=== PATIENT | male | born 1955 | race Caucasian/White ===

== ENCOUNTER 2019-08-16 07:49 | Emergency (ER) | payer OTHER ==
[2019-08-16 08:54] VITALS: BMI 30.4
--- NOTE | 2019-08-16 09:09 | PDOC ---
Attending Attestation - Resident Resident Name: Tyler Olea - ED Attending Attestation I have performed the following: I have examined & evaluated the patient, The case was reviewed & discussed with the resident, I agree w/resident's findings & plan, Exceptions are as noted - HPI HPI: 08/16/19 09:04 64y M hx of CHF, DM, Gerd, HTN, HL, parkinsons, gout, schizoaffective d/o, depression presents fall from bed. Patient states he was in his usual state of health this morning was reaching out for his coffee and slipped off the side of his bed, striking the right faith on a table. Patient denies any LOC, nausea, vomiting, vision changes, focal numbness, tingling, weakness. He does endorse some mild discomfort at the site of injury. Patient also endorses mild right- sided neck pain when he turns his head. Patient denies any other symptoms including chest pain, abdominal pain, palpitations, fever, chills, dysuria, diarrhea. Physical Exam: GENERAL: The patient is awake, alert, and fully oriented, Nontoxic - in no acute distress. HEAD: Normocephalic, moderate tenderness along the right faith without obvious signs of injury including step-offs, ecchymosis, erythema EYES: extraocular movements intact, sclera anicteric, conjunctiva clear. ENT: Normal voice, Moist mucous membranes. No signs of raccoon eyes, leyva signs, hemotympanum NECK: Normal range of motion, supple BACK: No focal bony tenderness along the cervical thoracic or lumbar spine, mild tenderness along the right paracervical musculature. LUNGS: Breath sounds equal, clear to auscultation bilaterally. No wheezes, no rhonchi, no rales. HEART: Regular rate and rhythm, normal S1 and S2 without murmur, rub or gallop. ABDOMEN: Soft, nontender, No guarding, no rebound. No CVA tenderness EXTREMITIES: Normal range of motion, no edema. Moving all 4 extremities spontaneously and symmetrically without discomfort NEUROLOGICAL: No facial assymetry, Normal speech, PSYCH: Normal mood, normal affect. SKIN: Warm, Dry, normal turgor, 64-year-old gentleman presenting with mechanical fall with direct trauma to the right faith and moderate tenderness along the right paraspinal musculature Will obtain CT facial bones, cervical spine and head percocet for pain (he normally tkes it for his back)
--- NOTE | 2019-08-16 09:21 | PDOC ---
History of Present Illness - General Chief Complaint: Injury Stated Complaint: FALL Time Seen by Provider: 08/16/19 08:37 - History of Present Illness Initial Comments: 08/16/19 09:21 64 y/o M hx of CHF, HTN, DM, GERD, HLD, Parkinson's, Gout, Depression, CVA present to the ED after a fall this a.m at [facility]. He was in bed reaching for coffee at bedside table when he fell of the edge. He hit the right side of his head on the table edge. He denies any LOC before or after event. He was BIBEMS. He endorses tenderness on right side of his head. He denies any headache, nausea, vomiting, use of anticoagulation, numbness or tingling on his right side, chest pain, shortness of breath, palpitations. 08/16/19 09:22 Past History - Past Medical History Allergies/Adverse Reactions: Allergies Allergy/AdvReac Type Severity Reaction Status Date / Time No Known Allergies Allergy Verified 08/16/19 08:18 Cardiac Disorders: Yes (HF) COPD: No Diabetes: Yes GI Disorders: (GERD) HTN: Yes Hypercholesterolemia: Yes Psychiatric Problems: Yes (depression, Schizoaffectivde, Bipolar) Other medical history: Parkkinson's, Gout, - Psycho Social/Smoking Cessation Hx Smoking History: Never smoked Have you smoked in the past 12 months: No Hx Alcohol Use: No Drug/Substance Use Hx: No Review of Systems - Review of Systems Comments:: 08/16/19 09:26 GENERAL/CONSTITUTIONAL: No fever or chills. No weakness. HEAD, EYES, EARS, NOSE AND THROAT: No change in vision. No ear pain or discharge. No sore throat. CARDIOVASCULAR: No chest pain or shortness of breath RESPIRATORY: No cough, wheezing, or hemoptysis. GASTROINTESTINAL: No nausea, vomiting, diarrhea or constipation. GENITOURINARY: No dysuria, frequency, or change in urination. MUSCULOSKELETAL: No joint or muscle swelling or pain. No neck or back pain. SKIN: No rash NEUROLOGIC: No headache, vertigo, loss of consciousness, diminishes sensation on right (chronic) ENDOCRINE: No increased thirst. No abnormal weight change *Physical Exam - Vital Signs Last Vital Signs Temp Pulse Resp BP Pulse Ox 98.2 F 92 H 16 128/77 95 08/16/19 07:50 03/12/20 07:50 08/16/19 07:50 08/16/19 07:50 08/16/19 07:50 - Physical Exam 08/16/19 09:11 PE: GENERAL: Awake, alert, and fully oriented, in no acute distress HEAD: echymoses on left mandible and maxilla.old. pt states from dental procedure last week. EYES: EOMI, sclera anicteric, conjunctiva clear ENT: Auricles normal inspection, hearing grossly normal, no hemotympanum nares patent, oropharynx clear without exudates. Moist mucosa NECK: Normal ROM, supple,no c-spine tenderness no lymphadenopathy, JVD, or masses LUNGS: No distress, speaks full sentences, clear to auscultation bilaterally HEART: Regular rate and rhythm, normal S1 and S2, no murmurs, rubs or gallops, peripheral pulses normal and equal bilaterally. ABDOMEN: Soft, nontender, normoactive bowel sounds. No guarding, no rebound. No masses EXTREMITIES : Normal inspection, Normal range of motion, no edema. No clubbing or cyanosis NEUROLOGICAL: Cranial nerves II through XII grossly intact. decreased sensation on the right side SKIN: Warm, Dry, normal turgor, no rashes or lesions noted ED Treatment Course - ADDITIONAL ORDERS Additional order review: Laboratory Results 08/16/19 07:59 POC Glucometer 202 08/16/19 07:59 POC Glucometer 202 Medical Decision Making - Medical Decision Making 08/16/19 09:28 64 y/o M hx of CHF, HTN, DM, GERD, HLD, Parkinson's, Gout, Depression, CVA present to the ED after a fall this a.m at [facility]. workup: head ct and temporal bone ct w/o contrast concern for fracture due to tenderness over temporal bone and zygomatic arch. 08/16/19 11:29 CT results. No evidence of acute intracranial hemorrhage,edema, midline shift, mass effect Or fracture. No acute territorial infarction Mucoperiosteal thickening of right maxillary sinus Calcified atherosclerosis of left vertebral artery Intact facial bones, no acute fracture No tempormandibular joint dislocation Discharge - Discharge Information Problems reviewed: Yes Clinical Impression/Diagnosis: Fall Qualifiers: Encounter type: initial encounter Qualified Code(s): W19.XXXA - Unspecified fall, initial encounter Condition: Stable Disposition: HOME - Admission No - Follow up/Referral Referrals: Pablo Alonso MD [Primary Care Provider] - - Patient Discharge Instructions Additional Instructions: you were seen in the ER after fall. your head Scans did not show any bleeding or fracture. follow up with our primary care provider in the next few days. RETURN TO THE ER if you have headaches, nausea, vomiting or worsening pain. - Post Discharge Activity
[2019-08-16 12:13] VITALS: BP 129/85; PULSE 88; TEMP 98
== END 2019-08-16 12:45 ==
LOC: JER 07:49
DX: S09.8XXA Other specified injuries of head, initial encounter (principal); W01.190A Fall on same level from slipping, tripping and stumbling with subsequent striking against furniture, initial encounter; Y93.89 Activity, other specified; Y92.122 Bedroom in nursing home as the place of occurrence of the external cause; Y99.8 Other external cause status; I11.0 Hypertensive heart disease with heart failure; I50.9 Heart failure, unspecified; E11.9 Type 2 diabetes mellitus without complications; E78.5 Hyperlipidemia, unspecified; K21.9 Gastro-esophageal reflux disease without esophagitis; G20 Parkinson's disease; M10.9 Gout, unspecified; F25.9 Schizoaffective disorder, unspecified; F31.9 Bipolar disorder, unspecified; Z86.73 Personal history of transient ischemic attack (TIA), and cerebral infarction without residual deficits
CPT/HCPCS: 70450-TC; 70486-TC; 72125-TC; 82962; 99284-25

== ENCOUNTER 2019-12-31 22:45 | Emergency (ER) | payer OTHER ==
[2019-12-31 22:55] VITALS: BMI 28.1
--- NOTE | 2020-01-01 00:21 | PDOC ---
History of Present Illness - General Chief Complaint: Back Pain Stated Complaint: BACK PAIN Time Seen by Provider: 01/01/20 00:09 History Source: Patient Exam Limitations: No Limitations - History of Present Illness Initial Comments: 64 yo M with a hx of CHF, DM, GERD, HTN, HLD, CVA (2 years ago; RLE weakness that has since resolved), Parkinson's Disease, Schizoaffective disorder and depression (denies anticoagulant use) presents to the emergency department with RLE weakness. Per the patient, he received an injection on the right lower back for a chronic back pain by his pain management doctor (Dr. Xiong). He received two injections on the right side at 4:30 pm on 12/31/2019 and developed RLE weakness with decreased sensation at approximately 10 pm suddenly. The patient denies fall, trauma, and urinary retention. The patient denies paresthesia within the pelvic region. Denies the following: fevers, chills, SOB, nausea, vomiting, chest pain, dysuria, hematuria, diarrhea, neck pain, UE bilateral weakness, and headache. tPA Exclusion Checklist 0-3hr - Time Elapsed Date last known well: 12/31/19 Time last known well: 22:00 Elaspsed time: 8 Day(s) and 12 Hour(s) and 1 Minutes - Thrombolytic Therapy Candidate Is the patient eligible for Thrombolytic Therapy?: No - Exclusion Criteria 0-3hr SBP greater than 185 or DBP greater than 110mmHg despite tx: No Recent IC/spinal surgery,head trauma or stroke w/in last 3mo: No Hx of previous IC hemorrhage, IC neoplasm, AVM or aneurysm: No Active internal bleeding: No Blding diathesis(low plt ct, inc PTT,INR>1.7 or use of NOAC): No Symptoms suggest subarachnoid hemorrhage: No CT demonstrates multilobar infarct(>1/3 cerebral hemiphere): No Arterial puncture at noncompressible site in previous 7 days: No Blood glucose concentration less than 50mg/dL (2.7mmol/L): No - Relative Exclusion Criteria 0-3h Care team unable to determine eligibility: No IV/IA thrombolysis/thrombectomy @ another hosp prior arrival: No Life expectancy <1yr/severe co-morbid illness/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: No : No Patient/family refused: No Stroke severity too mild (non-disabling): Yes Recent acute GA (w/in previous 3 months): No Seizure at onset with postictal residual neuro impairments: No Major surgery or serious trauma w/in previous 14 days: No Recent GI or hemorrhage (w/in previous 21 days): No - Ineligibility reason(s) Reasons No tPA given: See reason(s) noted above NIH Stroke Scale - Last Known Well Date/Time & Onset Date Last Known Well: 12/31/19 Time Last Known Well: 22:00 - Initial Evaluation Level of consciousness: Alert Ask patient the month and their age: Answers both correctly Ask patient to open & close eyes; make fist and let go: Obeys both correctly Best gaze (horizontal eye movement): Normal Visual field testing: No visual field loss Facial paresis (Show teeth/raise eyebrows/close eyes tight): Normal symmetrical movement Motor Function: Left Arm: Normal Motor Function: Right Arm: Normal (extends arm 90 (or 45) degrees for 10 seconds without drift Motor Function: Left Leg: Normal (extends leg 30 degrees for 5 seconds without drift) Motor Function: Right Leg: Some effort against gravity Limb Ataxia: Present in one limb (right leg) Sensory(Use pinprick test arms,legs,trunk,face/side to side): Mild to moderate decrease in sensation Best language (Describe picture, name items, read sentences): No Aphasia Dysarthria (read several words): Normal articulation Extinction and Inattention: No abnormality - Total Score NIH Stroke Scale Score: 4 Past History - Medical History Allergies/Adverse Reactions: Allergies Allergy/AdvReac Type Severity Reaction Status Date / Time No Known Allergies Allergy Verified 01/09/20 09:55 Home Medications: Ambulatory Orders Acetaminophen 975 mg PO Q8H PRN 01/06/20 Allopurinol 300 mg PO DAILY 01/06/20 Amitriptyline HCl [Elavil -] 50 mg PO DAILY 01/06/20 Amlodipine Besylate 2.5 mg PO DAILY 01/06/20 Ascorbic Acid [Vitamin C] 500 mg PO DAILY 01/06/20 Aspirin [Aspirin EC] 81 mg PO DAILY 01/06/20 Atorvastatin Ca [Lipitor] 80 mg PO HS 01/06/20 Buspirone HCl [Buspar -] 10 mg PO BID 01/06/20 Cholecalciferol (Vitamin D3) [Vitamin D3] 2,000 unit PO DAILY 01/06/20 Haloperidol [Haldol -] 4 mg PO AM 01/06/20 Haloperidol [Haldol -] 5 mg PO HS 01/06/20 Hydrochlorothiazide [Hctz -] 25 mg PO DAILY #30 tablet 01/06/20 Ibuprofen 400 mg PO BID PRN 01/06/20 Insulin Glargine,Hum.rec.anlog [Lantus] 0 unit SQ BID 01/06/20 Insulin Lispro [Humalog] 0 unit SQ ASDIR 01/06/20 Lamotrigine [Lamictal] 150 mg PO BID 01/06/20 Lidocaine 5% Patch [Lidoderm Patch -] 1 patch TP DAILY #7 patch 01/06/20 Losartan Potassium [Cozaar] 25 mg PO DAILY 01/06/20 Metformin HCl [Glucophage] 1,000 mg PO BID 01/06/20 Omeprazole Magnesium [Prilosec Otc] 40 mg PO DAILY 01/06/20 Oxycodone HCl/Acetaminophen [Percocet 10-325 mg Tablet] 1 each PO DAILY PRN 07/26 Pramipexole Di-HCl [Mirapex] 0.25 mg PO BID 01/06/20 Pramipexole Di-HCl [Mirapex] 0.5 mg PO HS 01/06/20 Semaglutide [Ozempic] 1 mg SQ WEEKLY 01/06/20 Sertraline HCl 75 mg PO DAILY 01/06/20 Vitamin B Complex 1 each PO DAILY 01/06/20 Cardiac Disorders: Yes (HF) COPD: No Diabetes: Yes GI Disorders: (GERD) HTN: Yes Hypercholesterolemia: Yes Psychiatric Problems: Yes (depression, Schizoaffectivde, Bipolar) - Psycho-Social/Smoking History Smoking History: Never smoked Have you smoked in the past 12 months: No Information on smoking cessation initiated: No - Substance Abuse Hx (Audit-C & DAST Scrn) How often the patient has a drink containing alcohol: Never Score: In Men: 4 or > Positive; In Women: 3 or > Positive: 0 Screen Result (Pos requires Nsg. Audit-10AR): Negative In the last yr the pt used illegal drug/Rx for NonMed reason: No Score: Yes response is considered Positive: 0 Screen Result (Positive result requires Nsg. DAST-10): Negative Review of Systems - Review of Systems Able to Perform ROS?: Yes Is the patient limited Algerian proficient: No Constitutional: No: Chills, Diaphoresis, Fever HEENTM: No: Eye Pain, Ear Pain, Nose Pain, Throat Pain Respiratory: No: Cough, Shortness of Breath Cardiac (ROS): No: Chest Pain ABD/GI: No: Constipated, Diarrhea, Nausea, Vomiting : No: Burning, Hematuria Musculoskeletal: Yes: Back Pain Integumentary: No: Bruising, Rash Neurological: Yes: Weakness (rle). No: Headache Psychiatric: No: Change in Appetite Endocrine: No: Unexplained Weight Loss Hematologic/Lymphatic: No: Anemia *Physical Exam - Vital Signs Last Vital Signs Temp Pulse Resp BP Pulse Ox 96.6 F L 105 H 16 131/87 97 12/31/19 22:48 12/31/19 22:48 12/31/19 22:48 12/31/19 22:48 12/31/19 22:48 - Physical Exam General Appearance: Yes: Nourished, Appropriately Dressed. No: Apparent Distress, Intoxicated HEENT: positive: EOMI, TITA, Normal Voice, Symmetrical, Pharynx Normal, Hearing Grossly Normal. negative: Pale Conjunctivae, Scleral Icterus (R), Scleral Icterus (L), Muffled/Hoarse voice, Pharyngeal Erythema, Tonsillar Exudate, Tonsillar Erythema, Nasal Congestion, Rhinorrhea, Sinus Tenderness, Excessive drooling Neck: positive: Trachea midline, Supple. negative: Tender, Lymphadenopathy (R), Lymphadenopathy (L), Tender lateral, Tender midline Respiratory/Chest: positive: Lungs Clear, Normal Breath Sounds. negative: Chest Tender, Respiratory Distress, Accessory Muscle Use Cardiovascular: positive: Regular Rhythm, Regular Rate, S1, S2. negative: Systolic Murmur Gastrointestinal/Abdominal: positive: Normal Bowel Sounds, Flat, Soft. negative: Tender Rectal Exam: positive: heme negative stool, normal exam, normal rectal tone Lymphatic: negative: Adenopathy Musculoskeletal: positive: Normal Inspection, Other (2 injection sites noted on the right paraspinal process superior to the posterior iliac spine at the L5 and L1-2 region. no midline tenderness throughout spinal column). negative: CVA Tenderness, Vertebral Tenderness Extremity: positive: Normal Capillary Refill, Normal Inspection. negative: Normal Range of Motion, Tender Integumentary: positive: Normal Color, Dry, Warm Neurologic: positive: doll repairer II-XII NML intact, Fully Oriented, Alert, Normal Mood/Affect. negative: Motor Strength 5/5 (2/5 strength in RLE. decreased sensation in the RLE compared to left LE. ) ED Treatment Course - LABORATORY CBC & Chemistry Diagram: 01/01/20 02:00 01/01/20 02:00 Medical Decision Making - Medical Decision Making 12/31/19 64 yo M with a hx of CHF, DM, GERD, HTN, HLD, CVA (2 years ago; RLE weakness that has since resolved), Parkinson's Disease, Schizoaffective disorder and depression (denies anticoagulant use) presents to the emergency department with RLE weakness. Per the patient, he received an injection on the right lower back for a chronic back pain by his pain management doctor (Dr. Xoing) Initial vitals: Initial Vital Signs Temp Pulse Resp BP Pulse Ox 96.6 F L 105 H 16 131/87 97 12/31/19 22:48 12/31/19 22:48 12/31/19 22:48 12/31/19 22:48 12/31/19 22:48 Work up patient presents with rle weakness. potential for cva vs cauda equina Laboratory Tests 01/01/20 01/01/20 01/01/20 01:45 02:00 02:00 WBC 6.0 RBC 4.66 Hgb 13.9 Hct 41.3 MCV 88.6 MCH 29.7 MCHC 33.6 RDW 14.9 Plt Count 187 MPV 8.4 Absolute Neuts (auto) 4.9 Neutrophils % 82.6 Lymphocytes % 14.4 Monocytes % 2.8 L Eosinophils % 0.1 Basophils % 0.1 Nucleated RBC % 0 PT with INR 12.20 INR 1.03 PTT (Actin FS) 31.8 Sodium Potassium Chloride Carbon Dioxide Anion Gap BUN Creatinine Est GFR (CKD-EPI)AfAm Est GFR (CKD-EPI)NonAf Random Glucose Calcium Total Bilirubin AST ALT Alkaline Phosphatase Creatine Kinase Creatine Kinase Index CK-MB (CK-2) Troponin I Total Protein Albumin Triglycerides Cholesterol Total LDL Cholesterol HDL Cholesterol Urine Color Yellow Urine Appearance Clear Urine pH 7.0 Ur Specific Wenden 1.016 Urine Protein Negative Urine Glucose (UA) 3+ H Urine Ketones Negative Urine Blood Negative Urine Nitrite Negative Urine Bilirubin Negative Urine Urobilinogen 1.0 Ur Leukocyte Esterase Negative 01/01/20 02:00 WBC RBC Hgb Hct MCV MCH MCHC RDW Plt Count MPV Absolute Neuts (auto) Neutrophils % Lymphocytes % Monocytes % Eosinophils % Basophils % Nucleated RBC % PT with INR INR PTT (Actin FS) Sodium 134 L Potassium 4.2 Chloride 100 Carbon Dioxide 26 Anion Gap 9 BUN 9.3 Creatinine 0.9 Est GFR (CKD-EPI)AfAm 103.51 Est GFR (CKD-EPI)NonAf 89.31 Random Glucose 268 H Calcium 10.0 Total Bilirubin 0.7 AST 27 ALT 42 Alkaline Phosphatase 90 Creatine Kinase 326 H Creatine Kinase Index 1.7 CK-MB (CK-2) 5.8 H Troponin I < 0.02 Total Protein 7.0 Albumin 4.0 Triglycerides 76 Cholesterol 118 Total LDL Cholesterol 61 HDL Cholesterol 45 Urine Color Urine Appearance Urine pH Ur Specific Wenden Urine Protein Urine Glucose (UA) Urine Ketones Urine Blood Urine Nitrite Urine Bilirubin Urine Urobilinogen Ur Leukocyte Esterase CT was completed for potential stroke. Patient stated after CT scan the LLE became weak to the same severity of the RLE with decreased sensation. Patient is noted to have normal rectal tone. The patient states both legs are equally weak . Call was placed to Dr. Melgar. Spoke to Dr. Melgar who agrees patient is likely have a spinal process given the changing neurological deficits. Agrees that alteplase is not warranted. Per Dr. Melgar, he agrees the patient may need possible emergent MRI. Placed a call to Dr. Villalobos at 1:20 am. No call received. Placed a second call to Dr. Villalobos at 1:56 am. Placed a third call to Dr. Villalobos at 2:26 am[address] Received call from Dr. Villalobos. Per Dr. Villalobos, the patient needs an emergent MRI capability. I spoke to Tyler, the nursing supervisor diagnostic, who states there is no one hyperion administrator definitively, however I would need to call radiology to get the process started. Per Dr. Villalobos, whichever is faster for the patient, whether it is MRI at [facility] or our own facilities, is best for patient care. No one at [facility] is hyperion administrator for MRI per Tyler the nursing supervisor diagnostic. I called [facility] at 2:40 am and had auto-accept of the patient by their transfer center with Dr. Carcamo. Patient was made aware of the transfer and agreed. The patient is being transferred to [facility] because that is a facility they are familiar with and had extensive care there in the past. Dispo: Transfer Discharge - Discharge Information Problems reviewed: Yes Clinical Impression/Diagnosis: Lower extremity weakness Qualifiers: Laterality: left Qualified Code(s): R29.898 - Other symptoms and signs involving the musculoskeletal system Condition: Fair Disposition: TRANSFER ACUTE CARE/OTHER HOSP - Follow up/Referral - Patient Discharge Instructions - Post Discharge Activity - Transfer to Acute Care Facility Receiving Facility Name: [facility]
[2020-01-01] MEDS ORDERED: SODIUM CHLORIDE 1,000 ML IV SCH (01:00)
[2020-01-01 02:09] VITALS: PULSE 100
[2020-01-01 02:18] LABS: BASO % 0.1 % (0-2.0); EOS % 0.1 % (0-4.5); HEMATOCRIT 41.3 % (35.4-49); HEMOGLOBIN 13.9 GM/dL (11.7-16.9); LYMPH % 14.4 % (8-40); MCH 29.7 pg (25.7-33.7); MCHC 33.6 g/dl (32.0-35.9); MEAN CELL VOLUME 88.6 fl (80-96); MEAN PLT VOLUME 8.4 fl (7.5-11.1); MONO % 2.8 % (3.8-10.2); NEUT % 82.6 % (42.8-82.8); PLATELET COUNT 187 K/MM3 (134-434); RBC 4.66 M/mm3 (4.00-5.60); RDW 14.9 % (11.9-15.9)
[2020-01-01 02:22] LABS: URINE APPEARANCE CLEAR; URINE BILIRUBIN NEGATIVE (NEGATIVE); URINE COLOR YELLOW; URINE GLUCOSE (UA) 3+ (NEGATIVE); URINE KETONE NEGATIVE (NEGATIVE); URINE LEUK ESTERASE NEGATIVE (NEGATIVE); URINE NITRITE NEGATIVE (NEGATIVE); URINE PROTEIN NEGATIVE (NEGATIVE)
[2020-01-01 02:29] LABS: INR 1.03 (0.83-1.09); PROTHROMBIN TIME (PATIENT) 12.2 SEC (9.7-13.0)
[2020-01-01 02:32] LABS: ACTIVATED PTT 31.8 SECONDS (25.2-36.5)
[2020-01-01 02:40] LABS: ALK PHOS 90 U/L (45-117); ANION GAP 9 MMOL/L (8-16); BILIRUBIN,TOTAL 0.7 mg/dL (0.2-1); BLOOD UREA NITROGEN 9.3 mg/dL (7-18); CHLORIDE 100 mmol/L (98-107); CHOLESTEROL 118 mg/dL (50-200); CO2 26 mmol/L (21-32); CREATININE 0.9 mg/dL (0.55-1.3); GLUCOSE,RANDOM 268 mg/dL (74-106); HDL CHOLESTEROL 45 mg/dL (40-60); LDL CHOLESTEROL (ONLY SJRH) 61 mg/dL (5-100); POTASSIUM 4.2 mmol/L (3.5-5.1); SGOT/AST 27 U/L (15-37); SGPT/ALT 42 U/L (13-61); SODIUM 134 mmol/L (136-145); TRIGLYCERIDES 76 mg/dL (0-150)
--- NOTE | 2020-01-01 02:46 | PN ---
Progress Note (short form) - Note Progress Note: NEUROSURGERY CONSULT DICTATED Patient examined Chart reviewed History obtained Care d/w ED team h/o CHF, DM, GERD, HTN, HLD, Parkinson's Disease, Schizoaffective disorder and depression not on anticoagulant presents to the emergency department with RLE weakness and numbness since late last night. Had "10 injections" by Dr Marshall this afternoon at about 4:30 pm. About 10 pm he started feeling R LE then 10:30 pm L LE numbness and weakness. Assisted living facility called ambulance and he was sent to ED for evaluation and treatment. Claims he never had much pain before or after the injection. Able to void in ED spontaneously. No incontinence. PE: AF, VSS' pleasant, not under distress "I do not want surgery" General- mildly obese Speech occasionally stuttering CN- II-XII intact; Motor- B UE 5/5, prox B LE 0/5 initially but within 5 minutes, became 2/5 on L and 1/5 on R; distal LE (EHL/TA/ev/inv) went from L side 4- to 5/5 and R side 3/5 to 4+-5/5 in a 5-10 min span; generally increased tone B LE; Sensation- decreased LT/PP/vibration R LE from upper thigh anteriorly down; + perineal sensation; Back- 2 pen pfeiffer on R L3 and L4 paraspinal region 8-10 cm to R; Rectal tone- positive volitional (ED resident); Back- minimal tenderness R > L, positive SLR on R at 30 degrees. and able to help turn himself to L side with R knee bending/pushing Head CT- mild atrophy, mild periventricular small vessel dz LS spine CT- multilevel DDD, facet hypertrophy, mild L5-s1 disc bulge R > L; no significant stenosis at any level Pelvic CT- no large retroperitoneal hematoma Lumbar DDD/DJD s/p Injections and with highly fluctuating and inconsistent neurological exam and symptoms not consistent with the minimal CT scan findings/changes Emergency MRI indicated to assess brain (acute ischemia) and lumbar spinal canal/nerve/cauda equina impingement (informed by ED attending and resident that MRI has not been possible at night), I asked to concurrently work on transfer and emergency MRI. 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
[2020-01-01] MEDS ORDERED: ACETAMINOPHEN 1000 MG/100 ML VIAL (NON FORMULARY) IVPB ONE (02:55)
[2020-01-01] MEDS ORDERED: ACETAMINOPHEN INJECTION 100 ML IVPB ONE (02:58)
--- NOTE | 2020-01-01 02:58 | PDOC ---
Attending Attestation - Resident Resident Name: Bigg Marin - ED Attending Attestation I have performed the following: I have examined & evaluated the patient, The case was reviewed & discussed with the resident, I agree w/resident's findings & plan - HPI HPI: 01/01/20 02:54 see resident hpi - Physicial Exam PE: 01/01/20 02:54 see resident exam - Medical Decision Making 01/01/20 02:64-year-old male status post right sacroiliac region injection now with weakness of the right lower extremity that began at approximately 10 PM Patient 6 exam has been fluctuating with reports of weakness to the left lower extremity as well CT scan of the brain showed no acute abnormality CT scan of the lumbosacral/pelvic region showed no obvious hematoma, there is disease at the right L5 foraminal region Case discussed with neurology as well as neurosurgery It was determined that patient would benefit from MRI emergently In-house MRI availability delayed due to availability of automotive tire technician Call placed to tertiary care center for the benefit of patient care Transfer was auto accepted by Dr Carcamo at [facility], Discharge - Discharge Information Problems reviewed: Yes Clinical Impression/Diagnosis: Lower extremity weakness Condition: Fair - Follow up/Referral - Patient Discharge Instructions - Post Discharge Activity
[2020-01-01] MEDS ORDERED: DEXAMETHASONE SOD PHOSPHATE 10 MG/1 ML VIAL IVPUSH ONE (03:31)
[2020-01-01] MEDS ORDERED: DEXAMETHASONE SOD PHOSPHATE 10 MG/1 ML VIAL ONE (03:35)
[2020-01-01 03:52] VITALS: BP 148/83; TEMP 98.3
--- NOTE | 2020-01-01 09:13 | EKG ---
Test Reason : Blood Pressure : / mmHG Vent. Rate : 101 BPM Atrial Rate : 101 BPM P-R Int : 174 ms QRS Dur : 080 ms QT Int : 338 ms P-R-T Axes : 019 -15 013 degrees QTc Int : 438 ms SINUS TACHYCARDIA INFERIOR INFARCT , AGE UNDETERMINED ABNORMAL ECG NO PREVIOUS ECGS AVAILABLE Confirmed by MD OSMAN, PÉREZ ([id number]) on 01/01/2020 9:13:34 AM Referred By: Confirmed By:PÉREZ BREWER MD
--- NOTE | 2020-01-01 20:01 | CONS ---
DATE OF CONSULTATION: 01/01/2020 CHIEF COMPLAINT: Inability to move lower extremity status post spinal injection. HISTORY OF PRESENT ILLNESS: The patient is a 64-year-old right-handed male with a history of multiple medical issues including stroke, hypertension, diabetes, congestive heart failure, gastroesophageal reflux disease, Parkinson disease, schizoaffective disorder and depression, who presented to the emergency room initially with right greater than left lower extremity weakness and numbness. The patient states that he may have had something for back pain in the past, but did not have any pain as bad recently much. He saw Dr. Marshall earlier this afternoon at about 4:30 p.m. and underwent "10 injections in my back." After the injection, he had slight pain, but he was able to return to his assisted living facility by report. At approximately 10 o'clock, he started experiencing right-sided leg weakness and numbness and subsequently followed half an hour later with left lower extremity weakness and numbness. He has no upper extremity symptoms whatsoever. He had no bowel, bladder incontinence. He was able to void. Because of his progressive symptoms, ambulance was called, and he is here in the emergency room for an evaluation and treatment. Presently, the patient denies any lower back pain. He has no significant sciatica. He has no chest pain or shortness of breath. He has no diaphoresis. He is generally comfortable. Upon initial examination by the emergency department, he could not move his legs much at all. He was initially presumptive diagnosis was possibly stroke, because of the history of stroke. PAST MEDICAL HISTORY: Significant for CVA, diabetes, hypertension, CHF, gastroesophageal reflux disease, Parkinson disease, schizoaffective disorder, depression. CURRENT MEDICATIONS: List is not available to me. The patient does not have the list with him either. ALLERGIES: No known drug allergies. FAMILY HISTORY: Noncontributory. SOCIAL HISTORY: He does not smoke nor drink. He lives in an assisted living facility. He does not work. REVIEW OF SYSTEMS: Otherwise negative for other major constitutional, head/neck, cardiovascular, pulmonary, gastrointestinal, genitourinary, endocrinologic, neurologic, or psychological problems except for the above. Specifically, he has no fever or chills, no recent coughs, nor any significant travels. PHYSICAL EXAMINATION: Vital signs: Temperature is 97.9, blood pressure 147/91 with pulse rate 100, O2 saturation is 95% on room air. General: The patient is comfortable, and he is not in acute distress. HEENT: Normocephalic, atraumatic, anicteric. Neck: Supple. Coronary: Regular rhythm. Lungs: Clear bilaterally. Abdomen: Benign. Extremities: No signs of DVT. Neurologic: He is awake, alert, oriented x4. He has an occasional stuttered speech. Cranial nerves examination intact 2-12. Motor examination shows 5/5 strength in bilateral upper and lower extremities. Proximal bilateral lower extremities 0/5 upon volitional testing. Left lower extremity distally including extensor hallucis longus on the left was initially 4- out of 5, but within about 5 to 10 minutes was 5 out of 5. Right distal lower extremity initially was 3 out of 5 but after 5 to 10 minutes was approximately 4+ to 5 over 5. Sensory examination is intact peroneal sensation. He has numbness to light touch, pinprick, and vibratory sensation to right anterior thigh down in a circumferential pattern. He retains peroneal sensation. He has a positive volitional rectal tone. He has a positive straight leg raise on the right at about 30 degrees. There is right-sided paraspinal pen marking around L3 and L4 level in approximately 8 cm off the midline to the right. This is likely from the injection yesterday afternoon. Cerebellar examination demonstrated normal coordination. He has mild resting tremor. He has no intentional tremor. LABORATORY EXAMINATION: White blood cell count of 6, hemoglobin of 13.9, platelet count 187,000. INR is 1.03, and PTT is 31.8. Serum sodium is 134, and potassium is 4.0, 4.2. BUN and creatinine are 9.3 and 0.9, respectively. Troponin was less than 0.02. Urinalysis was negative except for 3+ glucose. CT scan of the head demonstrated mild cerebral atrophy with mild periventricular small vessel disease. There is no acute bleed for fracture. CT scan lumbar spine demonstrated multilevel lumbar degenerative disk disease with spondylosis and facet hypertrophy. There is mild L5-S1 disk bulge right greater than left. There is no significant spinal stenosis at any level. CT scan of the pelvis did not demonstrate significant retroperitoneal hematoma. IMPRESSION: 1. Lumbar degenerative disk disease/facet disease. 2. History of cerebrovascular accident. 3. Hypertension/congestive heart failure. 4. Diabetes. 5. Parkinson disease. 6. Schizoaffective disorder, depression. RECOMMENDATION: The patient presented with increasing right greater than left lower extremity weakness and numbness over the course of 6 hours following his lumbar injection this afternoon. He stated that he could barely move his right leg initially, but then the weakness and numbness involved his left lower extremity subsequently about 10:30 p.m. His examination is highly inconsistent and fluctuating even during my time at the bedside over about an hour with him. Initially, he has 3 out of 5 strength in the right foot dorsiflexion and plantarflexion, which improved to 4+ to 5 over 5 over a few minutes. His left lower extremity strength went from 4- out of 5 to 5 out of 5 distally over the course of 5 to 10 minutes also. His proximal lower extremity would remain weak, and they do not appear to be significantly pain limited, as he appears very comfortable during the examination. He also has positive volitional rectal tone. CT scan of the lumbar spine does not demonstrate significant intracanalicular pathology. He only has mild disk bulges at L5-S1 with multilevel fact disease. The head CT scan did not demonstrate a large territorial infarct or hematoma. Specifically, he also has no headache or other upper extremity findings nor complaints. The patient's clinical complaint and examination is not consistent with the imaging findings, and an emergency MRI of the brain and at least lumbar spine (possibly thoracic) are needed to better elucidate the cause of his current symptomatology. I called the on-call nursing railroad car cleaning supervisor, who is not certain how to contact the on-call radiologist. The emergency room team has also made the same attempt without success. I have asked the emergency department team to concurrently to work on the emergency MRI and the transfer to [facility]. At the end of the consultation, the patient was accepted to [facility] by Dr. Harden. The 10-mg Decadron is recommended to the emergency room attending. The patient was informed of the above plan, and he is agreeable to being transferred and to have the appropriate imaging studies done, and any necessary intervention as indicated. Given his significant improvement, at least in the distal lower extremity strength, surgical intervention would likely not be needed, especially given the relatively benign CT scan findings. LOVE ALBRECHT M.D. [id number] MTDNahed
== END 2020-01-01 04:02 | disposition short-term general hospital (02) ==
LOC: JER 22:45
PROC: 3E033NZ Introduction of Analgesics, Hypnotics, Sedatives into Peripheral Vein, Percutaneous Approach (ICD-10-PCS; principal; 2019-12-31)
PROC: 3E033GC Introduction of Other Therapeutic Substance into Peripheral Vein, Percutaneous Approach (ICD-10-PCS; 2019-12-31)
DX: R53.1 Weakness (principal)
CPT/HCPCS: 36415; 70450-TC; 71045-TC-FY; 72131-TC; 72192-TC; 80053; 80061; 81003; 82550; 82553; 83721; 84484; 85025; 85610; 85730; 93005; 93010; 99285-25; J0131; J1100

== ENCOUNTER 2020-01-05 23:46 | Emergency (ER) | payer OTHER ==
[2020-01-05 23:53] VITALS: BMI 31.8
[2020-01-05 23:54] VITALS: TEMP 98.9
[2020-01-06] MEDS ORDERED: ACETAMINOPHEN 500 MG TABLET (FP) PO ONE (01:52)
[2020-01-06] MEDS ORDERED: LIDOCAINE 5% TOPICAL PATCH TP ONE (01:57)
--- NOTE | 2020-01-06 02:01 | PDOC ---
History of Present Illness - General Chief Complaint: Weakness Stated Complaint: INCREASED HEART RATE/WEAKNESS/HANDS/FEET Time Seen by Provider: 01/06/20 01:11 - History of Present Illness Initial Comments: 01/06/20 01:49 64 y/o M hx of CHF, DM, GERD, HTN, HLD, CVA (2 years ago; RLE weakness that has since resolved), Parkinson's Disease, Schizoaffective disorder and depression presenting to ED with complaint of numbness in both legs and headache. reports was not able to get his pain medications at his assisted facility due to inability of nursing. Pt denies any vision change, palpitations, cough, wheezing, orthopena, PND, leg swelling, SOB, urinary complaints, hematuria, BPR, abdominal pain, diarrhea, constipation, lightheadedness, PMHx: as noted above ROS: as noted SHx: Denies Etoh, IVDA, tobacco use Allergies: NKDA ROS: GENERAL/CONSTITUTIONAL: No fever or chills. No weakness. HEAD, EYES, EARS, NOSE AND THROAT: No change in vision. No ear pain or discharge. No sore throat. CARDIOVASCULAR: No chest pain or shortness of breath RESPIRATORY: No cough, wheezing, or hemoptysis. GASTROINTESTINAL: No nausea, vomiting, diarrhea or constipation. GENITOURINARY: No dysuria, frequency, or change in urination. MUSCULOSKELETAL: No joint or muscle swelling or pain. No neck or back pain. SKIN: No rash NEUROLOGIC: No headache, vertigo, loss of consciousness, or change in strength/sensation. ENDOCRINE: No increased thirst. No abnormal weight change HEMATOLOGIC/LYMPHATIC: No anemia, easy bleeding, or history of blood clots. ALLERGIC/IMMUNOLOGIC: No hives or skin allergy. PE: GENERAL: Awake, alert, and fully oriented, in no acute distress HEAD: No signs of trauma, normocephalic, atraumatic EYES: PERRLA, EOMI, sclera anicteric, conjunctiva clear ENT: Auricles normal inspection, hearing grossly normal, nares patent, oropharynx clear without exudates. Moist mucosa NECK: Normal ROM, supple, no lymphadenopathy, JVD, or masses LUNGS: No distress, speaks full sentences, clear to auscultation bilaterally HEART: Regular rate and rhythm, normal S1 and S2, no murmurs, rubs or gallops, peripheral pulses normal and equal bilaterally. ABDOMEN: Soft, nontender, normoactive bowel sounds. No guarding, no rebound. No masses EXTREMITIES : Normal inspection, Normal range of motion, no edema. No clubbing or cyanosis NEUROLOGICAL: Cranial nerves II through XII grossly intact. Normal speech,, no focal sensorimotor deficits. Pt ambulates with cane at baseline. SKIN: Warm, Dry, normal turgor, no rashes or lesions noted 02/21/20 21:21 Past History - Medical History Allergies/Adverse Reactions: Allergies Allergy/AdvReac Type Severity Reaction Status Date / Time No Known Allergies Allergy Verified 01/09/20 09:55 Home Medications: Ambulatory Orders Acetaminophen 975 mg PO Q8H PRN 01/06/20 Allopurinol 300 mg PO DAILY 01/06/20 Amitriptyline HCl [Elavil -] 50 mg PO DAILY 01/06/20 Amlodipine Besylate 2.5 mg PO DAILY 01/06/20 Ascorbic Acid [Vitamin C] 500 mg PO DAILY 01/06/20 Aspirin [Aspirin EC] 81 mg PO DAILY 01/06/20 Buspirone HCl [Buspar -] 10 mg PO BID 01/06/20 Cholecalciferol (Vitamin D3) [Vitamin D3] 2,000 unit PO DAILY 01/06/20 Haloperidol [Haldol -] 5 mg PO BID 01/06/20 Hydrochlorothiazide [Hctz -] 25 mg PO DAILY #30 tablet 01/06/20 Insulin Glargine,Hum.rec.anlog [Lantus] 0 unit SQ BID 01/06/20 Insulin Lispro [Humalog] 0 unit SQ TID 01/06/20 Lamotrigine [Lamictal] 150 mg PO BID 01/06/20 Lidocaine 5% Patch [Lidoderm Patch -] 1 patch TP DAILY #7 patch 01/06/20 Losartan Potassium [Cozaar] 75 mg PO DAILY 01/06/20 Metformin HCl [Glucophage] 1,000 mg PO BID 01/06/20 Omeprazole Magnesium [Prilosec Otc] 40 mg PO DAILY 01/06/20 Oxycodone HCl/Acetaminophen [Percocet 10-325 mg Tablet] 1 each PO DAILY PRN 01/06/20 Pramipexole Di-HCl [Mirapex] 0.25 mg PO BID 01/06/20 Pramipexole Di-HCl [Mirapex] 0.5 mg PO HS 01/06/20 Semaglutide [Ozempic] 1 mg SQ WEEKLY 01/06/20 Sertraline HCl 75 mg PO DAILY 01/06/20 Vitamin B Complex 1 each PO DAILY 01/06/20 Atorvastatin Ca [Lipitor] 80 mg PO HS 01/09/20 Haloperidol [Haldol -] 5 mg PO BID 01/09/20 Cardiac Disorders: Yes (HF) COPD: No Diabetes: Yes GI Disorders: (GERD) HTN: Yes Hypercholesterolemia: Yes Psychiatric Problems: Yes (depression, Schizoaffectivde, Bipolar) - Psycho-Social/Smoking History Smoking History: Never smoked Have you smoked in the past 12 months: No Information on smoking cessation initiated: No - Substance Abuse Hx (Audit-C & DAST Scrn) How often the patient has a drink containing alcohol: Never Score: In Men: 4 or > Positive; In Women: 3 or > Positive: 0 Screen Result (Pos requires Nsg. Audit-10AR): Negative In the last yr the pt used illegal drug/Rx for NonMed reason: No Score: Yes response is considered Positive: 0 Screen Result (Positive result requires Nsg. DAST-10): Negative *Physical Exam - Vital Signs Last Vital Signs Temp Pulse Resp BP Pulse Ox 98.9 F 99 H 22 H 152/88 97 01/05/20 23:54 01/05/20 23:51 01/05/20 23:51 01/05/20 23:51 01/05/20 23:51 Medical Decision Making - Medical Decision Making 01/06/20 03:04 64 y/o M hx of CHF, DM, GERD, HTN, HLD, CVA (2 years ago; RLE weakness that has since resolved), Parkinson's Disease, Schizoaffective disorder and depression presenting to ED with complaint of numbness in both legs and headache no focal neurological deficits pt reports calling 911 himself because of his headache. endorsing back pain no bowel/bladder symptoms or changes from baseline strength 5/5. sensation intact. pt reports feeling well and that numbness is resolved gave him his facility dose of percocet . will d/c back to faciliyt 02/21/20 21:22 Discharge - Discharge Information Problems reviewed: Yes Clinical Impression/Diagnosis: Chronic pain Qualifiers: Chronic pain type: other chronic pain Qualified Code(s): G89.29 - Other chronic pain Condition: Stable Disposition: RETIREMENT FACILITY - Additional Discharge Information Prescriptions: Hydrochlorothiazide [Hctz -] 25 mg PO DAILY #30 tablet - Follow up/Referral - Patient Discharge Instructions - Post Discharge Activity
[2020-01-06] MEDS ORDERED: ACETAMINOPHEN 325 MG TABLET (FP) ONE (02:04)
[2020-01-06] MEDS ORDERED: LIDOCAINE 5% TOPICAL PATCH ONE (02:04)
[2020-01-06 02:12] VITALS: BP 163/92; PULSE 92
[2020-01-06] MEDS ORDERED: HYDROCHLOROTHIAZIDE 25 MG TABLET (FP) PO ONE (02:33)
--- NOTE | 2020-01-06 02:33 | PDOC ---
Documentation entered by Kelly Sims SCRIBE, acting as scribe for Michelle Mccollum MD. Michelle Mccollum MD: This documentation has been prepared by the danielibeLevi Lincy, SCRIBE, under my direction and personally reviewed by me in its entirety. I confirm that the documentation accurately reflects all work, treatment, procedures, and medical decision making performed by me. Attending Attestation - Resident Resident Name: Tyler Olea - ED Attending Attestation I have performed the following: I have examined & evaluated the patient, The case was reviewed & discussed with the resident, I agree w/resident's findings & plan - HPI HPI: 01/06/20 02:08 The patient is a 64-year-old male with a past medical history significant for HTN, CHF, DM, and CVA (2 years ago) who presents to the emergency department via EMS for a headache and numbness. The patient was seen at the ER on 12/31 for right lower extremity weakness. The patients CT scan was significant for lumbar spine canal/nerve/cauda equina imp ingement and the patient was transferred to [facility] for an emergent MRI. - Physicial Exam PE: 01/06/20 02:29 afebrile VSS Bp diastolic slight elevation. abd soft NT ND no flank pain pt has normal HR clear lungs moving all extremities Pt has slurred speech whichis normal for himself - Medical Decision Making 01/06/20 02:31 64y M hx of CHF, DM, Gerd, HTN, HL, parkinsons, gout, schizoaffective d/o, depression and CVA in the past. Pt called ambulance because his BP was high and he had a CORRALES and he was upset and wanted to be evaluated. Pt will be given HCTZ in addition to his other meds. Heart Score/ECG Review - ECG Intrepretation Rhythm: Regular Rhythm - D[place]edom Dukedom: Normal - P and MA Delta Wave(s) Present: No WPW: No - QRS Poor R Wave Progression: No Q Wave Present: No - ST and T Early Repolarization: No Non Specific ST-T Wave changes: No Flattened T Waves: No Prolonged Q-T Interval: No - ECG Impressions Normal ECG: Yes Non-specific ST Elevation: No Ischemic Changes: No Tachycardia: Sinus Discharge - Discharge Information Problems reviewed: Yes Clinical Impression/Diagnosis: Chronic pain Qualifiers: Chronic pain type: other chronic postprocedural pain Qualified Code(s): G89.28 - Other chronic postprocedural pain Condition: Stable Disposition: ASSISTED FACILITY - Additional Discharge Information Prescriptions: Hydrochlorothiazide [Hctz -] 25 mg PO DAILY #30 tablet - Follow up/Referral - Patient Discharge Instructions - Post Discharge Activity
[2020-01-06] MEDS ORDERED: HYDROCHLOROTHIAZIDE 25 MG TABLET (FP) ONE (02:38)
[2020-01-06] MEDS ORDERED: LIDOCAINE PATCH REMOVAL MC SCH (22:00)
--- NOTE | 2020-01-07 10:03 | EKG ---
Test Reason : Blood Pressure : / mmHG Vent. Rate : 103 BPM Atrial Rate : 103 BPM P-R Int : 150 ms QRS Dur : 078 ms QT Int : 330 ms P-R-T Axes : 005 -09 019 degrees QTc Int : 432 ms SINUS TACHYCARDIA OTHERWISE NORMAL ECG WHEN COMPARED WITH ECG OF 01-JAN-2020 01:25, NO SIGNIFICANT CHANGE WAS FOUND Confirmed by Milind Telles ([id number]) on 01/07/2020 10:03:27 AM Referred By: Confirmed By:Milind Telles
== END 2020-01-06 03:59 ==
LOC: JER 23:46
DX: G89.28 Other chronic postprocedural pain (principal)
CPT/HCPCS: 36415; 71045-TC-FY; 80053; 81003; 82550; 82553; 84484; 85025; 85610; 86850; 86900; 86901; 87086; 93005; 93010; 99285-25

== ENCOUNTER 2020-01-06 18:07 | Emergency (ER) | payer OTHER ==
[2020-01-06 18:37] VITALS: BMI 22.6
[2020-01-06 18:51] VITALS: BP 122/76; PULSE 86; TEMP 99.3
--- NOTE | 2020-01-06 20:23 | PDOC ---
History of Present Illness <Cortez Gilbert - Last Filed: 01/06/20 20:26> - History of Present Illness Initial Comments: 01/06/20 20:18 64yo M PMH Parkinson's and CVA p/w numbness and tingling of the LEs. This is the same symptom he experienced this morning that led him to go to the [facility]. Per pt: [facility] ED MD d/c him this morning with resolution of sx. He then went home and got into bed. He felt the numbness and weakness return, so he came to this ED. He reports no falls, no LOC, no other neurological symptoms. PMH/PSH/SHx - see note from this AM ROS CONSTITUTIONAL: Absent: fever, chills, diaphoresis, generalized weakness, malaise, loss of appetite HEENT: Absent: rhinorrhea CARDIOVASCULAR: Absent: chest pain, syncope RESPIRATORY: Absent: cough, shortness of breath, dyspnea with exertion GASTROINTESTINAL: Absent: abdominal pain, abdominal distension, nausea, vomiting GENITOURINARY: Absent: dysuria MUSCULOSKELETAL: Absent: myalgia SKIN: Absent: rash, itching, pallor NEUROLOGIC: Absent: headache, focal weakness or paresthesias, dizziness, seizure PE GENERAL: Well developed, well nourished. Awake and alert. No acute distress. HEENT: Normocephalic, atraumatic. PERRLA, EOMI. NECK: Supple. Full ROM CARDIOVASCULAR: Regular rate and rhythm. No murmurs, rubs, or gallops. Distal pulses are 2+ and symmetric. PULMONARY: No evidence of respiratory distress. Lungs clear to auscultation bilaterally. No wheezing, rales or rhonchi. ABDOMINAL: Soft. Non-tender. Non-distended. No rebound or guarding. No organomegaly. Normoactive bowel sounds. MUSCULOSKELETAL Normal range of motion at all joints. No bony deformities or tenderness. No CVA tenderness. EXTREMITIES: No cyanosis. No clubbing. No edema. No calf tenderness. SKIN: Warm and dry. Normal capillary refill NEUROLOGICAL: Alert, awake, appropriate. PSYCHIATRIC: Cooperative. Good eye contact. Appropriate mood and affect. Discussed case with Neurology, who agreed that pt should be d/c w/ f/u in office. <Ruperto Garcia - Last Filed: 01/06/20 21:47> - General Chief Complaint: Psychiatric Stated Complaint: NUMBNESSANXIETY Time Seen by Provider: 01/06/20 19:38 Past History - Substance Abuse Hx (Audit-C & DAST Scrn) [place] [facility] Search Results (Ref # [id number]) Rx Written Rx Dispensed Drug Quantity Days Supply Prescriber Name 11/27/2019 11/28/2019 oxycodone-acetaminophen 10-325 mg tablet 30 30 Ty Xiong 11/08/2019 11/09/2019 oxycodone-acetaminophen 10-325 mg tablet 30 30 Rohatgi, Pablo 10/11/2019 10/12/2019 oxycodone-acetaminophen 10-325 mg tablet 30 30 Rohatgi, Pablo 09/13/2019 09/14/2019 oxycodone-acetaminophen 10-325 mg tablet 30 30 Rohatgi, Pablo 08/03/2019 08/04/2019 oxycodone-acetaminophen 10-325 mg tablet 30 30 XiongTy 08/01/2019 08/01/2019 oxycodone-acetaminophen 10-325 mg tablet 40 30 Ty Xiong 07/03/2019 07/06/2019 oxycodone-acetaminophen 10-325 mg tablet 40 30 Ty Xiong 06/05/2019 06/06/2019 oxycodone-acetaminophen 10-325 mg tablet 40 30 Ty Xiong 06/05/2019 06/05/2019 oxycodone-acetaminophen 10-325 mg tablet 40 30 Ty Xiong 05/02/2019 05/09/2019 oxycodone-acetaminophen 10-325 mg tablet 30 30 Ty Xiong 04/05/2019 04/15/2019 oxycodone-acetaminophen 10-325 mg tablet 30 30 Ty Xiong 03/23/2019 03/23/2019 oxycodone-acetaminophen 10-325 mg tablet 30 30 Ty Xiong 03/13/2019 03/16/2019 oxycodone-acetaminophen 5-325 mg tablet 60 30 Ty Xiong <Cortez Gilbert - Last Filed: 01/06/20 20:26> - Medical History Cardiac Disorders: Yes (HF) CVA: Yes COPD: No Diabetes: Yes GI Disorders: (GERD) HTN: Yes Hypercholesterolemia: Yes Psychiatric Problems: Yes (depression, Schizoaffectivde, Bipolar. anxiety) - Psycho-Social/Smoking History Smoking History: Unknown if ever smoked Have you smoked in the past 12 months: No Information on smoking cessation initiated: No - Substance Abuse Hx (Audit-C & DAST Scrn) How often the patient has six or more drinks on one occasion: Never Score: In Men: 4 or > Positive; In Women: 3 or > Positive: 0 Screen Result (Pos requires Nsg. Audit-10AR): Negative In the last yr the pt used illegal drug/Rx for NonMed reason: No Score: Yes response is considered Positive: 0 Screen Result (Positive result requires Nsg. DAST-10): Negative <Ruperto Garcia - Last Filed: 01/06/20 21:47> - Medical History Allergies/Adverse Reactions: Allergies Allergy/AdvReac Type Severity Reaction Status Date / Time No Known Allergies Allergy Verified 01/06/20 19:39 Home Medications: Ambulatory Orders Acetaminophen 975 mg PO Q8H PRN 01/06/20 Allopurinol 300 mg PO DAILY 01/06/20 Amitriptyline HCl [Elavil -] 50 mg PO DAILY 01/06/20 Amlodipine Besylate 2.5 mg PO DAILY 01/06/20 Ascorbic Acid [Vitamin C] 500 mg PO DAILY 01/06/20 Aspirin [Aspirin EC] 81 mg PO DAILY 01/06/20 Atorvastatin Ca [Lipitor] 80 mg PO HS 01/06/20 Buspirone HCl [Buspar -] 10 mg PO BID 01/06/20 Cholecalciferol (Vitamin D3) [Vitamin D3] 2,000 unit PO DAILY 01/06/20 Haloperidol [Haldol -] 4 mg PO AM 01/06/20 Haloperidol [Haldol -] 5 mg PO HS 01/06/20 Hydrochlorothiazide [Hctz -] 25 mg PO DAILY #30 tablet 01/06/20 Ibuprofen 400 mg PO BID PRN 01/06/20 Insulin Glargine,Hum.rec.anlog [Lantus] 0 unit SQ BID 01/06/20 Insulin Lispro [Humalog] 0 unit SQ ASDIR 01/06/20 Lamotrigine [Lamictal] 150 mg PO BID 01/06/20 Lidocaine 5% Patch [Lidoderm Patch -] 1 patch TP DAILY #7 patch 01/06/20 Losartan Potassium [Cozaar] 25 mg PO DAILY 01/06/20 Metformin HCl [Glucophage] 1,000 mg PO BID 01/06/20 Omeprazole Magnesium [Prilosec Otc] 40 mg PO DAILY 01/06/20 Oxycodone HCl/Acetaminophen [Percocet 10-325 mg Tablet] 1 each PO DAILY PRN 01/06/20 Pramipexole Di-HCl [Mirapex] 0.25 mg PO BID 01/06/20 Pramipexole Di-HCl [Mirapex] 0.5 mg PO HS 01/06/20 Semaglutide [Ozempic] 1 mg SQ WEEKLY 01/06/20 Sertraline HCl 75 mg PO DAILY 01/06/20 Vitamin B Complex 1 each PO DAILY 01/06/20 *Physical Exam - Vital Signs Last Vital Signs Temp Pulse Resp BP Pulse Ox 99.3 F 86 16 122/76 100 01/06/20 18:18 01/06/20 18:18 01/06/20 18:18 01/06/20 18:18 01/06/20 19:43 <Cortez Gilbert - Last Filed: 01/06/20 20:26> - Vital Signs Last Vital Signs Temp Pulse Resp BP Pulse Ox 99.3 F 86 16 122/76 100 01/06/20 18:18 01/06/20 18:18 01/06/20 18:18 01/06/20 18:18 01/06/20 19:43 <Ruperto Garcia - Last Filed: 01/06/20 21:47> ED Treatment Course - RADIOLOGY Radiograph Interpretation: LS Spine MRI w/o Contrast performed at [facility] on 01 January 2020 at 08:19 Report obtained via [employer] Final Result Name: MARVIN ERNST Sex: M : 1955 Location: Admitting Physician: EMERGENCY SERVICE Requesting Physician: MORGAN ERWIN Exam: MRI LS SPINE C- 01/01/2020 09:25 CLINICAL HISTORY: Radiculopathy COMPARISON: Outside CT lumbar spine 01/01/2020 TECHNIQUE: Multiplanar, multisequence 1.5-Sumi MR imaging of the lumbar spine with T1 and T2 weighting without the use of intravenous contrast. FINDINGS: Five lumbar vertebrae are assumed for the purposes of this examination.. BONE AND BONE MARROW: There is no evidence of acute fracture or pathological bone marrow signal abnormality. Mild multilevel spondylosis with disc desiccation, disc space narrowing, and ventral hypertrophic spurring noted. Mild degenerative endplate edema along the anterior inferior T12 and L1 endplates. Subcentimeter L2 vertebral body hemangioma. ALIGNMENT: The spinal alignment is maintained. Trace grade 1 degenerative anterolisthesis of L5 on S1. INTERVERTEBRAL DISCS: Diffuse disc desiccation with mild intervertebral disc height loss at L3-L4, L4-L5, and L5-S1 posteriorly. SPINAL CORD AND EPIDURAL: The spinal cord and conus medullaris are normal in size and signal intensity. The conus medullaris lies at the T12-L1 level. EXTRASPINAL: There is no prevertebral soft tissue swelling. Right posterior paraspinal soft tissue edema from L3 extending to the sacrum suggestive of muscle strain and/or hematoma. The extraspinal soft tissues are unremarkable. LIGAMENTS: There is no evidence of ligamentous disruption of the anterior longitudinal ligament, posterior longitudinal ligament or ligamentum flavum. Evaluation of the individual disc space levels: T12-L1: No disc herniations. No spinal canal stenosis. No significant neural foraminal narrowing. L1-L2: Minimal disc bulge. No spinal canal or neural foraminal stenosis. L2-L3: Trace disc bulge without mass effect on the thecal sac. No spinal canal stenosis. No significant neural foraminal narrowing.. L3-L4: Minimal symmetric disc bulge without significant mass effect on the thecal sac. No spinal canal stenosis. Mild bilateral neural foraminal narrowing without impingement. L4-L5: Minimal symmetric disc bulge and mild facet/ligamentous hypertrophy resulting in mild degenerative spinal canal stenosis. Mild bilateral neural foraminal narrowing without impingement.. L5-S1: Trace grade 1 degenerative anterolisthesis with uncovering of the disc. Facet hypertrophy. No significant spinal canal stenosis. Mild bilateral neural foraminal narrowing without impingement. IMPRESSION: 1. Mild multilevel degenerative changes and facet arthropathy as described above. Mild degenerative spinal canal stenosis at L4-L5. Multilevel neural foraminal narrowing without impingement.. 2. Right posterior paraspinal soft tissue edema suggestive of muscle strain and/or hematoma. 3. Trace grade 1 degenerative anterolisthesis of L5 on S1. Resident Radiologist: Attending Radiologist: Irma Sosa MD Finalizing Radiologist: Irma Sosa MD Transcribed Date: 01/01/2020 09:27 Finalized Date: 01/01/2020 09:40 <BishopCortez - Last Filed: 01/06/20 20:26> Discharge - Additional Discharge Information Prescription Drug Monitoring Program (I-STOP) results: I-STOP reviewed and no issues identified <BishopCortez - Last Filed: 01/06/20 20:26> - Discharge Information Problems reviewed: Yes - Admission No <JoseRuperto Perkins - Last Filed: 01/06/20 21:47> - Discharge Information Clinical Impression/Diagnosis: Numbness and tingling of both legs - Follow up/Referral Referrals: Pablo Alonso MD [Primary Care Provider] - Tha Tsai MD [Staff Physician] - - Patient Discharge Instructions Patient Printed Discharge Instructions: DI for Numbness/tingling Additional Instructions: You came back to the emergency department because you felt weakness and numbness in your legs this afternoon. We discussed your case with the neurologist and decided together that the best option for you would be to go home tonight and visit Dr. Tsai in the office as an outpatient. Please call, or ask your facility to call, Dr. Tsai's office on Tuesday morning. Please return to the ED if you experience any worsening or severe symptoms. - Post Discharge Activity Work/Back to School Note: My Personal Safety Plan
--- NOTE | 2020-01-06 20:59 | PDOC ---
Attending Attestation - Resident Resident Name: Ruperto Garcia - ED Attending Attestation I have performed the following: I have examined & evaluated the patient, The case was reviewed & discussed with the resident, I agree w/resident's findings & plan - HPI HPI: 01/06/20 21:04 Pt returns with complaints of numbnes of his leags. Pt has a hx of CVA in the past and he has known disc disease in his lumbar spine. Pt had CT scan L spine here as well as MRI in [facility]. Pt has findings that account for his symptoms, but no emergent need for steroids or operative management. Pt is able to ambulate with assistance as per his usual. We can admit him today for inpatient neuro evaluation, or he can follow as an outpatient. - Physicial Exam PE: 01/06/20 21:08 Agree with resident exam. Pt has residual right lower weakness due to old CVA Pt has all same findings as earlier today when we saw him on our last shift. See my old note or resident's exam - Medical Decision Making 01/06/20 23:59 Pt is stable to go home 01/07/20 00:[address] Pt [address] follow with Dr[address] Tsai in the outpatient setting Discharge - Discharge Information Problems reviewed: Yes Clinical Impression/Diagnosis: Numbness and tingling of both legs - Follow up/Referral Referrals: Tha Tsai MD [Staff Physician] - Pablo Alonso MD [Primary Care Provider] - - Patient Discharge Instructions Patient Printed Discharge Instructions: DI for Numbness/tingling Additional Instructions: You came back to the emergency department because you felt weakness and numbness in your legs this afternoon. We discussed your case with the neurologist and decided together that the best option for you would be to go home tonight and visit Dr. Tsai in the office as an outpatient. Please call, or ask your facility to call, Dr. Tsai's office on Tuesday morning. Please return to the ED if you experience any worsening or severe symptoms. - Post Discharge Activity Work/Back to School Note: My Personal Safety Plan
== END 2020-01-06 22:48 | disposition home or self-care (01) ==
LOC: JER 18:07
DX: R20.2 Paresthesia of skin (principal)
CPT/HCPCS: 99283-25

== ENCOUNTER 2020-01-06 23:38 | Emergency (ER) | payer OTHER ==
[2020-01-07 00:03] VITALS: BP 147/100; PULSE 105; TEMP 99.4; BMI 27.4
[2020-01-07] MEDS ORDERED: AMITRIPTYLINE HCL 10 MG TABLET PO ONE (00:09)
[2020-01-07] MEDS ORDERED: busPIRone HCL 5 MG TABLET PO ONE (00:10)
--- NOTE | 2020-01-07 00:17 | PDOC ---
*Physical Exam - Vital Signs Last Vital Signs Temp Pulse Resp BP Pulse Ox 99.4 F 105 H 18 147/100 96 01/06/20 23:40 01/06/20 23:40 01/06/20 23:40 01/06/20 23:40 01/06/20 23:40 Medical Decision Making - Medical Decision Making 01/07/20 00:10 Pt was sent back to his assisted living facility earlier this evening, after evaluation in the ER. Pt is stable to return to his assisted living facility. However once he got there, he realized that he needs his night meds, so he returned here. Discharge - Discharge Information Problems reviewed: Yes Clinical Impression/Diagnosis: Medication administered Condition: Good Disposition: HOME - Admission No - Follow up/Referral Referrals: Tha Tsai MD [Staff Physician] - - Patient Discharge Instructions Patient Printed Discharge Instructions: Tips for Safely Using Medications, Do Your Medications Actually Work? - Post Discharge Activity
[2020-01-07] MEDS ORDERED: HALOPERIDOL 5 MG TABLET PO ONE (00:18)
[2020-01-07] MEDS ORDERED: INSULIN REGULAR HUMAN 100 UNITS/ML *VIAL SQ ONE (00:56)
[2020-01-07] MEDS ORDERED: INSULIN (LEVEMIR) 100 UNITS/ML UNITS SQ ONE ×2 (01:00→01:05)
== END 2020-01-07 02:10 | disposition home or self-care (01) ==
LOC: JER 23:38
DX: R07.9 Chest pain, unspecified (principal)
CPT/HCPCS: 82962; 99283-25

== ENCOUNTER 2020-01-09 09:40 | Emergency (ER) | payer OTHER ==
[2020-01-09 09:55] VITALS: BMI 31.4
[2020-01-09] MEDS ORDERED: ACETAMINOPHEN 325 MG TABLET (FP) PO ONE (11:14)
[2020-01-09] MEDS ORDERED: ACETAMINOPHEN 325 MG TABLET (FP) ONE (11:22)
[2020-01-09] MEDS ORDERED: SODIUM CHLORIDE 0.9% 500 ML INFUS.BAG IV ONE (13:52)
--- NOTE | 2020-01-09 14:00 | PDOC ---
Documentation entered by Millie Almonte SCRIBE, acting as scribe for Bertha Mejia MD. Bertha Mejia MD: This documentation has been prepared by the danielibeGage Ana, SCRIBE, under my direction and personally reviewed by me in its entirety. I confirm that the documentation accurately reflects all work, treatment, procedures, and medical decision making performed by me. History of Present Illness - General Chief Complaint: Pain Stated Complaint: LT LEG PAIN Time Seen by Provider: 01/09/20 10:03 History Source: Patient Exam Limitations: No Limitations - History of Present Illness Initial Comments: 01/09/20 10:07 Patient is a 64 year old male with a significant past medical history of congestive heart failure, hypertension, diabetes, GERD, HLD, Parkinson's, Gout, Depression, psychiatric issues, and CVA, who presents to the ED with left leg pain and is requesting to see Dr. Tsai. Patient stated his pain is "unbearable" and that he has had bruising in his left thigh x1 week. Denies any new trauma. Patient has multiple ED visits over the past 8-9 days. Patient also disclosed he has been hospitalized in and out x1week. Per staff member at [facility], patient was seen at [facility] where an epidural was given for pain and an MRI was done (after the epidural injection) discovered he has degenerative disc disease. Staff member also disclosed that patient has a "drug seeking" behavior and often requests opioid medication for his pain. He is being followed by his psychiatrist who recently increased his haldol dose. Allergies: NKDA Patient lives in assisted living. Past History - Medical History Allergies/Adverse Reactions: Allergies Allergy/AdvReac Type Severity Reaction Status Date / Time No Known Allergies Allergy Verified 01/09/20 09:55 Home Medications: Ambulatory Orders Acetaminophen 975 mg PO Q8H PRN 01/06/20 Allopurinol 300 mg PO DAILY 01/06/20 Amitriptyline HCl [Elavil -] 50 mg PO DAILY 01/06/20 Amlodipine Besylate 2.5 mg PO DAILY 01/06/20 Ascorbic Acid [Vitamin C] 500 mg PO DAILY 01/06/20 Aspirin [Aspirin EC] 81 mg PO DAILY 01/06/20 Buspirone HCl [Buspar -] 10 mg PO BID 01/06/20 Cholecalciferol (Vitamin D3) [Vitamin D3] 2,000 unit PO DAILY 01/06/20 Haloperidol [Haldol -] 5 mg PO BID 01/06/20 Hydrochlorothiazide [Hctz -] 25 mg PO DAILY #30 tablet 01/06/20 Insulin Glargine,Hum.rec.anlog [Lantus] 0 unit SQ BID 01/06/20 Insulin Lispro [Humalog] 0 unit SQ TID 01/06/20 Lamotrigine [Lamictal] 150 mg PO BID 01/06/20 Lidocaine 5% Patch [Lidoderm Patch -] 1 patch TP DAILY #7 patch 01/06/20 Losartan Potassium [Cozaar] 75 mg PO DAILY 01/06/20 Metformin HCl [Glucophage] 1,000 mg PO BID 01/06/20 Omeprazole Magnesium [Prilosec Otc] 40 mg PO DAILY 01/06/20 Oxycodone HCl/Acetaminophen [Percocet 10-325 mg Tablet] 1 each PO DAILY PRN 01/06/20 Pramipexole Di-HCl [Mirapex] 0.25 mg PO BID 01/06/20 Pramipexole Di-HCl [Mirapex] 0.5 mg PO HS 01/06/20 Semaglutide [Ozempic] 1 mg SQ WEEKLY 01/06/20 Sertraline HCl 75 mg PO DAILY 01/06/20 Vitamin B Complex 1 each PO DAILY 01/06/20 Atorvastatin Ca [Lipitor] 80 mg PO HS 01/09/20 Haloperidol [Haldol -] 5 mg PO BID 01/09/20 Cardiac Disorders: Yes (HF) CVA: Yes COPD: No Diabetes: Yes GI Disorders: (GERD) HTN: Yes Hypercholesterolemia: Yes Psychiatric Problems: Yes (depression, Schizoaffectivde, Bipolar. anxiety) - Psycho-Social/Smoking History Smoking History: Never smoked Have you smoked in the past 12 months: No Information on smoking cessation initiated: No - Substance Abuse Hx (Audit-C & DAST Scrn) How often the patient has a drink containing alcohol: Never Score: In Men: 4 or > Positive; In Women: 3 or > Positive: 0 Screen Result (Pos requires Nsg. Audit-10AR): Negative In the last yr the pt used illegal drug/Rx for NonMed reason: No Score: Yes response is considered Positive: 0 Screen Result (Positive result requires Nsg. DAST-10): Negative Review of Systems - Review of Systems Able to Perform ROS?: Yes Comments:: 01/09/20 10:10 GENERAL/CONSTITUTIONAL: No fever or chills. No weakness. HEAD, EYES, EARS, NOSE AND THROAT: No change in vision. No ear pain or discharge. No sore throat. CARDIOVASCULAR: No chest pain or shortness of breath. RESPIRATORY: No cough, wheezing, or hemoptysis. GASTROINTESTINAL: No nausea, vomiting, diarrhea or constipation. GENITOURINARY: No dysuria, frequency, or change in urination. MUSCULOSKELETAL: +Left leg pain. No neck or back pain. SKIN: No rash NEUROLOGIC: No headache, vertigo, loss of consciousness, or change in strength/sensation. ENDOCRINE: No increased thirst. No abnormal weight change. HEMATOLOGIC/LYMPHATIC: No anemia, easy bleeding, or history of blood clots. ALLERGIC/IMMUNOLOGIC: No hives or skin allergy. *Physical Exam - Vital Signs Last Vital Signs Temp Pulse Resp BP Pulse Ox 99.6 F 118 H 19 141/85 96 01/09/20 09:53 01/09/20 09:53 01/09/20 09:53 01/09/20 09:53 01/09/20 09:53 - Physical Exam 01/09/20 10:10 GENERAL: Awake, alert, and fully oriented, in no acute distress HEAD: No signs of trauma EYES: PERRLA, EOMI, sclera anicteric, conjunctiva clear ENT: Auricles normal inspection, hearing grossly normal, nares patent, oropharynx clear without exudates. Moist mucosa NECK: Normal ROM, supple, no lymphadenopathy, JVD, or masses LUNGS: Breath sounds equal, clear to auscultation bilaterally. No wheezes, and no crackles HEART: Regular rate and rhythm, normal S1 and S2 ABDOMEN: Soft, nontender, normoactive bowel sounds. No guarding, no rebound. No masses EXTREMITIES: Normal range of motion, no edema. +old bruise from L buttocks extending down to just below L knee without tenderness to palpation, no increased warmth, no fluctuance, no bony tenderness, No clubbing or cyanosis. NEUROLOGICAL: awake, alert, speech fluent, face symmetric, no focal deficits Heart Score/ECG Review - ECG Impressions Comment:: 01/09/20 13:54 sinus tach, no ischemic changes Medical Decision Making - Medical Decision Making 01/09/20 13:54 64 yo M here with with persistent LE pain, no new trauma, FROM, multiple ED visits with negative workups, doubt fracture or DVT. Exam only notable for tachycardia and FS of 51 (pt reports receiving insulin this morning but did not eat so was given food in ED), tachycardia improved from 118 to 110 after tylenol for pain and given food. No infectious complaints to suggest infectious etiology. Patient also with mild tachycardia (104) on previous visit. Patient does not wish to stay for basic blood work or IVF (reports has had decreased PO intake 2/2 pain in leg). Patient is well appearing with multiple ED visits for pain, no SOB or chest pain and no clinical signs concerning for DVT and low suspicion for PE as patient states he is ambulatory around his room. Pt. states he does not want to come to the ED but wanted to see his neurologist and came to the ED expecting to be transferred to see his neurologist. Will d/c with return precautions, patient states he will see his neurologist tomorrow. This clinical encounter is taking place during a federal and state health care emergency attributable to the novel Garcia Virus pandemic. The [place] of the Department of Health and Human Services has declared, pursuant to the Public Health Service Act 319F-3 (42 U.S.C. 247d-6d), that a covered persons activities related to medical countermeasures against COVID-19 will be immune from liability under Federal and State law. Discharge - Discharge Information Problems reviewed: Yes Clinical Impression/Diagnosis: Chronic pain Qualifiers: Chronic pain type: other chronic pain Qualified Code(s): G89.29 - Other chronic pain Condition: Stable Disposition: HOME - Admission No - Follow up/Referral Referrals: Pablo Alonso MD [Primary Care Provider] - - Patient Discharge Instructions Patient Printed Discharge Instructions: DI for Prescription Opioid Use Additional Instructions: You should follow up with your PMD. Return to the ED for new or worsening symptoms. - Post Discharge Activity
[2020-01-09 16:41] VITALS: BP 142/87; PULSE 97; TEMP 98.9
--- NOTE | 2020-01-14 10:58 | EKG ---
Test Reason : Blood Pressure : / mmHG Vent. Rate : 117 BPM Atrial Rate : 117 BPM P-R Int : 146 ms QRS Dur : 078 ms QT Int : 318 ms P-R-T Axes : -13 -19 021 degrees QTc Int : 443 ms SINUS TACHYCARDIA OTHERWISE NORMAL ECG WHEN COMPARED WITH ECG OF 06-JAN-2020 10:54, NO SIGNIFICANT CHANGE WAS FOUND Confirmed by Milind Telles ([id number]) on 01/14/2020 10:58:07 AM Referred By: Confirmed By:Milind Telles
== END 2020-01-09 16:47 | disposition home or self-care (01) ==
LOC: JER 09:40
DX: M79.605 Pain in left leg (principal); G89.29 Other chronic pain
CPT/HCPCS: 82962; 93005; 93010; 99284-25

== ENCOUNTER 2020-09-06 10:26 | Inpatient (IN) | payer OTHER ==
[2020-09-06] MEDS ORDERED: LACTATED RINGERS SOLUTION 1,000 ML/1,000 ML INFUS.BAG IV STA ×2 (11:07→12:12)
[2020-09-06 11:14] VITALS: BMI 25.8
[2020-09-06 11:33] LABS: INR 1.14 (0.83-1.09); PROTHROMBIN TIME (PATIENT) 13.7 SEC (9.7-13.0)
[2020-09-06 11:35] LABS: ACTIVATED PTT 29.3 SECONDS (25.2-36.5)
[2020-09-06 11:45] LABS: BASO % 0.3 % (0-2.0); EOS % 0.8 % (0-4.5); HEMATOCRIT 39.5 % (35.4-49); HEMOGLOBIN 13.8 GM/dL (11.7-16.9); LYMPH % 16.3 % (8-40); MCHC 34.9 g/dl (32.0-35.9); MEAN CELL VOLUME 86.1 fl (80-96); NEUT % 74.6 % (42.8-82.8); PLATELET COUNT 157 K/MM3 (134-434); RBC 4.59 M/mm3 (4.00-5.60); WHITE BLOOD COUNT 7.8 K/mm3 (4.0-10.0)
[2020-09-06 12:00] LABS: LACTIC ACID 2.4 mmol/L (0.4-2.0)
[2020-09-06 12:01] LABS: POTASSIUM 3.7 mmol/L (3.5-5.1)
[2020-09-06 12:03] LABS: ALBUMIN 3.5 g/dl (3.4-5.0); CALCIUM 9.7 mg/dL (8.5-10.1)
[2020-09-06 12:04] LABS: BLOOD UREA NITROGEN 9.8 mg/dL (7-18)
[2020-09-06 12:08] LABS: BILIRUBIN,TOTAL 1.6 mg/dL (0.2-1); TOT PROT 6.1 g/dl (6.4-8.2)
[2020-09-06 12:56] LABS: VENOUS BASE EXCESS -1.7 mmol/L (-2-2); VENOUS PCO2 44.8 mmHg (38-52); VENOUS PH 7.349 (7.310-7.410)
[2020-09-06 14:17] LABS: URINE APPEARANCE CLEAR; URINE BILIRUBIN NEGATIVE (NEGATIVE); URINE COLOR YELLOW; URINE GLUCOSE (UA) NEGATIVE (NEGATIVE); URINE KETONE NEGATIVE (NEGATIVE); URINE LEUK ESTERASE NEGATIVE (NEGATIVE); URINE NITRITE NEGATIVE (NEGATIVE); URINE PROTEIN NEGATIVE (NEGATIVE)
[2020-09-06] MEDS ORDERED: SODIUM CHLORIDE 1,000 ML IV STA (18:36)
[2020-09-06] MEDS ORDERED: SODIUM CHLORIDE 1,000 ML IV SCH ×2 (18:45→22:50)
[2020-09-07] MEDS: LORazepam 1 MG TABLET PO SCH ×4 (01:23→22:27)
[2020-09-07] MEDS: PRAMIPEXOLE DIHYDROCHLORIDE 0.25 MG TABLET PO SCH ×3 (01:24→22:27)
[2020-09-07] MEDS: DIVALPROEX SODIUM 250 MG TABLET E.C. PO SCH (07:12)
[2020-09-07] MEDS: ALLOPURINOL 300 MG TABLET (FP) PO SCH (09:00)
[2020-09-07] MEDS: CHOLECALCIFEROL (VIT D3) 1,000 UNIT (25 MCG) TABLET PO SCH (09:00)
[2020-09-07] MEDS: ASPIRIN COATED 81 MG TABLET.EC PO SCH (09:00)
[2020-09-07] MEDS: ENOXAPARIN NA (PORCINE) 40 MG/0.4 ML DISP.SYRIN SQ SCH (09:01)
[2020-09-07] MEDS ORDERED: ASCORBIC ACID 500 MG TABLET (FP) PO SCH (10:00)
[2020-09-07] MEDS ORDERED: VITAMIN B COMPLEX W/C COMBO TABLET (FP) PO SCH (10:00)
[2020-09-07 10:44] LABS: BASO % 0.4 % (0-2.0); EOS % 1.8 % (0-4.5); HEMATOCRIT 36.9 % (35.4-49); HEMOGLOBIN 12.9 GM/dL (11.7-16.9); LYMPH % 28.9 % (8-40); MCH 30.2 pg (25.7-33.7); MCHC 34.8 g/dl (32.0-35.9); MEAN CELL VOLUME 86.7 fl (80-96); MEAN PLT VOLUME 7.7 fl (7.5-11.1); MONO % 9.9 % (3.8-10.2); PLATELET COUNT 156 K/MM3 (134-434); RBC 4.26 M/mm3 (4.00-5.60); RDW 15.4 % (11.9-15.9); WHITE BLOOD COUNT 4.7 K/mm3 (4.0-10.0)
[2020-09-07 11:02] LABS: POTASSIUM 3.3 mmol/L (3.5-5.1)
[2020-09-07 11:03] LABS: CALCIUM 9.2 mg/dL (8.5-10.1)
[2020-09-07 11:04] LABS: ALBUMIN 3.3 g/dl (3.4-5.0); BLOOD UREA NITROGEN 6.6 mg/dL (7-18); MAGNESIUM 1.7 mg/dL (1.8-2.4)
[2020-09-07 11:07] LABS: CREATININE 0.6 mg/dL (0.55-1.3); PHOSPHOROUS 3.1 mg/dL (2.5-4.9)
[2020-09-07 11:09] LABS: TOT PROT 5.9 g/dl (6.4-8.2)
[2020-09-07] MEDS ORDERED: POTASSIUM CHLORIDE TABS 20 MEQ TABLET.ER (FP) PO ONE (12:51)
[2020-09-07] MEDS ORDERED: MAGNESIUM SULF 50% (8.12 MEQ/2 ML-1 GM VIAL) IVPB ONE ×2 (16:00→16:01)
[2020-09-07] MEDS ORDERED: DIVALPROEX SODIUM 500 MG TABLET E.C. PO SCH (20:00)
[2020-09-07] MEDS ORDERED: PT OWN MED DRAWER 7, Y5N ONE (20:37)
[2020-09-07] MEDS ORDERED: PATIENT'S OWN MEDICATION (NON-FORMULARY) (Pimavanserin Tartrate [Nuplazid] 34 MG Capsule) PO SCH (22:00)
[2020-09-07] MEDS ORDERED: ATORVASTATIN CA 80 MG TABLET (FP) PO SCH (22:00)
[2020-09-07] MEDS ORDERED: LATANOPROST 0.005% OPHTH SOLN 2.5ML BOTTLE OU SCH (22:00)
[2020-09-08] MEDS: LORazepam 1 MG TABLET PO SCH ×3 (06:09→14:36)
[2020-09-08] MEDS: DIVALPROEX SODIUM 250 MG TABLET E.C. PO SCH ×2 (06:10→06:54)
[2020-09-08] MEDS ORDERED: PT OWN MED DRAWER 7, Y5N ONE ×2 (07:06→09:16)
[2020-09-08 08:13] LABS: BASO % 0.4 % (0-2.0); HEMATOCRIT 34.1 % (35.4-49); LYMPH % 32.8 % (8-40); MCH 30.3 pg (25.7-33.7); MCHC 35.2 g/dl (32.0-35.9); MEAN PLT VOLUME 8.1 fl (7.5-11.1); NEUT % 52.8 % (42.8-82.8); PLATELET COUNT 125 K/MM3 (134-434); RBC 3.97 M/mm3 (4.00-5.60); RDW 15.1 % (11.9-15.9); WHITE BLOOD COUNT 3.4 K/mm3 (4.0-10.0)
[2020-09-08 08:31] LABS: POTASSIUM 3.5 mmol/L (3.5-5.1)
[2020-09-08 08:36] LABS: BLOOD UREA NITROGEN 3.5 mg/dL (7-18); CALCIUM 8.7 mg/dL (8.5-10.1)
[2020-09-08 08:37] LABS: MAGNESIUM 1.6 mg/dL (1.8-2.4)
[2020-09-08 08:39] LABS: PHOSPHOROUS 2.9 mg/dL (2.5-4.9)
[2020-09-08 08:40] LABS: CREATININE 0.5 mg/dL (0.55-1.3)
[2020-09-08 08:41] LABS: TOT PROT 5.4 g/dl (6.4-8.2)
[2020-09-08] MEDS: PRAMIPEXOLE DIHYDROCHLORIDE 0.25 MG TABLET PO SCH (10:14)
[2020-09-08] MEDS: ALLOPURINOL 300 MG TABLET (FP) PO SCH (10:14)
[2020-09-08] MEDS: ASPIRIN COATED 81 MG TABLET.EC PO SCH (10:15)
[2020-09-08] MEDS: CHOLECALCIFEROL (VIT D3) 1,000 UNIT (25 MCG) TABLET PO SCH (10:15)
[2020-09-08] MEDS: ENOXAPARIN NA (PORCINE) 40 MG/0.4 ML DISP.SYRIN SQ SCH (10:15)
[2020-09-08 14:53] VITALS: BP 104/76; PULSE 84; TEMP 97.8
== END 2020-09-08 16:33 | disposition home or self-care (01) | DRG 316 ==
LOC: JER 10:26 → JERBED 16:00 → J4W 21:52
PROVIDERS: ADMIT Family Medicine; ATTEND Student in an Organized Health Care Education/Training Program
DX: I95.9 Hypotension, unspecified (principal); G43.909 Migraine, unspecified, not intractable, without status migrainosus; E11.9 Type 2 diabetes mellitus without complications; F31.9 Bipolar disorder, unspecified; G24.01 Drug induced subacute dyskinesia; E86.0 Dehydration; R62.7 Adult failure to thrive; Z68.25 Body mass index [BMI] 25.0-25.9, adult; E78.5 Hyperlipidemia, unspecified; I11.0 Hypertensive heart disease with heart failure; I50.9 Heart failure, unspecified; G20 Parkinson's disease; K21.9 Gastro-esophageal reflux disease without esophagitis; F25.9 Schizoaffective disorder, unspecified; M10.9 Gout, unspecified; F41.8 Other specified anxiety disorders; E87.6 Hypokalemia; E83.42 Hypomagnesemia; Z86.73 Personal history of transient ischemic attack (TIA), and cerebral infarction without residual deficits
CPT/HCPCS: 36415; 70450-TC; 71045-TC-FY; 71275-TC; 74177-TC; 80053; 80164; 81003; 82803; 82962; 83036; 83605; 83735; 84100; 84443; 84484; 85025; 85610; 85730; 87040; 87086; 87804; 93005; 93010; 97116-GP; 97161-GP; 99285-25; C9803; Q9967; U0003; U0005

== ENCOUNTER 2020-09-21 06:11 | Inpatient (IN) | payer OTHER ==
[2020-09-21] MEDS ORDERED: ACETAMINOPHEN 325 MG TABLET (FP) PO ONE (07:27)
[2020-09-21] MEDS ORDERED: ACETAMINOPHEN 325 MG TABLET (FP) ONE (07:38)
[2020-09-21] MEDS ORDERED: LIDOCAINE 5% TOPICAL PATCH TP ONE (07:47)
[2020-09-21] MEDS ORDERED: LIDOCAINE 5% TOPICAL PATCH ONE (07:55)
[2020-09-21 08:01] LABS: BASO % 0.4 % (0-2.0); EOS % 2.4 % (0-4.5); HEMATOCRIT 37.9 % (35.4-49); HEMOGLOBIN 13.1 GM/dL (11.7-16.9); LYMPH % 25.4 % (8-40); MCH 30.1 pg (25.7-33.7); MCHC 34.6 g/dl (32.0-35.9); MEAN CELL VOLUME 87.2 fl (80-96); MEAN PLT VOLUME 7.5 fl (7.5-11.1); MONO % 7.6 % (3.8-10.2); NEUT % 64.2 % (42.8-82.8); PLATELET COUNT 137 K/MM3 (134-434); RBC 4.35 M/mm3 (4.00-5.60); RDW 15.8 % (11.9-15.9); WHITE BLOOD COUNT 4.3 K/mm3 (4.0-10.0)
[2020-09-21 08:24] LABS: CALCIUM 9.1 mg/dL (8.5-10.1)
[2020-09-21 08:25] LABS: ALBUMIN 3.3 g/dl (3.4-5.0); BLOOD UREA NITROGEN 4.6 mg/dL (7-18)
[2020-09-21 08:28] LABS: CREATININE 0.5 mg/dL (0.55-1.3)
[2020-09-21 08:29] LABS: BILIRUBIN,TOTAL 0.9 mg/dL (0.2-1); TOT PROT 5.9 g/dl (6.4-8.2)
[2020-09-21 08:40] LABS: MAGNESIUM 1.5 mg/dL (1.8-2.4)
[2020-09-21] MEDS ORDERED: MAGNESIUM OXIDE 400 MG TABLET (FP) PO ONE (09:04)
[2020-09-21] MEDS ORDERED: POTASSIUM CHLORIDE TABS 20 MEQ TABLET.ER (FP) PO ONE ×2 (09:04→10:56)
[2020-09-21 09:16] LABS: PH,URINE 7.5 (5.0-8.0); URINE APPEARANCE CLEAR; URINE BILIRUBIN NEGATIVE (NEGATIVE); URINE COLOR YELLOW; URINE GLUCOSE (UA) NEGATIVE (NEGATIVE); URINE KETONE NEGATIVE (NEGATIVE); URINE LEUK ESTERASE NEGATIVE (NEGATIVE); URINE NITRITE NEGATIVE (NEGATIVE); URINE PROTEIN NEGATIVE (NEGATIVE)
[2020-09-21] MEDS ORDERED: MAGNESIUM OXIDE 400 MG TABLET (FP) ONE (10:57)
[2020-09-21] MEDS ORDERED: ACETAMINOPHEN 325 MG TABLET (FP) PO PRN (12:10)
[2020-09-21 14:40] VITALS: BMI 29.5
[2020-09-21] MEDS: LORazepam 1 MG TABLET PO SCH ×2 (14:58→21:03)
[2020-09-21] MEDS ORDERED: INSULIN (NOVOLOG) ASPART 100 UNITS/ML 10ML VIAL ONE ×2 (17:10→17:30)
[2020-09-21] MEDS: INSULIN SLIDING SCALE (NOVOLOG) 1 VIAL SQ SCH ×2 (17:21→21:03)
[2020-09-21] MEDS ORDERED: PT OWN MED DRAWER 7, Y5N ONE (20:10)
[2020-09-21] MEDS: DIVALPROEX SODIUM 500 MG TABLET E.C. PO SCH (21:03)
[2020-09-21] MEDS: ATORVASTATIN CA 80 MG TABLET (FP) PO SCH (21:03)
[2020-09-21] MEDS: PRAMIPEXOLE DIHYDROCHLORIDE 0.25 MG TABLET PO SCH (21:03)
[2020-09-21] MEDS ORDERED: PATIENT'S OWN MEDICATION (NON-FORMULARY) (Pimavanserin Tartrate [Nuplazid] 34 MG Capsule) PO SCH (22:00)
[2020-09-21] MEDS ORDERED: LIDOCAINE PATCH REMOVAL MC ONE (22:00)
[2020-09-22] MEDS: LORazepam 1 MG TABLET PO SCH ×2 (06:53→21:14)
[2020-09-22] MEDS: INSULIN SLIDING SCALE (NOVOLOG) 1 VIAL SQ SCH ×4 (06:54→21:44)
[2020-09-22] MEDS ORDERED: oxyCODONE HCL 5 MG TABLET PO ONE (07:15)
[2020-09-22] MEDS ORDERED: MAGNESIUM SULF 50% (8.12 MEQ/2 ML-1 GM VIAL) IVPB ONE (08:20)
[2020-09-22 08:36] LABS: HEMATOCRIT 36.9 % (35.4-49); HEMOGLOBIN 12.9 GM/dL (11.7-16.9); MCH 30.3 pg (25.7-33.7); MCHC 35.1 g/dl (32.0-35.9); MEAN CELL VOLUME 86.3 fl (80-96); MEAN PLT VOLUME 7.7 fl (7.5-11.1); PLATELET COUNT 159 K/MM3 (134-434); RBC 4.27 M/mm3 (4.00-5.60); RDW 15.6 % (11.9-15.9); WHITE BLOOD COUNT 4.2 K/mm3 (4.0-10.0)
[2020-09-22 09:07] LABS: CALCIUM 8.9 mg/dL (8.5-10.1)
[2020-09-22 09:11] LABS: CREATININE 0.7 mg/dL (0.55-1.3)
[2020-09-22] MEDS ORDERED: PT OWN MED DRAWER 7, Y5N ONE ×3 (09:21→19:40)
[2020-09-22] MEDS: ENOXAPARIN NA (PORCINE) 40 MG/0.4 ML DISP.SYRIN SQ SCH (09:30)
[2020-09-22] MEDS: CHOLECALCIFEROL (VIT D3) 1,000 UNIT (25 MCG) TABLET PO SCH (09:31)
[2020-09-22] MEDS: ASPIRIN COATED 81 MG TABLET.EC PO SCH (09:32)
[2020-09-22] MEDS: ALLOPURINOL 300 MG TABLET (FP) PO SCH (09:32)
[2020-09-22] MEDS: ASCORBIC ACID 500 MG TABLET (FP) PO SCH (09:32)
[2020-09-22] MEDS: PANTOPRAZOLE 40 MG TABLET PO SCH (09:32)
[2020-09-22] MEDS: DIVALPROEX SODIUM 250 MG TABLET E.C. PO SCH (09:33)
[2020-09-22] MEDS: amLODIPine BESYLATE 2.5 MG TABLET (FP) PO SCH (09:33)
[2020-09-22] MEDS: VITAMIN B COMPLEX W/C COMBO TABLET (FP) PO SCH (09:34)
[2020-09-22] MEDS: PRAMIPEXOLE DIHYDROCHLORIDE 0.25 MG TABLET PO SCH ×2 (09:34→21:15)
[2020-09-22] MEDS ORDERED: LATANOPROST 0.005% OPHTH SOLN 2.5ML BOTTLE OU SCH (10:00)
[2020-09-22 10:47] LABS: MAGNESIUM 1.7 mg/dL (1.8-2.4)
[2020-09-22] MEDS ORDERED: ONDANSETRON 4 MG/2 ML VIAL IVPUSH PRN (12:10)
[2020-09-22] MEDS ORDERED: ACETAMINOPHEN 325 MG TABLET (FP) PO PRN (12:13)
[2020-09-22] MEDS ORDERED: MAGNESIUM OXIDE 400 MG TABLET (FP) PO ONE (12:17)
[2020-09-22] MEDS: oxyCODONE HCL 5 MG TABLET PO PRN (12:45)
[2020-09-22] MEDS: IBUPROFEN 400 MG TABLET (FP) PO PRN (19:46)
[2020-09-22] MEDS: ATORVASTATIN CA 80 MG TABLET (FP) PO SCH (21:15)
[2020-09-22] MEDS: DIVALPROEX SODIUM 500 MG TABLET E.C. PO SCH (21:15)
[2020-09-22] MEDS ORDERED: INSULIN (NOVOLOG) ASPART 100 UNITS/ML 10ML VIAL ONE (21:23)
[2020-09-22] MEDS: LATANOPROST 0.005% OPHTH SOLN 2.5ML BOTTLE OU SCH (21:49)
[2020-09-23] MEDS: oxyCODONE HCL 5 MG TABLET PO PRN ×2 (00:16→13:57)
[2020-09-23] MEDS: INSULIN SLIDING SCALE (NOVOLOG) 1 VIAL SQ SCH ×4 (06:59→21:18)
[2020-09-23 08:25] LABS: HEMATOCRIT 36.1 % (35.4-49); HEMOGLOBIN 12.6 GM/dL (11.7-16.9); MCH 30.4 pg (25.7-33.7); MCHC 34.8 g/dl (32.0-35.9); MEAN CELL VOLUME 87.4 fl (80-96); MEAN PLT VOLUME 7.9 fl (7.5-11.1); PLATELET COUNT 155 K/MM3 (134-434); RBC 4.13 M/mm3 (4.00-5.60); RDW 15.3 % (11.9-15.9); WHITE BLOOD COUNT 3.5 K/mm3 (4.0-10.0)
[2020-09-23 08:36] LABS: CALCIUM 8.9 mg/dL (8.5-10.1)
[2020-09-23 08:37] LABS: BLOOD UREA NITROGEN 5.2 mg/dL (7-18); MAGNESIUM 1.8 mg/dL (1.8-2.4)
[2020-09-23 08:40] LABS: CREATININE 0.5 mg/dL (0.55-1.3); PHOSPHOROUS 3.5 mg/dL (2.5-4.9)
[2020-09-23] MEDS: IBUPROFEN 400 MG TABLET (FP) PO PRN (08:51)
[2020-09-23] MEDS ORDERED: PT OWN MED DRAWER 7, Y5N ONE ×3 (09:31→20:03)
[2020-09-23] MEDS: ENOXAPARIN NA (PORCINE) 40 MG/0.4 ML DISP.SYRIN SQ SCH (09:40)
[2020-09-23] MEDS: LORazepam 1 MG TABLET PO SCH ×2 (09:40→21:16)
[2020-09-23] MEDS: PANTOPRAZOLE 40 MG TABLET PO SCH (09:41)
[2020-09-23] MEDS: CHOLECALCIFEROL (VIT D3) 1,000 UNIT (25 MCG) TABLET PO SCH (09:41)
[2020-09-23] MEDS: ALLOPURINOL 300 MG TABLET (FP) PO SCH (09:41)
[2020-09-23] MEDS: LOSARTAN POTASSIUM 25 MG TABLET PO SCH (09:41)
[2020-09-23] MEDS: ASCORBIC ACID 500 MG TABLET (FP) PO SCH (09:41)
[2020-09-23] MEDS: ASPIRIN COATED 81 MG TABLET.EC PO SCH (09:42)
[2020-09-23] MEDS: amLODIPine BESYLATE 2.5 MG TABLET (FP) PO SCH (09:42)
[2020-09-23] MEDS: DIVALPROEX SODIUM 250 MG TABLET E.C. PO SCH (09:43)
[2020-09-23] MEDS: PRAMIPEXOLE DIHYDROCHLORIDE 0.25 MG TABLET PO SCH ×2 (09:43→21:16)
[2020-09-23] MEDS: VITAMIN B COMPLEX W/C COMBO TABLET (FP) PO SCH (09:44)
[2020-09-23] MEDS ORDERED: HYDROCHLOROTHIAZIDE 25 MG TABLET (FP) PO SCH (10:00)
[2020-09-23] MEDS: ATORVASTATIN CA 80 MG TABLET (FP) PO SCH (21:16)
[2020-09-23] MEDS: DIVALPROEX SODIUM 500 MG TABLET E.C. PO SCH (21:16)
[2020-09-23] MEDS: LATANOPROST 0.005% OPHTH SOLN 2.5ML BOTTLE OU SCH (21:20)
[2020-09-24] MEDS: oxyCODONE HCL 5 MG TABLET PO PRN ×2 (01:24→13:32)
[2020-09-24] MEDS: INSULIN SLIDING SCALE (NOVOLOG) 1 VIAL SQ SCH ×3 (06:26→16:26)
[2020-09-24 07:28] VITALS: PULSE 97
[2020-09-24 08:35] LABS: MCHC 34.2 g/dl (32.0-35.9); MEAN CELL VOLUME 87.7 fl (80-96); MEAN PLT VOLUME 8.1 fl (7.5-11.1); PLATELET COUNT 162 K/MM3 (134-434); RBC 4.34 M/mm3 (4.00-5.60); RDW 15.5 % (11.9-15.9); WHITE BLOOD COUNT 4.3 K/mm3 (4.0-10.0)
[2020-09-24 09:07] LABS: BLOOD UREA NITROGEN 4.7 mg/dL (7-18)
[2020-09-24] MEDS ORDERED: PT OWN MED DRAWER 7, Y5N ONE (09:07)
[2020-09-24 09:08] LABS: CALCIUM 9.6 mg/dL (8.5-10.1); MAGNESIUM 1.6 mg/dL (1.8-2.4)
[2020-09-24 09:10] LABS: CREATININE 0.6 mg/dL (0.55-1.3)
[2020-09-24 09:11] LABS: PHOSPHOROUS 3.1 mg/dL (2.5-4.9)
[2020-09-24] MEDS: VITAMIN B COMPLEX W/C COMBO TABLET (FP) PO SCH (10:18)
[2020-09-24] MEDS: PRAMIPEXOLE DIHYDROCHLORIDE 0.25 MG TABLET PO SCH (10:18)
[2020-09-24] MEDS: LOSARTAN POTASSIUM 25 MG TABLET PO SCH (10:18)
[2020-09-24] MEDS: DIVALPROEX SODIUM 250 MG TABLET E.C. PO SCH (10:18)
[2020-09-24] MEDS: ENOXAPARIN NA (PORCINE) 40 MG/0.4 ML DISP.SYRIN SQ SCH (10:18)
[2020-09-24] MEDS: CHOLECALCIFEROL (VIT D3) 1,000 UNIT (25 MCG) TABLET PO SCH (10:19)
[2020-09-24] MEDS: ALLOPURINOL 300 MG TABLET (FP) PO SCH (10:19)
[2020-09-24] MEDS: ASCORBIC ACID 500 MG TABLET (FP) PO SCH (10:19)
[2020-09-24] MEDS: ASPIRIN COATED 81 MG TABLET.EC PO SCH (10:19)
[2020-09-24] MEDS: PANTOPRAZOLE 40 MG TABLET PO SCH (10:19)
[2020-09-24] MEDS: amLODIPine BESYLATE 2.5 MG TABLET (FP) PO SCH (10:19)
[2020-09-24] MEDS: LORazepam 1 MG TABLET PO SCH (10:19)
[2020-09-24] MEDS ORDERED: MAGNESIUM OXIDE 400 MG TABLET (FP) PO ONE (10:36)
[2020-09-24] MEDS ORDERED: LIDOCAINE 5% TOPICAL PATCH TP SCH (10:45)
[2020-09-24 13:18] VITALS: BP 120/63; TEMP 97.7
[2020-09-24] MEDS ORDERED: LIDOCAINE PATCH REMOVAL MC SCH (22:00)
== END 2020-09-24 18:00 | DRG 552 ==
LOC: JER 06:11 → JERBED 10:25 → J8W 13:54
PROVIDERS: ADMIT Internal Medicine; ATTEND Internal Medicine
DX: M54.9 Dorsalgia, unspecified (principal); M10.9 Gout, unspecified; I11.0 Hypertensive heart disease with heart failure; I50.9 Heart failure, unspecified; E11.9 Type 2 diabetes mellitus without complications; E78.5 Hyperlipidemia, unspecified; Z86.73 Personal history of transient ischemic attack (TIA), and cerebral infarction without residual deficits; G20 Parkinson's disease; F02.80 Dementia in other diseases classified elsewhere, unspecified severity, without behavioral disturbance, psychotic disturbance, mood disturbance, and anxiety; E87.6 Hypokalemia; E83.42 Hypomagnesemia; F25.9 Schizoaffective disorder, unspecified; G24.01 Drug induced subacute dyskinesia
CPT/HCPCS: 36415; 71045-TC-FY; 72100-TC-FY; 72131-TC; 72170-TC-FY; 80048; 80053; 81003; 82962; 83735; 84100; 84443; 85025; 85027; 87086; 93005; 93010; 97116-GP; 97161-GP; 99285-25; C9803; U0003; U0005

== ENCOUNTER 2020-10-10 17:19 | Emergency (ER) | payer OTHER ==
[2020-10-10 17:36] VITALS: BP 121/89; PULSE 79; TEMP 98; BMI 25.8
[2020-10-10 19:01] LABS: BASO % 0.4 % (0-2.0); EOS % 1.5 % (0-4.5); HEMATOCRIT 36.1 % (35.4-49); HEMOGLOBIN 12.5 GM/dL (11.7-16.9); LYMPH % 28.3 % (8-40); MCH 30.1 pg (25.7-33.7); MCHC 34.6 g/dl (32.0-35.9); MEAN CELL VOLUME 87.2 fl (80-96); MEAN PLT VOLUME 8.5 fl (7.5-11.1); MONO % 9.7 % (3.8-10.2); NEUT % 60.1 % (42.8-82.8); PLATELET COUNT 164 K/MM3 (134-434); RBC 4.14 M/mm3 (4.00-5.60); RDW 15.8 % (11.9-15.9); WHITE BLOOD COUNT 4.7 K/mm3 (4.0-10.0)
[2020-10-10 19:10] LABS: CALCIUM 8.9 mg/dL (8.5-10.1)
[2020-10-10 19:11] LABS: ALBUMIN 3.5 g/dl (3.4-5.0); BLOOD UREA NITROGEN 5.2 mg/dL (7-18)
[2020-10-10 19:14] LABS: CREATININE 0.7 mg/dL (0.55-1.3)
[2020-10-10 19:15] LABS: BILIRUBIN,TOTAL 0.9 mg/dL (0.2-1); TOT PROT 6.1 g/dl (6.4-8.2)
[2020-10-10] MEDS ORDERED: clonazePAM 0.5 MG TABLET ONE (21:06)
[2020-10-10] MEDS ORDERED: clonazePAM 0.5 MG TABLET PO SCH (22:00)
== END 2020-10-11 03:05 | disposition home or self-care (01) ==
LOC: JER 17:19
DX: R20.2 Paresthesia of skin (principal); R42 Dizziness and giddiness; G20 Parkinson's disease
CPT/HCPCS: 36415; 70450-TC; 80053; 80061; 82550; 83721; 84484; 85025; 93005; 93010; 99285-25; C9803; U0003; U0005

== ENCOUNTER 2020-12-23 03:14 | Emergency (ER) | payer OTHER ==
[2020-12-23 03:36] VITALS: TEMP 96.9; BMI 29.0
[2020-12-23] MEDS ORDERED: ACETAMINOPHEN 325 MG TABLET (FP) PO ONE (04:52)
[2020-12-23] MEDS ORDERED: LIDOCAINE 5% TOPICAL PATCH TP ONE (04:52)
[2020-12-23] MEDS ORDERED: LIDOCAINE 5% TOPICAL PATCH ONE (04:59)
[2020-12-23] MEDS ORDERED: ACETAMINOPHEN 325 MG TABLET (FP) ONE (04:59)
[2020-12-23] MEDS ORDERED: KETOROLAC TROMETHAMINE 15 MG/ML VIAL IM ONE (05:16)
[2020-12-23] MEDS ORDERED: KETOROLAC TROMETHAMINE 15 MG/ML VIAL ONE (05:17)
[2020-12-23 06:09] VITALS: BP 121/52; PULSE 94
[2020-12-23] MEDS ORDERED: LIDOCAINE PATCH REMOVAL MC SCH (22:00)
== END 2020-12-23 07:10 | disposition home or self-care (01) ==
LOC: JER 03:14
PROC: 3E0233Z Introduction of Anti-inflammatory into Muscle, Percutaneous Approach (ICD-10-PCS; principal; 2020-12-23)
DX: R10.9 Unspecified abdominal pain (principal)
CPT/HCPCS: 99284-25

== ENCOUNTER 2021-02-11 09:03 | Emergency (ER) | payer OTHER ==
[2021-02-11 09:07] VITALS: BMI 29.8
[2021-02-11] MEDS ORDERED: ACETAMINOPHEN 500 MG TABLET (FP) PO ONE (09:27)
[2021-02-11] MEDS ORDERED: ACETAMINOPHEN 325 MG TABLET (FP) ONE (09:30)
[2021-02-11 12:09] VITALS: BP 134/79; PULSE 81; TEMP 98.3
== END 2021-02-11 13:06 | disposition home or self-care (01) ==
LOC: JER 09:03
DX: M25.552 Pain in left hip (principal); R07.81 Pleurodynia; W07.XXXA Fall from chair, initial encounter
CPT/HCPCS: 71045-TC-FY; 71250-TC; 72170-TC-FY; 82962; 93005; 93010; 99285-25

== ENCOUNTER 2021-02-19 13:45 | Emergency (ER) | payer OTHER ==
[2021-02-19 14:07] VITALS: BMI 29.8
[2021-02-19 17:13] LABS: BASO % 0.4 % (0-2.0); EOS % 1.3 % (0-4.5); HEMATOCRIT 35.6 % (35.4-49); HEMOGLOBIN 12.5 GM/dL (11.7-16.9); MCH 30.1 pg (25.7-33.7); MCHC 35.1 g/dl (32.0-35.9); MEAN CELL VOLUME 85.8 fl (80-96); MONO % 10.8 % (3.8-10.2); NEUT % 64.5 % (42.8-82.8); PLATELET COUNT 150 10^3/uL (134-434); RBC 4.15 M/mm3 (4.00-5.60); RDW 15.2 % (11.9-15.9); WHITE BLOOD COUNT 5.7 K/mm3 (4.0-10.0)
[2021-02-19 17:15] LABS: ALBUMIN 3.2 g/dl (3.4-5.0); BLOOD UREA NITROGEN 5.5 mg/dL (7-18); CALCIUM 8.9 mg/dL (8.5-10.1)
[2021-02-19 17:19] LABS: CREATININE 0.6 mg/dL (0.55-1.3)
[2021-02-19 17:20] LABS: BILIRUBIN,TOTAL 0.8 mg/dL (0.2-1); TOT PROT 5.8 g/dl (6.4-8.2)
[2021-02-19 21:14] LABS: URINE APPEARANCE CLEAR; URINE BILIRUBIN NEGATIVE (NEGATIVE); URINE COLOR YELLOW; URINE GLUCOSE (UA) NEGATIVE (NEGATIVE); URINE KETONE NEGATIVE (NEGATIVE); URINE LEUK ESTERASE NEGATIVE (NEGATIVE); URINE NITRITE NEGATIVE (NEGATIVE); URINE PROTEIN NEGATIVE (NEGATIVE); URINE UROBILINOGEN 0.2 mg/dL (0.2-1.0)
[2021-02-19 21:36] VITALS: BP 127/79; PULSE 72; TEMP 98.5
== END 2021-02-19 22:58 ==
LOC: JER 13:45
DX: R19.7 Diarrhea, unspecified (principal)
CPT/HCPCS: 36415; 70450-TC; 71045-TC-FY; 80053; 81003; 85025; 87086; 99284-25

== ENCOUNTER 2021-06-29 06:16 | Emergency (ER) | payer OTHER ==
[2021-06-29 06:51] VITALS: BMI 29.3
[2021-06-29] MEDS ORDERED: SODIUM CHLORIDE 1,000 ML IV STA (06:54)
[2021-06-29 07:41] LABS: VENOUS BASE EXCESS -0.2 mmol/L (-2-2); VENOUS O2 SATURATION 98.1 % (70-80); VENOUS PCO2 37.3 mmHg (38-52); VENOUS PH 7.425 (7.310-7.410)
[2021-06-29 08:01] LABS: BASO % 0.4 % (0-2.0); EOS % 1.5 % (0-4.5); HEMATOCRIT 37.4 % (35.4-49); HEMOGLOBIN 12.3 GM/dL (11.7-16.9); LYMPH % 24.3 % (8-40); MCH 28.5 pg (25.7-33.7); MCHC 32.8 g/dl (32.0-35.9); MEAN CELL VOLUME 86.7 fl (80-96); MEAN PLT VOLUME 8.3 fl (7.5-11.1); MONO % 8.3 % (3.8-10.2); NEUT % 65.5 % (42.8-82.8); PLATELET COUNT 129 10^3/uL (134-434); RBC 4.31 M/mm3 (4.00-5.60); RDW 15.9 % (11.9-15.9); WHITE BLOOD COUNT 4.8 K/mm3 (4.0-10.0)
[2021-06-29 08:26] LABS: CALCIUM 8.4 mg/dL (8.5-10.1)
[2021-06-29 08:27] LABS: ALBUMIN 2.9 g/dl (3.4-5.0); BLOOD UREA NITROGEN 14.6 mg/dL (7-18)
[2021-06-29 08:30] LABS: CREATININE 0.6 mg/dL (0.55-1.3)
[2021-06-29 08:32] LABS: BILIRUBIN,TOTAL 0.8 mg/dL (0.2-1); TOT PROT 5.1 g/dl (6.4-8.2)
[2021-06-29 11:49] LABS: PH,URINE 7.5 (5.0-8.0); URINE APPEARANCE CLEAR; URINE BILIRUBIN NEGATIVE (NEGATIVE); URINE COLOR YELLOW; URINE GLUCOSE (UA) 1+ (NEGATIVE); URINE KETONE NEGATIVE (NEGATIVE); URINE LEUK ESTERASE NEGATIVE (NEGATIVE); URINE NITRITE NEGATIVE (NEGATIVE); URINE PROTEIN NEGATIVE (NEGATIVE); URINE UROBILINOGEN 0.2 mg/dL (0.2-1.0)
[2021-06-29 12:16] VITALS: BP 128/83; PULSE 88; TEMP 98.5
== END 2021-06-29 12:17 | disposition home or self-care (01) ==
LOC: JER 06:16
PROC: 3E0337Z Introduction of Electrolytic and Water Balance Substance into Peripheral Vein, Percutaneous Approach (ICD-10-PCS; principal; 2021-06-29)
DX: R53.1 Weakness (principal)
CPT/HCPCS: 36415; 80053; 81003; 82010; 82550; 82553; 82803; 82962; 83605; 84484; 85025; 87804; 93005; 93010; 99284-25; C9803; U0003; U0005

== ENCOUNTER 2021-06-30 16:42 | Emergency (ER) | payer OTHER ==
[2021-06-30 17:37] VITALS: BP 116/70; PULSE 96; TEMP 97.9; BMI 29.3
[2021-06-30] MEDS ORDERED: LACTATED RINGERS SOLUTION 1000 ML INFUS.BAG IV ONE (18:25)
[2021-06-30 19:45] LABS: VENOUS O2 SATURATION 86.1 % (70-80); VENOUS PH 7.436 (7.310-7.410)
[2021-06-30 19:56] LABS: BASO % 0.3 % (0-2.0); HEMATOCRIT 38.3 % (35.4-49); HEMOGLOBIN 13.1 GM/dL (11.7-16.9); LYMPH % 22.7 % (8-40); MCH 29.4 pg (25.7-33.7); MCHC 34.2 g/dl (32.0-35.9); MEAN CELL VOLUME 85.9 fl (80-96); MEAN PLT VOLUME 8.2 fl (7.5-11.1); MONO % 11.1 % (3.8-10.2); NEUT % 64.9 % (42.8-82.8); PLATELET COUNT 156 10^3/uL (134-434); RBC 4.46 M/mm3 (4.00-5.60); RDW 15.9 % (11.9-15.9); WHITE BLOOD COUNT 5.7 K/mm3 (4.0-10.0)
[2021-06-30 20:13] LABS: CHLORIDE 102 mmol/L (98-107); SODIUM 139 mmol/L (136-145)
[2021-06-30 20:15] LABS: CALCIUM 9.1 mg/dL (8.5-10.1)
[2021-06-30 20:16] LABS: ALBUMIN 3.4 g/dl (3.4-5.0); ANION GAP 9 MMOL/L (8-16); BLOOD UREA NITROGEN 9.8 mg/dL (7-18); CO2 28 mmol/L (21-32); GLUCOSE,RANDOM 318 mg/dL (74-106); LIPASE 60 U/L (73-393)
[2021-06-30 20:19] LABS: CREATININE 0.7 mg/dL (0.55-1.3); SGOT/AST 24 U/L (15-37); SGPT/ALT 24 U/L (13-61)
[2021-06-30 20:20] LABS: BILIRUBIN,TOTAL 0.9 mg/dL (0.2-1); TOT PROT 6.2 g/dl (6.4-8.2)
[2021-06-30 20:21] LABS: ALK PHOS 91 U/L (45-117)
[2021-06-30 21:08] LABS: PH,URINE 6.5 (5.0-8.0); URINE APPEARANCE CLEAR; URINE BILIRUBIN NEGATIVE (NEGATIVE); URINE COLOR YELLOW; URINE GLUCOSE (UA) 3+ (NEGATIVE); URINE KETONE NEGATIVE (NEGATIVE); URINE LEUK ESTERASE NEGATIVE (NEGATIVE); URINE NITRITE NEGATIVE (NEGATIVE); URINE PROTEIN NEGATIVE (NEGATIVE); URINE UROBILINOGEN 0.2 mg/dL (0.2-1.0)
== END 2021-06-30 21:48 ==
LOC: JER 16:42
DX: E11.65 Type 2 diabetes mellitus with hyperglycemia (principal)
CPT/HCPCS: 36415; 80053; 81003; 82010; 82550; 82553; 82803; 82962; 83690; 84484; 85025; 87086; 93005; 93010; 99284-25

== ENCOUNTER 2021-07-17 00:55 | Emergency (ER) | payer OTHER ==
[2021-07-17 01:12] VITALS: BP 115/55; PULSE 67; TEMP 98.2; BMI 29.5
[2021-07-17] MEDS ORDERED: ACETAMINOPHEN 325 MG TABLET (FP) PO ONE (01:48)
[2021-07-17] MEDS ORDERED: ACETAMINOPHEN 325 MG TABLET (FP) ONE (01:56)
[2021-07-18 14:11] LABS: SARS-CoV-2 NAA Not Detected (Not Detected)
== END 2021-07-17 02:47 | disposition home or self-care (01) ==
LOC: JER 00:55
DX: J02.9 Acute pharyngitis, unspecified (principal)
CPT/HCPCS: 99283-25; C9803; U0003; U0005

== ENCOUNTER 2021-07-23 23:28 | Emergency (ER) | payer OTHER ==
[2021-07-23 23:36] VITALS: BP 131/70; PULSE 73; TEMP 97.6; BMI 33.5
[2021-07-24] MEDS ORDERED: DIVALPROEX NA *ER* EXTEND REL 500 MG TABLET.SA (FP) PO ONE (00:44)
[2021-07-24] MEDS ORDERED: ZOLPIDEM TARTRATE 5 MG TABLET PO ONE (00:44)
[2021-07-24] MEDS ORDERED: DIVALPROEX SODIUM 500 MG TABLET E.C. ONE (01:13)
[2021-07-24] MEDS ORDERED: ZOLPIDEM TARTRATE 5 MG TABLET ONE (01:13)
== END 2021-07-24 01:56 | disposition home or self-care (01) ==
LOC: JERFT 23:28
DX: Z76.0 Encounter for issue of repeat prescription (principal)
CPT/HCPCS: 82962; 99281-25

== ENCOUNTER 2021-10-28 23:48 | Emergency (ER) | payer OTHER ==
[2021-10-28 23:54] VITALS: BP 142/94; PULSE 66; TEMP 98.2; BMI 33.5
[2021-10-29 01:22] LABS: BASO % 0.6 % (0-2.0); EOS % 2.3 % (0-4.5); HEMATOCRIT 38.9 % (35.4-49); HEMOGLOBIN 13.4 GM/dL (11.7-16.9); LYMPH % 29.8 % (8-40); MCH 30.7 pg (25.7-33.7); MCHC 34.5 g/dl (32.0-35.9); MEAN PLT VOLUME 7.8 fl (7.5-11.1); MONO % 11.1 % (3.8-10.2); NEUT % 56.2 % (42.8-82.8); PLATELET COUNT 176 10^3/uL (134-434); RBC 4.37 M/mm3 (4.00-5.60); RDW 14.2 % (11.9-15.9); WHITE BLOOD COUNT 5.8 K/mm3 (4.0-10.0)
[2021-10-29 01:47] LABS: BLOOD UREA NITROGEN 12.2 mg/dL (7-18)
[2021-10-29 01:48] LABS: ALBUMIN 3.5 g/dl (3.4-5.0)
[2021-10-29 01:49] LABS: MAGNESIUM 1.7 mg/dL (1.8-2.4)
[2021-10-29 01:50] LABS: CREATININE 0.6 mg/dL (0.55-1.3)
[2021-10-29 01:52] LABS: BILIRUBIN,TOTAL 1.1 mg/dL (0.2-1); TOT PROT 6.2 g/dl (6.4-8.2)
[2021-10-29] MEDS ORDERED: MAGNESIUM SULF 50% (8.12 MEQ/2 ML-1 GM VIAL) IVPB ONE (01:57)
[2021-10-29] MEDS ORDERED: SODIUM CHLORIDE 1,000 ML IV STA (01:59)
[2021-10-29] MEDS ORDERED: MAGNESIUM SULFATE IN WATER 2 GM/50 ML IVPB IVPB ONE (02:24)
== END 2021-10-29 03:45 | disposition home or self-care (01) ==
LOC: JER 23:48
PROC: 3E033NZ Introduction of Analgesics, Hypnotics, Sedatives into Peripheral Vein, Percutaneous Approach (ICD-10-PCS; principal; 2021-10-29)
PROC: 3E0337Z Introduction of Electrolytic and Water Balance Substance into Peripheral Vein, Percutaneous Approach (ICD-10-PCS; 2021-10-29)
DX: M62.82 Rhabdomyolysis (principal); E83.42 Hypomagnesemia
CPT/HCPCS: 36415; 80053; 80164; 82550; 82553; 83735; 85025; 93005; 93010; 99284-25

== ENCOUNTER 2021-11-18 10:53 | Inpatient (IN) | payer OTHER ==
[2021-11-18 11:29] VITALS: BMI 30.7
[2021-11-18 12:21] LABS: BASO % 0.6 % (0-2.0); EOS % 2.5 % (0-4.5); HEMATOCRIT 40.1 % (35.4-49); HEMOGLOBIN 13.8 GM/dL (11.7-16.9); LYMPH % 26.4 % (8-40); MCH 30.3 pg (25.7-33.7); MCHC 34.4 g/dl (32.0-35.9); MEAN CELL VOLUME 88.3 fl (80-96); MEAN PLT VOLUME 7.7 fl (7.5-11.1); MONO % 10.3 % (3.8-10.2); NEUT % 60.2 % (42.8-82.8); PLATELET COUNT 165 10^3/uL (134-434); RBC 4.54 M/mm3 (4.00-5.60); RDW 13.8 % (11.9-15.9)
[2021-11-18 12:28] LABS: INR 1.09 (0.83-1.09); PROTHROMBIN TIME (PATIENT) 12.5 SEC (9.7-13.0)
[2021-11-18 12:30] LABS: ACTIVATED PTT 29.2 SECONDS (25.2-36.5)
[2021-11-18 12:44] LABS: ALBUMIN 3.7 g/dl (3.4-5.0); BLOOD UREA NITROGEN 8.7 mg/dL (7-18); CALCIUM 9.5 mg/dL (8.5-10.1)
[2021-11-18 12:47] LABS: CREATININE 0.7 mg/dL (0.55-1.3)
[2021-11-18 12:49] LABS: BILIRUBIN,TOTAL 0.6 mg/dL (0.2-1); TOT PROT 6.7 g/dl (6.4-8.2)
[2021-11-18] MEDS ORDERED: ASPIRIN 81 MG CHEWABLE TABLETS PO ONE (15:14)
[2021-11-18] MEDS ORDERED: ATORVASTATIN CA 40 MG TABLET (FP) PO ONE (15:16)
[2021-11-18] MEDS ORDERED: ASPIRIN 81 MG CHEWABLE TABLETS ONE (15:35)
[2021-11-18] MEDS ORDERED: ATORVASTATIN CA 40 MG TABLET (FP) ONE (15:35)
[2021-11-18] MEDS: clonazePAM 0.5 MG TABLET PO SCH (21:56)
[2021-11-18] MEDS: DIVALPROEX SODIUM 250 MG TABLET E.C. PO SCH (21:58)
[2021-11-18] MEDS: INSULIN (LEVEMIR) 100 UNITS/ML UNITS SQ SCH (22:04)
[2021-11-19] MEDS ORDERED: ACETAMINOPHEN 325 MG TABLET (FP) PO ONE (04:52)
[2021-11-19] MEDS: clonazePAM 0.5 MG TABLET PO SCH ×3 (06:00→21:46)
[2021-11-19 07:07] LABS: BLOOD UREA NITROGEN 10.2 mg/dL (7-18); CALCIUM 8.8 mg/dL (8.5-10.1); MAGNESIUM 1.7 mg/dL (1.8-2.4)
[2021-11-19 07:11] LABS: CREATININE 0.6 mg/dL (0.55-1.3)
[2021-11-19] MEDS: ASPIRIN COATED 81 MG TABLET.EC PO SCH (10:55)
[2021-11-19] MEDS: HYDROCHLOROTHIAZIDE 25 MG TABLET (FP) PO SCH (10:55)
[2021-11-19] MEDS: ALLOPURINOL 300 MG TABLET (FP) PO SCH (10:55)
[2021-11-19] MEDS: DIVALPROEX SODIUM 250 MG TABLET E.C. PO SCH ×2 (10:55→21:45)
[2021-11-19] MEDS: LOSARTAN POTASSIUM 50 MG TABLET PO SCH (10:56)
[2021-11-19] MEDS: INSULIN (LEVEMIR) 100 UNITS/ML UNITS SQ SCH ×2 (10:59→21:45)
[2021-11-19] MEDS ORDERED: POTASSIUM CHLORIDE TABS 20 MEQ TABLET.ER (FP) PO ONE (11:45)
[2021-11-19] MEDS ORDERED: MAGNESIUM 1GM/D5W - 1 GM/100 ML IVPB IVPB ONE (11:45)
[2021-11-19] MEDS: INSULIN SLIDING SCALE (NOVOLOG) 1 VIAL SQ SCH (20:45)
[2021-11-19] MEDS ORDERED: ATORVASTATIN CA 40 MG TABLET (FP) PO SCH (22:00)
[2021-11-20] MEDS: PRAMIPEXOLE DIHYDROCHLORIDE 0.25 MG TABLET PO SCH ×3 (00:09→17:47)
[2021-11-20] MEDS: clonazePAM 0.5 MG TABLET PO SCH ×3 (06:07→21:23)
[2021-11-20] MEDS: INSULIN SLIDING SCALE (NOVOLOG) 1 VIAL SQ SCH ×3 (06:32→18:30)
[2021-11-20] MEDS: HYDROCHLOROTHIAZIDE 25 MG TABLET (FP) PO SCH (10:01)
[2021-11-20] MEDS: DIVALPROEX SODIUM 250 MG TABLET E.C. PO SCH ×2 (10:02→21:23)
[2021-11-20] MEDS: ASPIRIN COATED 81 MG TABLET.EC PO SCH (10:02)
[2021-11-20] MEDS: ALLOPURINOL 300 MG TABLET (FP) PO SCH (10:03)
[2021-11-20] MEDS: LOSARTAN POTASSIUM 50 MG TABLET PO SCH (10:03)
[2021-11-20] MEDS: INSULIN (LEVEMIR) 100 UNITS/ML UNITS SQ SCH ×2 (10:04→21:23)
[2021-11-20 13:25] LABS: BASO % 0.6 % (0-2.0); EOS % 3.2 % (0-4.5); HEMOGLOBIN 13.5 GM/dL (11.7-16.9); MCHC 33.8 g/dl (32.0-35.9); MEAN CELL VOLUME 88.9 fl (80-96); MEAN PLT VOLUME 7.4 fl (7.5-11.1); MONO % 9.8 % (3.8-10.2); NEUT % 55.4 % (42.8-82.8); PLATELET COUNT 187 10^3/uL (134-434); RDW 14.2 % (11.9-15.9); WHITE BLOOD COUNT 4.9 K/mm3 (4.0-10.0)
[2021-11-20 13:47] LABS: CALCIUM 9.2 mg/dL (8.5-10.1)
[2021-11-20 13:48] LABS: BLOOD UREA NITROGEN 10.2 mg/dL (7-18); MAGNESIUM 1.8 mg/dL (1.8-2.4)
[2021-11-20 13:51] LABS: CREATININE 0.6 mg/dL (0.55-1.3)
[2021-11-20] MEDS ORDERED: POLYETHYLENE GLYCOL (HEALTHYLAX) 3350 17 GM PACKET PO ONE (17:45)
[2021-11-21] MEDS ORDERED: ACETAMINOPHEN 1000 MG/100 ML BAG IVPB ONE (00:05)
[2021-11-21] MEDS: clonazePAM 0.5 MG TABLET PO SCH ×3 (05:51→21:23)
[2021-11-21] MEDS: ACETAMINOPHEN 1000 MG/100 ML BAG IVPB PRN ×2 (06:50→16:07)
[2021-11-21] MEDS: PRAMIPEXOLE DIHYDROCHLORIDE 0.25 MG TABLET PO SCH ×2 (07:37→17:34)
[2021-11-21] MEDS: INSULIN SLIDING SCALE (NOVOLOG) 1 VIAL SQ SCH ×3 (07:37→17:46)
[2021-11-21] MEDS: ALLOPURINOL 300 MG TABLET (FP) PO SCH (10:41)
[2021-11-21] MEDS: ASPIRIN COATED 81 MG TABLET.EC PO SCH ×2 (10:41→12:04)
[2021-11-21] MEDS: HYDROCHLOROTHIAZIDE 25 MG TABLET (FP) PO SCH ×2 (10:41→12:07)
[2021-11-21] MEDS: DIVALPROEX SODIUM 250 MG TABLET E.C. PO SCH ×2 (10:41→21:22)
[2021-11-21] MEDS: LOSARTAN POTASSIUM 50 MG TABLET PO SCH (10:42)
[2021-11-21] MEDS: INSULIN (LEVEMIR) 100 UNITS/ML UNITS SQ SCH ×2 (10:58→22:06)
[2021-11-21] MEDS: ATORVASTATIN CA 80 MG TABLET (FP) PO SCH (21:23)
[2021-11-21] MEDS: POLYETHYLENE GLYCOL (HEALTHYLAX) 3350 17 GM PACKET PO PRN (21:29)
[2021-11-22] MEDS: clonazePAM 0.5 MG TABLET PO SCH ×3 (05:55→21:33)
[2021-11-22] MEDS: INSULIN SLIDING SCALE (NOVOLOG) 1 VIAL SQ SCH ×3 (06:01→16:50)
[2021-11-22] MEDS: PRAMIPEXOLE DIHYDROCHLORIDE 0.25 MG TABLET PO SCH ×2 (06:01→16:41)
[2021-11-22 07:30] LABS: BASO % 0.5 % (0-2.0); EOS % 4.1 % (0-4.5); HEMATOCRIT 39.6 % (35.4-49); HEMOGLOBIN 13.7 GM/dL (11.7-16.9); LYMPH % 29.9 % (8-40); MCH 30.3 pg (25.7-33.7); MCHC 34.6 g/dl (32.0-35.9); MEAN CELL VOLUME 87.6 fl (80-96); MEAN PLT VOLUME 7.4 fl (7.5-11.1); MONO % 10.1 % (3.8-10.2); NEUT % 55.4 % (42.8-82.8); PLATELET COUNT 162 10^3/uL (134-434); RBC 4.52 M/mm3 (4.00-5.60); RDW 13.7 % (11.9-15.9)
[2021-11-22 08:00] LABS: BLOOD UREA NITROGEN 11.4 mg/dL (7-18); CALCIUM 9.1 mg/dL (8.5-10.1)
[2021-11-22 08:03] LABS: CREATININE 0.7 mg/dL (0.55-1.3)
[2021-11-22] MEDS: LOSARTAN POTASSIUM 50 MG TABLET PO SCH (10:25)
[2021-11-22] MEDS: ASPIRIN COATED 81 MG TABLET.EC PO SCH (10:25)
[2021-11-22] MEDS: HYDROCHLOROTHIAZIDE 25 MG TABLET (FP) PO SCH (10:25)
[2021-11-22] MEDS: ALLOPURINOL 300 MG TABLET (FP) PO SCH (10:25)
[2021-11-22] MEDS: DIVALPROEX SODIUM 250 MG TABLET E.C. PO SCH ×2 (10:26→21:34)
[2021-11-22] MEDS: INSULIN (LEVEMIR) 100 UNITS/ML UNITS SQ SCH ×2 (10:48→21:35)
[2021-11-22] MEDS: GABAPENTIN 100 MG CAPSULE PO SCH ×2 (12:32→21:33)
[2021-11-22] MEDS: POLYETHYLENE GLYCOL (HEALTHYLAX) 3350 17 GM PACKET PO PRN (13:20)
[2021-11-22] MEDS: ATORVASTATIN CA 80 MG TABLET (FP) PO SCH (21:34)
[2021-11-23] MEDS ORDERED: MELATONIN 5 MG TABLETS PO ONE (01:27)
[2021-11-23] MEDS: INSULIN SLIDING SCALE (NOVOLOG) 1 VIAL SQ SCH ×3 (06:08→17:47)
[2021-11-23] MEDS: clonazePAM 0.5 MG TABLET PO SCH ×3 (06:42→21:02)
[2021-11-23] MEDS: PRAMIPEXOLE DIHYDROCHLORIDE 0.25 MG TABLET PO SCH ×2 (06:42→17:47)
[2021-11-23] MEDS: GABAPENTIN 100 MG CAPSULE PO SCH ×2 (09:01→21:02)
[2021-11-23] MEDS: HYDROCHLOROTHIAZIDE 25 MG TABLET (FP) PO SCH (09:01)
[2021-11-23] MEDS: ALLOPURINOL 300 MG TABLET (FP) PO SCH (09:01)
[2021-11-23] MEDS: ASPIRIN COATED 81 MG TABLET.EC PO SCH (09:01)
[2021-11-23] MEDS: DIVALPROEX SODIUM 250 MG TABLET E.C. PO SCH ×2 (09:01→21:02)
[2021-11-23] MEDS: LOSARTAN POTASSIUM 50 MG TABLET PO SCH (09:01)
[2021-11-23] MEDS: INSULIN (LEVEMIR) 100 UNITS/ML UNITS SQ SCH ×2 (11:00→21:02)
[2021-11-23] MEDS: ATORVASTATIN CA 80 MG TABLET (FP) PO SCH (21:02)
[2021-11-23] MEDS ORDERED: MELATONIN 5 MG TABLETS PO PRN (22:10)
[2021-11-24] MEDS: clonazePAM 0.5 MG TABLET PO SCH ×2 (06:06→14:58)
[2021-11-24] MEDS: PRAMIPEXOLE DIHYDROCHLORIDE 0.25 MG TABLET PO SCH (06:06)
[2021-11-24] MEDS: INSULIN SLIDING SCALE (NOVOLOG) 1 VIAL SQ SCH ×2 (06:17→11:14)
[2021-11-24] MEDS: LOSARTAN POTASSIUM 50 MG TABLET PO SCH (09:46)
[2021-11-24] MEDS: HYDROCHLOROTHIAZIDE 25 MG TABLET (FP) PO SCH (09:47)
[2021-11-24] MEDS: ALLOPURINOL 300 MG TABLET (FP) PO SCH (09:47)
[2021-11-24] MEDS: DIVALPROEX SODIUM 250 MG TABLET E.C. PO SCH (09:47)
[2021-11-24] MEDS: ASPIRIN COATED 81 MG TABLET.EC PO SCH (09:47)
[2021-11-24] MEDS: INSULIN (LEVEMIR) 100 UNITS/ML UNITS SQ SCH (09:47)
[2021-11-24] MEDS: GABAPENTIN 100 MG CAPSULE PO SCH (09:47)
[2021-11-24 15:15] VITALS: BP 119/81; PULSE 74; TEMP 98.2
== END 2021-11-24 16:29 | DRG 179 ==
LOC: JER 10:53 → JERBED 14:17 → J4W 19:43
PROVIDERS: ADMIT Internal Medicine; ATTEND Internal Medicine
DX: U07.1 COVID-19 (principal); E11.9 Type 2 diabetes mellitus without complications; I10 Essential (primary) hypertension; E78.5 Hyperlipidemia, unspecified; K21.9 Gastro-esophageal reflux disease without esophagitis; F25.8 Other schizoaffective disorders; F41.8 Other specified anxiety disorders; G20 Parkinson's disease; M10.9 Gout, unspecified; R26.81 Unsteadiness on feet; G24.01 Drug induced subacute dyskinesia; R47.81 Slurred speech
CPT/HCPCS: 36415; 70450-TC; 70551-TC; 71045-TC-FY; 80048; 80053; 80061; 82550; 82553; 82962; 83735; 84484; 85025; 85610; 85730; 93005; 93010; 97116-GP; 97162-GP; 99285-25; C9803-CS; Q9967; U0003; U0005

== ENCOUNTER 2021-12-07 19:28 | Observation (INO) | payer OTHER ==
[2021-12-07] MEDS ORDERED: DEXTROSE 50%-WATER 25 GM/50 ML DISP.SYRIN ONE (20:01)
[2021-12-07] MEDS ORDERED: DEXTROSE 50%-WATER - 25 GM/50 ML VIAL IVPUSH ONE (20:52)
[2021-12-07 21:22] LABS: BASO % 0.4 % (0-2.0); EOS % 1.3 % (0-4.5); HEMATOCRIT 36.1 % (35.4-49); HEMOGLOBIN 12.9 GM/dL (11.7-16.9); LYMPH % 16.2 % (8-40); MCHC 35.6 g/dl (32.0-35.9); MEAN PLT VOLUME 8.4 fl (7.5-11.1); MONO % 9.2 % (3.8-10.2); NEUT % 72.9 % (42.8-82.8); RBC 4.15 M/mm3 (4.00-5.60); WHITE BLOOD COUNT 5.6 K/mm3 (4.0-10.0)
[2021-12-07 21:29] LABS: INR 1.09 (0.83-1.09); PROTHROMBIN TIME (PATIENT) 12.6 SEC (9.7-13.0)
[2021-12-07 21:31] LABS: PH,URINE 7.5 (5.0-8.0); URINE APPEARANCE CLEAR; URINE BILIRUBIN NEGATIVE (NEGATIVE); URINE COLOR YELLOW; URINE GLUCOSE (UA) 1+ (NEGATIVE); URINE KETONE NEGATIVE (NEGATIVE); URINE LEUK ESTERASE NEGATIVE (NEGATIVE); URINE NITRITE NEGATIVE (NEGATIVE); URINE PROTEIN NEGATIVE (NEGATIVE); URINE UROBILINOGEN 0.2 mg/dL (0.2-1.0)
[2021-12-07 21:31] LABS: ACTIVATED PTT 24.3 SECONDS (25.2-36.5)
[2021-12-07 21:41] LABS: PLATELET COUNT 135 10^3/uL (134-434)
[2021-12-07 21:42] LABS: CALCIUM 8.7 mg/dL (8.5-10.1)
[2021-12-07 21:43] LABS: ALBUMIN 3.3 g/dl (3.4-5.0)
[2021-12-07 21:44] LABS: BLOOD UREA NITROGEN 5.4 mg/dL (7-18)
[2021-12-07 21:46] LABS: CREATININE 0.5 mg/dL (0.55-1.3)
[2021-12-07] MEDS: SODIUM CHLORIDE 1,000 ML IV SCH (21:46)
[2021-12-07 21:48] LABS: TOT PROT 5.8 g/dl (6.4-8.2)
[2021-12-08] MEDS ORDERED: POLYETHYLENE GLYCOL (HEALTHYLAX) 3350 17 GM PACKET PO PRN (00:31)
[2021-12-08 01:58] VITALS: BMI 34.0
[2021-12-08] MEDS: ACETAMINOPHEN 325 MG TABLET (FP) PO PRN (02:20)
[2021-12-08] MEDS ORDERED: DIPHENOXYLATE 2.5/ATROPINE.025 1 COMBO TABLET PO PRN (02:46)
[2021-12-08] MEDS ORDERED: ASPIRIN 81 MG CHEWABLE TABLETS PO ONE (05:36)
[2021-12-08] MEDS ORDERED: KETOROLAC TROMETHAMINE 15 MG/ML VIAL IVPUSH ONE (05:36)
[2021-12-08] MEDS: INSULIN SLIDING SCALE (NOVOLOG) 1 VIAL SQ SCH ×4 (06:34→21:36)
[2021-12-08] MEDS: INSULIN (LEVEMIR) 100 UNITS/ML UNITS SQ SCH (09:43)
[2021-12-08] MEDS ORDERED: LOSARTAN POTASSIUM 50 MG TABLET ONE (09:44)
[2021-12-08] MEDS ORDERED: LOSARTAN POTASSIUM 25 MG TABLET ONE (09:45)
[2021-12-08] MEDS: VITAMIN B COMPLEX W/C COMBO TABLET (FP) PO SCH (09:51)
[2021-12-08] MEDS: ENOXAPARIN NA (PORCINE) 40 MG/0.4 ML DISP.SYRIN SQ SCH (09:51)
[2021-12-08] MEDS: PRAMIPEXOLE DIHYDROCHLORIDE 0.5 MG TABLET PO SCH ×2 (09:51→21:29)
[2021-12-08] MEDS: LOSARTAN POTASSIUM 50 MG, LOSARTAN POTASSIUM 25 MG PO SCH (09:51)
[2021-12-08] MEDS: ASCORBIC ACID 500 MG TABLET (FP) PO SCH (09:51)
[2021-12-08] MEDS: CHOLECALCIFEROL (VIT D3) 1,000 UNIT (25 MCG) TABLET PO SCH (09:52)
[2021-12-08] MEDS ORDERED: LOSARTAN POTASSIUM 25 MG TABLET PO SCH (10:00)
[2021-12-08] MEDS: clonazePAM 0.5 MG TABLET PO SCH ×2 (13:59→21:28)
[2021-12-08] MEDS: GABAPENTIN 100 MG CAPSULE PO SCH ×2 (13:59→21:29)
[2021-12-08] MEDS ORDERED: INSULIN (LEVEMIR) 100 UNITS/ML UNITS SQ SCH (16:00)
[2021-12-08] MEDS: SODIUM CHLORIDE 1,000 ML IV SCH (21:28)
[2021-12-08] MEDS ORDERED: LATANOPROST 0.005% OPHTH SOLN 2.5ML BOTTLE OU SCH (22:00)
[2021-12-08] MEDS ORDERED: ATORVASTATIN CA 80 MG TABLET (FP) PO SCH (22:00)
[2021-12-08] MEDS ORDERED: MELATONIN 5 MG TABLETS PO SCH (22:00)
[2021-12-08] MEDS ORDERED: GABAPENTIN 300 MG CAPSULE PO SCH (22:45)
[2021-12-09] MEDS: PRAMIPEXOLE DIHYDROCHLORIDE 0.5 MG TABLET PO SCH ×4 (00:48→14:06)
[2021-12-09] MEDS: GABAPENTIN 300 MG CAPSULE PO SCH ×4 (00:48→14:06)
[2021-12-09] MEDS: ACETAMINOPHEN 325 MG TABLET (FP) PO PRN (04:08)
[2021-12-09] MEDS: INSULIN SLIDING SCALE (NOVOLOG) 1 VIAL SQ SCH ×2 (06:49→12:15)
[2021-12-09] MEDS: clonazePAM 0.5 MG TABLET PO SCH ×2 (06:49→14:06)
[2021-12-09 08:17] LABS: BASO % 0.4 % (0-2.0); EOS % 3.1 % (0-4.5); HEMATOCRIT 36.2 % (35.4-49); HEMOGLOBIN 12.4 GM/dL (11.7-16.9); LYMPH % 25.5 % (8-40); MCH 30.4 pg (25.7-33.7); MCHC 34.2 g/dl (32.0-35.9); MEAN CELL VOLUME 88.7 fl (80-96); MEAN PLT VOLUME 7.9 fl (7.5-11.1); PLATELET COUNT 153 10^3/uL (134-434); RBC 4.09 M/mm3 (4.00-5.60); RDW 13.9 % (11.9-15.9); WHITE BLOOD COUNT 4.5 K/mm3 (4.0-10.0)
[2021-12-09 08:45] LABS: BLOOD UREA NITROGEN 7.3 mg/dL (7-18); CALCIUM 8.4 mg/dL (8.5-10.1)
[2021-12-09 08:48] LABS: CREATININE 0.5 mg/dL (0.55-1.3)
[2021-12-09] MEDS: INSULIN (LEVEMIR) 100 UNITS/ML UNITS SQ SCH (08:55)
[2021-12-09] MEDS ORDERED: LOSARTAN POTASSIUM 25 MG TABLET ONE (09:58)
[2021-12-09] MEDS ORDERED: LOSARTAN POTASSIUM 50 MG TABLET ONE (09:58)
[2021-12-09] MEDS ORDERED: ASPIRIN COATED 81 MG TABLET.EC PO SCH (10:00)
[2021-12-09] MEDS: ENOXAPARIN NA (PORCINE) 40 MG/0.4 ML DISP.SYRIN SQ SCH (10:14)
[2021-12-09] MEDS: LOSARTAN POTASSIUM 50 MG, LOSARTAN POTASSIUM 25 MG PO SCH (10:15)
[2021-12-09] MEDS: ASCORBIC ACID 500 MG TABLET (FP) PO SCH (10:15)
[2021-12-09] MEDS: VITAMIN B COMPLEX W/C COMBO TABLET (FP) PO SCH (10:15)
[2021-12-09] MEDS: CHOLECALCIFEROL (VIT D3) 1,000 UNIT (25 MCG) TABLET PO SCH (10:16)
[2021-12-09 14:31] VITALS: BP 112/68; PULSE 69; TEMP 97.9
== END 2021-12-09 14:30 | disposition home or self-care (01) ==
LOC: JER 19:28 → JERBED 12-08 00:28 → J4W 12-08 01:48
PROVIDERS: ADMIT Internal Medicine; ATTEND Internal Medicine
PROC: 3E033GC Introduction of Other Therapeutic Substance into Peripheral Vein, Percutaneous Approach (ICD-10-PCS; principal; 2021-12-08)
PROC: 3E013VG Introduction of Insulin into Subcutaneous Tissue, Percutaneous Approach (ICD-10-PCS; 2021-12-08)
PROC: 3E0333Z Introduction of Anti-inflammatory into Peripheral Vein, Percutaneous Approach (ICD-10-PCS; 2021-12-08)
DX: I69.354 Hemiplegia and hemiparesis following cerebral infarction affecting left non-dominant side (principal); E11.649 Type 2 diabetes mellitus with hypoglycemia without coma; I11.0 Hypertensive heart disease with heart failure; G24.01 Drug induced subacute dyskinesia; G20 Parkinson's disease; M62.81 Muscle weakness (generalized); M10.9 Gout, unspecified; K21.9 Gastro-esophageal reflux disease without esophagitis; F25.9 Schizoaffective disorder, unspecified; F41.9 Anxiety disorder, unspecified; J30.2 Other seasonal allergic rhinitis; R29.898 Other symptoms and signs involving the musculoskeletal system; Z72.0 Tobacco use
CPT/HCPCS: 36415; 70450-TC; 70496-TC; 80048; 80053; 80061; 81003; 82550; 82553; 82962; 83036; 84484; 85025; 85610; 85730; 86850; 86900; 86901; 87086; 93005; 93010; 93306-TC; 93880-TC; 96372; 96374; 96375; 97116-GP; 97161-GP; 99285-25; C9803-CS; G0378; U0003; U0005

== ENCOUNTER 2021-12-31 04:01 | Emergency (ER) | payer OTHER ==
[2021-12-31 04:23] VITALS: TEMP 98.1; BMI 30.7
[2021-12-31] MEDS ORDERED: ACETAMINOPHEN 1000 MG/100 ML BAG IVPB ONE (04:44)
[2021-12-31] MEDS ORDERED: ACETAMINOPHEN 500 MG TABLET (FP) PO ONE (04:50)
[2021-12-31] MEDS ORDERED: ACETAMINOPHEN 325 MG TABLET (FP) ONE (04:54)
[2021-12-31 06:14] VITALS: BP 130/70; PULSE 70; RESP 20
== END 2021-12-31 06:48 | disposition home or self-care (01) ==
LOC: JER 04:01
DX: M79.604 Pain in right leg (principal); M79.605 Pain in left leg; G89.29 Other chronic pain; Z11.52 Encounter for screening for COVID-19
CPT/HCPCS: 0241U-QW; 99283-25

== ENCOUNTER 2022-02-25 23:56 | Emergency (ER) | payer OTHER ==
[2022-02-25 23:59] VITALS: BMI 23.3
[2022-02-26 02:31] LABS: BASO % 0.6 % (0-2.0); HEMATOCRIT 35.6 % (35.4-49); HEMOGLOBIN 12.4 GM/dL (11.7-16.9); LYMPH % 25.3 % (8-40); MCH 31.6 pg (25.7-33.7); MCHC 34.9 g/dl (32.0-35.9); MEAN CELL VOLUME 90.6 fl (80-96); MEAN PLT VOLUME 7.5 fl (7.5-11.1); MONO % 14.4 % (3.8-10.2); NEUT % 57.7 % (42.8-82.8); PLATELET COUNT 115 10^3/uL (134-434); RBC 3.93 M/mm3 (4.00-5.60); RDW 14.2 % (11.9-15.9); WHITE BLOOD COUNT 4.3 K/mm3 (4.0-10.0)
[2022-02-26 02:50] LABS: CHLORIDE 120 mmol/L (98-107); SODIUM 146 mmol/L (136-145)
[2022-02-26 02:53] LABS: ALBUMIN 1.9 g/dl (3.4-5.0); BLOOD UREA NITROGEN 10.6 mg/dL (7-18); GLUCOSE,RANDOM 247 mg/dL (74-106)
[2022-02-26 02:56] LABS: CREATININE 0.4 mg/dL (0.55-1.3); SGOT/AST 40 U/L (15-37); SGPT/ALT 19 U/L (13-61)
[2022-02-26 02:57] LABS: BILIRUBIN,TOTAL 0.4 mg/dL (0.2-1)
[2022-02-26 02:58] LABS: TOT PROT 3.6 g/dl (6.4-8.2)
[2022-02-26 02:59] LABS: ALK PHOS 56 U/L (45-117)
[2022-02-26 03:03] LABS: ANION GAP 6 MMOL/L (8-16); CALCIUM 5.6 mg/dL (8.5-10.1); CO2 20 mmol/L (21-32)
[2022-02-26 03:10] LABS: LACTIC ACID 2.1 mmol/L (0.4-2.0)
[2022-02-26] MEDS ORDERED: GABAPENTIN 300 MG CAPSULE PO ONE (03:45)
[2022-02-26] MEDS ORDERED: risperiDONE 2 MG TABLET PO ONE (03:45)
[2022-02-26] MEDS ORDERED: CARBIDOPA/LEVODOPA 25/100 TABLET (FP) PO ONE (03:48)
[2022-02-26] MEDS ORDERED: GABAPENTIN 300 MG CAPSULE ONE (04:11)
[2022-02-26] MEDS ORDERED: CARBIDOPA/LEVODOPA 25/100 TABLET (FP) ONE (04:11)
[2022-02-26 06:21] LABS: BLOOD UREA NITROGEN 14.8 mg/dL (7-18)
[2022-02-26 06:24] LABS: CREATININE 0.6 mg/dL (0.55-1.3)
[2022-02-26 06:27] LABS: CALCIUM 8.5 mg/dL (8.5-10.1)
[2022-02-26 06:46] VITALS: BP 126/71; PULSE 71; RESP 20; TEMP 97.7
== END 2022-02-26 09:16 ==
LOC: JER 23:56
DX: M79.605 Pain in left leg (principal); E11.65 Type 2 diabetes mellitus with hyperglycemia
CPT/HCPCS: 0241U-QW; 36415; 80048; 80053; 82010; 82962; 83605; 85025; 99284-25

== ENCOUNTER 2022-03-02 23:49 | Emergency (ER) | payer OTHER ==
[2022-03-03 00:33] VITALS: BP 186/62; PULSE 92; RESP 17; TEMP 97.9; BMI 31.4
[2022-03-03] MEDS ORDERED: LIDOCAINE 5% TOPICAL PATCH TP ONE (00:58)
[2022-03-03] MEDS ORDERED: ACETAMINOPHEN 500 MG TABLET (FP) PO ONE (00:58)
[2022-03-03] MEDS ORDERED: LIDOCAINE 5% TOPICAL PATCH ONE (01:52)
[2022-03-03] MEDS ORDERED: ACETAMINOPHEN 325 MG TABLET (FP) ONE (01:52)
[2022-03-03] MEDS ORDERED: GABAPENTIN 300 MG CAPSULE ONE (02:14)
[2022-03-03] MEDS ORDERED: GABAPENTIN 300 MG CAPSULE PO ONE (02:14)
[2022-03-03] MEDS ORDERED: LIDOCAINE PATCH REMOVAL MC SCH (22:00)
== END 2022-03-03 02:37 ==
LOC: JER 23:49
DX: M54.50 Low back pain, unspecified (principal)
CPT/HCPCS: 72100-TC-FY; 99283-25

== ENCOUNTER 2022-03-08 22:50 | Emergency (ER) | payer OTHER ==
[~2022-03-08 22:50] MED LIST: LIDOCAINE PATCH REMOVAL MC SCH
[2022-03-08 23:18] VITALS: BP 136/65; PULSE 90; RESP 18; TEMP 97.7; BMI 31.4
[2022-03-08] MEDS ORDERED: LIDOCAINE 5% TOPICAL PATCH TP ONE (23:33)
[2022-03-08] MEDS ORDERED: LIDOCAINE 5% TOPICAL PATCH ONE (23:42)
== END 2022-03-09 00:47 | disposition home or self-care (01) ==
LOC: JER 22:50
DX: M79.2 Neuralgia and neuritis, unspecified (principal)
CPT/HCPCS: 99283-25

== ENCOUNTER 2022-03-19 23:22 | Emergency (ER) | payer OTHER ==
[2022-03-20] MEDS ORDERED: ACETAMINOPHEN 500 MG TABLET (FP) PO ONE (00:07)
[2022-03-20] MEDS ORDERED: LIDOCAINE 5% TOPICAL PATCH TP ONE (00:08)
[2022-03-20 00:12] VITALS: BP 112/69; PULSE 68; RESP 18; TEMP 97.9; BMI 33.0
[2022-03-20] MEDS ORDERED: ACETAMINOPHEN 500 MG TABLET (FP) ONE (00:15)
[2022-03-20] MEDS ORDERED: LIDOCAINE 5% TOPICAL PATCH ONE (00:17)
[2022-03-20 00:43] LABS: PH,URINE 7.5 (5.0-8.0); URINE APPEARANCE CLEAR; URINE BILIRUBIN NEGATIVE (NEGATIVE); URINE COLOR YELLOW; URINE GLUCOSE (UA) NEGATIVE (NEGATIVE); URINE KETONE NEGATIVE (NEGATIVE); URINE LEUK ESTERASE NEGATIVE (NEGATIVE); URINE NITRITE NEGATIVE (NEGATIVE); URINE PROTEIN NEGATIVE (NEGATIVE); URINE UROBILINOGEN 0.2 mg/dL (0.2-1.0)
[2022-03-20] MEDS ORDERED: METHOCARBAMOL 500 MG TABLET PO ONE (01:45)
[2022-03-20] MEDS ORDERED: METHOCARBAMOL 500 MG TABLET ONE (02:09)
[2022-03-20] MEDS ORDERED: METHOCARBAMOL 500 MG TABLET PO SCH (06:00)
[2022-03-20] MEDS ORDERED: LIDOCAINE PATCH REMOVAL MC SCH (22:00)
== END 2022-03-20 02:31 | disposition home or self-care (01) ==
LOC: JER 23:22
DX: M54.40 Lumbago with sciatica, unspecified side (principal)
CPT/HCPCS: 81003; 87086; 99283-25

== ENCOUNTER 2022-04-06 02:26 | Emergency (ER) | payer OTHER ==
[2022-04-06 02:48] VITALS: BP 139/88; PULSE 62; RESP 18; TEMP 97.6; BMI 33.0
[2022-04-06] MEDS ORDERED: oxyCODONE HCL 5 MG TABLET PO ONE (03:07)
[2022-04-06] MEDS ORDERED: oxyCODONE HCL 5 MG TABLET ONE (03:19)
== END 2022-04-06 05:27 | disposition home or self-care (01) ==
LOC: JER 02:26
DX: G89.4 Chronic pain syndrome (principal)
CPT/HCPCS: 99283-25

== ENCOUNTER 2022-04-29 10:07 | Emergency (ER) | payer OTHER ==
[2022-04-29 10:20] VITALS: BP 123/76; PULSE 119; RESP 20; TEMP 97.7; BMI 32.3
[2022-04-29] MEDS ORDERED: risperiDONE 1 MG TABLET PO ONE (11:32)
[2022-04-29] MEDS ORDERED: risperiDONE 0.5 MG TABLET ONE (11:37)
== END 2022-04-29 15:18 | disposition home or self-care (01) ==
LOC: JER 10:07
DX: F32.A Depression, unspecified (principal)
CPT/HCPCS: 99283-25; J2794

== ENCOUNTER 2022-06-24 12:31 | Emergency (ER) | payer OTHER ==
[2022-06-24 12:42] VITALS: RESP 20; BMI 32.7
[2022-06-24 12:45] VITALS: TEMP 98.4
[2022-06-24] MEDS ORDERED: SODIUM CHLORIDE 0.9% 500 ML INFUS.BAG IV ONE (13:11)
[2022-06-24 14:03] LABS: VENOUS BASE EXCESS 1.6 mmol/L (-2-2); VENOUS O2 SATURATION 92.8 % (70-80); VENOUS PCO2 42.8 mmHg (38-52); VENOUS PH 7.41 (7.310-7.410)
[2022-06-24 14:11] LABS: BASO % 0.4 % (0-2.0); EOS % 1.4 % (0-4.5); HEMATOCRIT 39.5 % (35.4-49); HEMOGLOBIN 13.5 GM/dL (11.7-16.9); LYMPH % 21.5 % (8-40); MCH 30.2 pg (25.7-33.7); MCHC 34.1 g/dl (32.0-35.9); MEAN CELL VOLUME 88.6 fl (80-96); MEAN PLT VOLUME 7.6 fl (7.5-11.1); MONO % 10.5 % (3.8-10.2); NEUT % 66.2 % (42.8-82.8); PLATELET COUNT 187 10^3/uL (134-434); RBC 4.46 M/mm3 (4.00-5.60); RDW 14.7 % (11.9-15.9); WHITE BLOOD COUNT 8.1 K/mm3 (4.0-10.0)
[2022-06-24 14:57] LABS: ALBUMIN 3.3 g/dl (3.4-5.0); BLOOD UREA NITROGEN 10.1 mg/dL (7-18); MAGNESIUM 1.6 mg/dL (1.8-2.4)
[2022-06-24 15:00] LABS: CREATININE 0.8 mg/dL (0.55-1.3); PHOSPHOROUS 3.3 mg/dL (2.5-4.9)
[2022-06-24 15:02] LABS: BILIRUBIN,TOTAL 0.9 mg/dL (0.2-1); TOT PROT 6.1 g/dl (6.4-8.2)
[2022-06-24 15:33] VITALS: BP 121/75; PULSE 93
[2022-06-24] MEDS ORDERED: INSULIN (LEVEMIR) 100 UNITS/ML UNITS SQ ONE ×2 (16:54→16:58)
[2022-06-24 17:05] LABS: EPI CELLS 0 /uL (0-25.1); HYALINE CASTS 1 /uL (0-3.1); URINE APPEARANCE CLOUDY; URINE BACTERIA 11 /uL (0-1359); URINE BILIRUBIN NEGATIVE (NEGATIVE); URINE COLOR YELLOW; URINE GLUCOSE (UA) 2+ (NEGATIVE); URINE KETONE NEGATIVE (NEGATIVE); URINE LEUK ESTERASE 2+ (NEGATIVE); URINE NITRITE NEGATIVE (NEGATIVE); URINE PROTEIN NEGATIVE (NEGATIVE); URINE RBC 7 /uL (0-23.9); URINE UROBILINOGEN 0.2 mg/dL (0.2-1.0); URINE WBC 622 /uL (0-25.8)
== END 2022-06-24 18:14 | disposition home or self-care (01) ==
LOC: JER 12:31
DX: R73.9 Hyperglycemia, unspecified (principal); N39.0 Urinary tract infection, site not specified; E86.0 Dehydration
CPT/HCPCS: 0241U-QW; 36415; 71046-TC-FY; 80053; 81003; 82010; 82803; 82962; 83735; 84100; 85025; 93005; 93010; 99284-25

== ENCOUNTER 2022-08-15 13:26 | Inpatient (IN) | payer OTHER ==
[2022-08-15] MEDS ORDERED: ACETAMINOPHEN 1000 MG/100 ML BAG IVPB ONE (15:26)
[2022-08-15] MEDS ORDERED: ACETAMINOPHEN INJECTION 100 ML IVPB ONE (16:20)
[2022-08-15 17:43] LABS: BASO % 0.3 % (0-2.0); EOS % 2.9 % (0-4.5); HEMATOCRIT 39.2 % (35.4-49); LYMPH % 28.4 % (8-40); MCHC 33.2 g/dl (32.0-35.9); MEAN CELL VOLUME 87.4 fl (80-96); MONO % 10.5 % (3.8-10.2); NEUT % 57.9 % (42.8-82.8); PLATELET COUNT 208 10^3/uL (134-434); RBC 4.48 M/mm3 (4.00-5.60); WHITE BLOOD COUNT 8.2 K/mm3 (4.0-10.0)
[2022-08-15 17:49] LABS: INR 1.23 (0.83-1.09); PROTHROMBIN TIME (PATIENT) 14.2 SEC (9.7-13.0)
[2022-08-15 17:52] LABS: ACTIVATED PTT 28.4 SECONDS (25.2-36.5)
[2022-08-15 17:54] LABS: MAGNESIUM 1.7 mg/dL (1.8-2.4)
[2022-08-15 17:56] LABS: ALBUMIN 3.2 g/dl (3.4-5.0); BLOOD UREA NITROGEN 11.3 mg/dL (7-18); CALCIUM 9.3 mg/dL (8.5-10.1)
[2022-08-15 17:58] LABS: PHOSPHOROUS 3.5 mg/dL (2.5-4.9)
[2022-08-15 17:59] LABS: CREATININE 0.7 mg/dL (0.55-1.3)
[2022-08-15 18:01] LABS: BILIRUBIN,TOTAL 0.8 mg/dL (0.2-1); TOT PROT 6.3 g/dl (6.4-8.2)
[2022-08-15] MEDS ORDERED: MAGNESIUM SULF 50% (8.12 MEQ/2 ML-1 GM VIAL) IVPB ONE (20:25)
[2022-08-15] MEDS ORDERED: MAGNESIUM 1GM/D5W - 1 GM/100 ML IVPB IVPB ONE (23:56)
[2022-08-16 07:05] LABS: BASO % 0.4 % (0-2.0); EOS % 3.9 % (0-4.5); HEMATOCRIT 39.4 % (35.4-49); HEMOGLOBIN 13.3 GM/dL (11.7-16.9); LYMPH % 30.1 % (8-40); MCHC 33.8 g/dl (32.0-35.9); MEAN CELL VOLUME 88.7 fl (80-96); MEAN PLT VOLUME 6.9 fl (7.5-11.1); MONO % 10.2 % (3.8-10.2); NEUT % 55.4 % (42.8-82.8); PLATELET COUNT 188 10^3/uL (134-434); RBC 4.44 M/mm3 (4.00-5.60)
[2022-08-16 07:40] LABS: CALCIUM 8.8 mg/dL (8.5-10.1)
[2022-08-16 07:41] LABS: BLOOD UREA NITROGEN 10.2 mg/dL (7-18)
[2022-08-16 07:44] LABS: CREATININE 0.7 mg/dL (0.55-1.3)
[2022-08-16] MEDS ORDERED: amLODIPine BESYLATE 2.5 MG TABLET (FP) ONE (08:13)
[2022-08-16] MEDS ORDERED: CARBIDOPA/LEVODOPA 25/100 TABLET (FP) ONE ×2 (08:13→08:14)
[2022-08-16] MEDS ORDERED: LOSARTAN POTASSIUM 25 MG TABLET ONE (08:13)
[2022-08-16] MEDS ORDERED: LIDOCAINE 5% TOPICAL PATCH ONE (08:13)
[2022-08-16] MEDS ORDERED: DIVALPROEX SODIUM 500 MG TABLET E.C. ONE (08:13)
[2022-08-16 09:00] LABS: PH,URINE 6.5 (5.0-8.0); URINE APPEARANCE CLEAR; URINE BILIRUBIN NEGATIVE (NEGATIVE); URINE COLOR YELLOW; URINE GLUCOSE (UA) TRACE (NEGATIVE); URINE KETONE NEGATIVE (NEGATIVE); URINE LEUK ESTERASE NEGATIVE (NEGATIVE); URINE NITRITE NEGATIVE (NEGATIVE); URINE PROTEIN NEGATIVE (NEGATIVE); URINE UROBILINOGEN 0.2 mg/dL (0.2-1.0)
[2022-08-16] MEDS: DIVALPROEX SODIUM 500 MG TABLET E.C. PO SCH ×2 (10:54→22:15)
[2022-08-16] MEDS ORDERED: LOSARTAN POTASSIUM 50 MG TABLET ONE (10:54)
[2022-08-16] MEDS: LOSARTAN POTASSIUM 25 MG TABLET PO SCH (10:54)
[2022-08-16] MEDS: LIDOCAINE 5% TOPICAL PATCH TP SCH (10:55)
[2022-08-16] MEDS: ALLOPURINOL 300 MG TABLET (FP) PO SCH (10:55)
[2022-08-16] MEDS: amLODIPine BESYLATE 2.5 MG TABLET (FP) PO SCH (10:55)
[2022-08-16] MEDS: INSULIN SLIDING SCALE (NOVOLOG) 1 VIAL SQ SCH (17:49)
[2022-08-16] MEDS ORDERED: ACETAMINOPHEN 325 MG TABLET (FP) PO ONE (20:35)
[2022-08-16] MEDS ORDERED: ACETAMINOPHEN 325 MG TABLET (FP) ONE (20:47)
[2022-08-16] MEDS: ATORVASTATIN CA 80 MG TABLET (FP) PO SCH (22:15)
[2022-08-16] MEDS: MELATONIN 5 MG TABLETS PO SCH (22:15)
[2022-08-16] MEDS: LIDOCAINE PATCH REMOVAL MC SCH (22:16)
[2022-08-16] MEDS: LATANOPROST 0.005% OPHTH SOLN 2.5ML BOTTLE OU SCH (22:58)
[2022-08-17 03:22] VITALS: BMI 35.8
[2022-08-17] MEDS: INSULIN SLIDING SCALE (NOVOLOG) 1 VIAL SQ SCH ×3 (06:24→17:45)
[2022-08-17] MEDS: LIDOCAINE 5% TOPICAL PATCH TP SCH (10:18)
[2022-08-17] MEDS: LOSARTAN POTASSIUM 25 MG TABLET PO SCH (10:18)
[2022-08-17] MEDS: ALLOPURINOL 300 MG TABLET (FP) PO SCH (10:18)
[2022-08-17] MEDS: amLODIPine BESYLATE 2.5 MG TABLET (FP) PO SCH (10:18)
[2022-08-17] MEDS: DIVALPROEX SODIUM 500 MG TABLET E.C. PO SCH ×2 (10:18→21:20)
[2022-08-17] MEDS ORDERED: ONDANSETRON 4 MG/2 ML VIAL IVPUSH PRN (17:49)
[2022-08-17] MEDS: MELATONIN 5 MG TABLETS PO SCH (21:20)
[2022-08-17] MEDS: ATORVASTATIN CA 80 MG TABLET (FP) PO SCH (21:20)
[2022-08-17] MEDS: LIDOCAINE PATCH REMOVAL MC SCH (21:20)
[2022-08-17] MEDS: LATANOPROST 0.005% OPHTH SOLN 2.5ML BOTTLE OU SCH (21:20)
[2022-08-18] MEDS: INSULIN SLIDING SCALE (NOVOLOG) 1 VIAL SQ SCH ×3 (06:20→17:44)
[2022-08-18] MEDS: ALLOPURINOL 300 MG TABLET (FP) PO SCH (10:43)
[2022-08-18] MEDS: LOSARTAN POTASSIUM 25 MG TABLET PO SCH (10:43)
[2022-08-18] MEDS: amLODIPine BESYLATE 2.5 MG TABLET (FP) PO SCH (10:43)
[2022-08-18] MEDS: LIDOCAINE 5% TOPICAL PATCH TP SCH (10:44)
[2022-08-18] MEDS: DIVALPROEX SODIUM 500 MG TABLET E.C. PO SCH ×2 (10:44→21:09)
[2022-08-18] MEDS: INSULIN (LEVEMIR) 100 UNITS/ML UNITS SQ SCH (10:49)
[2022-08-18 11:13] LABS: BASO % 0.5 % (0-2.0); EOS % 1.8 % (0-4.5); HEMATOCRIT 39.1 % (35.4-49); HEMOGLOBIN 13.5 GM/dL (11.7-16.9); MCH 30.2 pg (25.7-33.7); MCHC 34.6 g/dl (32.0-35.9); MEAN CELL VOLUME 87.4 fl (80-96); MEAN PLT VOLUME 7.1 fl (7.5-11.1); MONO % 9.6 % (3.8-10.2); NEUT % 63.1 % (42.8-82.8); PLATELET COUNT 182 10^3/uL (134-434); RBC 4.47 M/mm3 (4.00-5.60); RDW 13.9 % (11.9-15.9); WHITE BLOOD COUNT 5.6 K/mm3 (4.0-10.0)
[2022-08-18 11:34] LABS: BLOOD UREA NITROGEN 10.7 mg/dL (7-18); CALCIUM 8.6 mg/dL (8.5-10.1)
[2022-08-18 11:38] LABS: CREATININE 0.7 mg/dL (0.55-1.3)
[2022-08-18 11:39] LABS: BILIRUBIN,TOTAL 0.8 mg/dL (0.2-1); TOT PROT 6.1 g/dl (6.4-8.2)
[2022-08-18] MEDS: ATORVASTATIN CA 80 MG TABLET (FP) PO SCH (21:09)
[2022-08-18] MEDS: MELATONIN 5 MG TABLETS PO SCH (21:09)
[2022-08-18] MEDS: LIDOCAINE PATCH REMOVAL MC SCH (21:09)
[2022-08-18] MEDS: LATANOPROST 0.005% OPHTH SOLN 2.5ML BOTTLE OU SCH (21:10)
[2022-08-19] MEDS: INSULIN SLIDING SCALE (NOVOLOG) 1 VIAL SQ SCH ×3 (06:21→16:41)
[2022-08-19] MEDS: amLODIPine BESYLATE 2.5 MG TABLET (FP) PO SCH (11:18)
[2022-08-19] MEDS: LOSARTAN POTASSIUM 25 MG TABLET PO SCH (11:18)
[2022-08-19] MEDS: ALLOPURINOL 300 MG TABLET (FP) PO SCH (11:18)
[2022-08-19] MEDS: DIVALPROEX SODIUM 500 MG TABLET E.C. PO SCH ×2 (11:18→21:08)
[2022-08-19] MEDS: LIDOCAINE 5% TOPICAL PATCH TP SCH (11:18)
[2022-08-19] MEDS: INSULIN (LEVEMIR) 100 UNITS/ML UNITS SQ SCH (11:19)
[2022-08-19] MEDS: POLYETHYLENE GLYCOL (HEALTHYLAX) 3350 17 GM PACKET PO SCH ×2 (11:19→11:21)
[2022-08-19] MEDS ORDERED: INSULIN (LEVEMIR) 100 UNITS/ML UNITS SQ ONE (13:46)
[2022-08-19 18:19] VITALS: RESP 18
[2022-08-19] MEDS: ATORVASTATIN CA 80 MG TABLET (FP) PO SCH (21:07)
[2022-08-19] MEDS: LIDOCAINE PATCH REMOVAL MC SCH (21:08)
[2022-08-19] MEDS: MELATONIN 5 MG TABLETS PO SCH (21:08)
[2022-08-19] MEDS: LATANOPROST 0.005% OPHTH SOLN 2.5ML BOTTLE OU SCH (21:08)
[2022-08-19] MEDS ORDERED: risperiDONE 1 MG TABLET PO SCH (22:00)
[2022-08-20] MEDS: INSULIN SLIDING SCALE (NOVOLOG) 1 VIAL SQ SCH ×3 (06:12→15:45)
[2022-08-20 07:05] VITALS: TEMP 98.6
[2022-08-20] MEDS: LOSARTAN POTASSIUM 25 MG TABLET PO SCH (10:45)
[2022-08-20] MEDS: DIVALPROEX SODIUM 500 MG TABLET E.C. PO SCH (10:46)
[2022-08-20] MEDS: ALLOPURINOL 300 MG TABLET (FP) PO SCH (10:47)
[2022-08-20] MEDS: amLODIPine BESYLATE 2.5 MG TABLET (FP) PO SCH (10:47)
[2022-08-20] MEDS: INSULIN (LEVEMIR) 100 UNITS/ML UNITS SQ SCH (10:47)
[2022-08-20] MEDS: LIDOCAINE 5% TOPICAL PATCH TP SCH (10:47)
[2022-08-20] MEDS: POLYETHYLENE GLYCOL (HEALTHYLAX) 3350 17 GM PACKET PO SCH (10:52)
[2022-08-20 14:51] VITALS: BP 145/84; PULSE 110
== END 2022-08-20 16:38 | disposition home or self-care (01) | DRG 57 ==
LOC: JER 13:26 → JERBED 19:19 → J5S 08-16 22:09 → OBSVTOIN 08-17 15:48 → J5S 08-17 22:35
PROVIDERS: ADMIT Internal Medicine; ATTEND Internal Medicine
DX: G20 Parkinson's disease (principal); K86.1 Other chronic pancreatitis; E78.5 Hyperlipidemia, unspecified; E11.9 Type 2 diabetes mellitus without complications; F25.9 Schizoaffective disorder, unspecified; K21.9 Gastro-esophageal reflux disease without esophagitis; F41.8 Other specified anxiety disorders; M25.562 Pain in left knee; M25.561 Pain in right knee; E66.9 Obesity, unspecified; Z68.35 Body mass index [BMI] 35.0-35.9, adult; R26.2 Difficulty in walking, not elsewhere classified; G25.81 Restless legs syndrome; K74.60 Unspecified cirrhosis of liver; R16.1 Splenomegaly, not elsewhere classified; I11.0 Hypertensive heart disease with heart failure; I50.9 Heart failure, unspecified; G62.9 Polyneuropathy, unspecified; S81.012A Laceration without foreign body, left knee, initial encounter; S81.011A Laceration without foreign body, right knee, initial encounter; K86.89 Other specified diseases of pancreas; W18.39XA Other fall on same level, initial encounter; Y92.098 Other place in other non-institutional residence as the place of occurrence of the external cause; Z86.73 Personal history of transient ischemic attack (TIA), and cerebral infarction without residual deficits
CPT/HCPCS: 0241U-QW; 36415; 71045-TC-FY; 73562-TC-LT-FY; 73562-TC-RT-FY; 74177-TC; 80048; 80053; 81003; 82962; 83690; 83735; 84100; 84484; 85025; 85610; 85730; 86704; 86708; 86803; 87086; 87340; 87517; 93005; 93010; 97116-GP; 97162-GP; 99285-25; G0378; Q9967

== ENCOUNTER 2024-11-27 22:05 | Inpatient (IN) | payer OTHER ==
[2024-11-27] MEDS ORDERED: MAGNESIUM SULFATE IN WATER 2 GM/50 ML IVPB IVPB ONE (22:18)
[2024-11-27] MEDS ORDERED: dilTIAZem HCL 125 MG/25 ML - 25 ML VIAL ONE ×2 (22:18→23:05)
[2024-11-27] MEDS: dilTIAZem HCL 50 MG/10 ML - 10 ML VIAL IVPUSH ONE ×2 (22:20→23:11)
[2024-11-27 22:50] LABS: BG HCT 40.0 % (35.4-49); VENOUS BASE EXCESS -5.2 mmol/L (-2-2); VENOUS O2 SATURATION 75.3 % (70-80); VENOUS PCO2 29.9 mmHg (38-52); VENOUS PH 7.404 (7.310-7.410)
[2024-11-27 22:51] LABS: ABSOLUTE IMMATURE GRANULOCYTES 0.10 x10^3/uL (0.0-0.031); BASOPHILS # 0.02 x10^3/uL (0.01-0.08); EOSINOPHIL % 0.0 % (0.8-7.0); EOSINOPHILS # 0.00 x10^3/uL (0.04-0.54); MCHC 33.7 g/dl (32.3-36.5); MEAN CELL VOLUME 86.4 fl (79.0-92.2); MEAN PLT VOLUME 8.8 fl (9.4-12.4); MONOCYTE # 1.22 x10^3/uL (0.30-0.82); MONOCYTE % 9.1 % (5.3-12.2); RDW 13.5 % (12.2-16.4)
[2024-11-27 23:02] LABS: INR 1.39 (0.83-1.09); PROTHROMBIN TIME (PATIENT) 15.2 SEC (9.7-13.0)
[2024-11-27] MEDS: MAGNESIUM SULFATE IN WATER 2 GM/50 ML IVPB IVPB ONE (23:03)
[2024-11-27] MEDS: LACTATED RINGERS SOLUTION 1000 ML INFUS.BAG IV ONE (23:11)
[2024-11-27 23:16] LABS: CO2 22 mmol/L (21-32)
[2024-11-27 23:19] LABS: CREATININE 1.0 mg/dL (0.55-1.3); GLUCOSE,RANDOM 463 mg/dL (74-106); SGOT/AST 11 U/L (15-37); SGPT/ALT 25 U/L (13-61)
[2024-11-27 23:20] LABS: TOT PROT 6.1 g/dl (6.4-8.2)
[2024-11-27 23:22] LABS: ALK PHOS 118 U/L (45-117)
[2024-11-27 23:24] LABS: N-TERMINAL BNP 2098.8 pg/ml (5-125)
[2024-11-28] MEDS ORDERED: INSULIN REGULAR HUMAN 100 UNITS/ML *VIAL ONE (01:06)
[2024-11-28] MEDS: INSULIN (NOVOLOG) ASPART 100 UNITS/ML 10ML VIAL SQ ONE ×2 (01:12→12:43)
[2024-11-28 04:55] VITALS: BMI 28.7
[2024-11-28] MEDS: LACTATED RINGERS SOLUTION 1,000 ML/1,000 ML INFUS.BAG IV SCH ×2 (05:46→13:26)
[2024-11-28] MEDS: ACETAMINOPHEN 1000 MG/100 ML BAG IVPB PRN (05:57)
[2024-11-28] MEDS: PIPERACILLIN/TAZOB 3.375 GM 3.375 GM in DEXTROSE 5%-WATER - 50 ML IVPB SCH ×3 (06:07→18:11)
[2024-11-28] MEDS ORDERED: VANCOMYCIN PREMIX 1.5 GM 1,500 MG/300 ML BAG IVPB ONE (06:30)
[2024-11-28 06:35] LABS: MCHC 33.8 g/dl (32.3-36.5); MEAN CELL VOLUME 86.5 fl (79.0-92.2); MEAN PLT VOLUME 9.1 fl (9.4-12.4); RDW 13.7 % (12.2-16.4)
[2024-11-28 06:40] LABS: EPI CELLS 10 /uL (0-25.1); HYALINE CASTS 0 /uL (0-3.1); URINE APPEARANCE CLEAR; URINE BACTERIA 7 /uL (0-1359); URINE BILIRUBIN NEGATIVE (NEGATIVE); URINE COLOR YELLOW; URINE GLUCOSE (UA) 3+ (NEGATIVE); URINE KETONE 1+ (NEGATIVE); URINE LEUK ESTERASE TRACE (NEGATIVE); URINE NITRITE NEGATIVE (NEGATIVE); URINE PROTEIN NEGATIVE (NEGATIVE); URINE UROBILINOGEN 1.0 mg/dL (0.2-1.0); URINE WBC 378 /uL (0-25.8)
[2024-11-28] MEDS: INSULIN GLARGINE (LANTUS) 100 UNITS/ML UNITS SQ SCH ×2 (06:48→21:56)
[2024-11-28] MEDS: VANCOMYCIN/WATER FOR INJ (PEG) 1,000 MG/200 ML BAG IVPB ONE (06:48)
[2024-11-28] MEDS: INSULIN (NOVOLOG) ASPART 100 UNITS/ML 10ML VIAL SQ SCH (06:50)
[2024-11-28 07:00] LABS: SGOT/AST 11 U/L (15-37); SGPT/ALT 23 U/L (13-61)
[2024-11-28] MEDS ORDERED: INSULIN (NOVOLOG) ASPART 100 UNITS/ML 10ML VIAL SQ SCH (07:00)
[2024-11-28] MEDS ORDERED: INSULIN GLARGINE (LANTUS) 100 UNITS/ML UNITS SQ SCH ×2 (07:00)
[2024-11-28] MEDS ORDERED: INSULIN ASPART SLIDING SCALE (NOVOLOG) 1 VIAL SQ SCH (07:00)
[2024-11-28 07:01] LABS: TOT PROT 5.8 g/dl (6.4-8.2)
[2024-11-28 07:02] LABS: ALK PHOS 107 U/L (45-117)
[2024-11-28 07:07] LABS: CO2 26 mmol/L (21-32)
[2024-11-28 07:09] LABS: CREATININE 0.7 mg/dL (0.55-1.3)
[2024-11-28 07:22] LABS: GLUCOSE,RANDOM 401 mg/dL (74-106)
[2024-11-28] MEDS: TAMSULOSIN HCL 0.4 MG CAP PO SCH (09:35)
[2024-11-28] MEDS: LISINOPRIL 5 MG TABLET PO SCH (09:35)
[2024-11-28] MEDS: LACTULOSE 20 GM/30 ML UDC (FOR ORAL USE ONLY) PO SCH (09:35)
[2024-11-28] MEDS: APIXABAN 5 MG TABLET PO SCH (09:35)
[2024-11-28] MEDS: CHOLECALCIFEROL (VIT D3) 1,000 UNIT (25 MCG) TABLET PO SCH (09:43)
[2024-11-28] MEDS ORDERED: glipiZIDE 5 MG TABLET (FP) PO SCH (10:00)
[2024-11-28] MEDS ORDERED: ENOXAPARIN NA (PORCINE) 40 MG/0.4 ML DISP.SYRIN SQ SCH (10:00)
[2024-11-28 10:15] LABS: ERYTHROCYTE SEDIMENTATION RATE 24 mm/hr (0-20)
[2024-11-28 10:36] LABS: URINE RBC 86 /uL (0-23.9)
[2024-11-28 10:38] LABS: YEAST PRESENT (NEGATIVE)
[2024-11-28] MEDS: dilTIAZem HCL 25 MG/5 ML - 5 ML VIAL IVPUSH ONE (12:41)
[2024-11-28] MEDS: INSULIN ASPART SLIDING SCALE (NOVOLOG) 1 VIAL SQ SCH (16:10)
[2024-11-28] MEDS ORDERED: PIPERACILLIN/TAZOBACTAM 3.375 GM VIAL IVPB ONE (17:44)
[2024-11-28] MEDS: MELATONIN 5 MG TABLETS PO SCH (21:55)
[2024-11-28] MEDS: PRAMIPEXOLE DIHYDROCHLORIDE 0.25 MG TABLET PO SCH (21:56)
[2024-11-28] MEDS: ATORVASTATIN CA 40 MG TABLET (FP) PO SCH (21:56)
[2024-11-28] MEDS: MIRTAZAPINE 15 MG TABLET (FP) PO SCH (21:56)
[2024-11-28] MEDS: LATANOPROST 0.005% OPHTH SOLN 2.5ML BOTTLE OU SCH (23:00)
[2024-11-29 07:44] LABS: CO2 26.0 mmol/L (21-32); GLUCOSE,RANDOM 319.0 mg/dL (74-106)
[2024-11-29 07:47] LABS: CREATININE 0.6 mg/dL (0.55-1.3); SGOT/AST 18.0 U/L (15-37); SGPT/ALT 29.0 U/L (13-61)
[2024-11-29 07:48] LABS: ABSOLUTE IMMATURE GRANULOCYTES 0.07 x10^3/uL (0.0-0.031); BASOPHILS # 0.01 x10^3/uL (0.01-0.08); EOSINOPHIL % 0.3 % (0.8-7.0); EOSINOPHILS # 0.02 x10^3/uL (0.04-0.54); MCHC 34.1 g/dl (32.3-36.5); MEAN CELL VOLUME 86.3 fl (79.0-92.2); MEAN PLT VOLUME 9.3 fl (9.4-12.4); MONOCYTE # 0.74 x10^3/uL (0.30-0.82); MONOCYTE % 9.7 % (5.3-12.2); RDW 13.4 % (12.2-16.4)
[2024-11-29 07:49] LABS: TOT PROT 5.4 g/dl (6.4-8.2)
[2024-11-29 07:50] LABS: ALK PHOS 108.0 U/L (45-117)
[2024-11-29] MEDS: MULTIVITAMINS (DAILY MVI) TABLET (FP) PO SCH (09:16)
[2024-11-29] MEDS: ASCORBIC ACID 500 MG TABLET (FP) PO SCH (09:16)
[2024-11-29] MEDS: VANCOMYCIN/WATER 1250 MG 1,250 MG/250 ML BAG IVPB ONE (16:40)
[2024-11-30 07:52] LABS: ABSOLUTE IMMATURE GRANULOCYTES 0.06 x10^3/uL (0.0-0.031); BASOPHILS # 0.02 x10^3/uL (0.01-0.08); EOSINOPHIL % 0.5 % (0.8-7.0); EOSINOPHILS # 0.04 x10^3/uL (0.04-0.54); MCHC 33.2 g/dl (32.3-36.5); MEAN CELL VOLUME 86.4 fl (79.0-92.2); MEAN PLT VOLUME 9.6 fl (9.4-12.4); MONOCYTE # 0.69 x10^3/uL (0.30-0.82); MONOCYTE % 9.1 % (5.3-12.2); RDW 13.4 % (12.2-16.4)
[2024-11-30 08:15] LABS: CO2 27.0 mmol/L (21-32); GLUCOSE,RANDOM 327.0 mg/dL (74-106)
[2024-11-30 08:18] LABS: CREATININE 0.7 mg/dL (0.55-1.3)
[2024-11-30] MEDS: VANCOMYCIN 1 GM PREMIX (F) 1 GM/200 ML BAG IVPB SCH (15:53)
[2024-12-01] MEDS: INSULIN GLARGINE (LANTUS) 100 UNITS/ML UNITS SQ SCH (21:20)
[2024-12-02] MEDS: VANCOMYCIN/WATER FOR INJ (PEG) 1,000 MG/200 ML BAG IVPB SCH (04:41)
[2024-12-02 06:50] LABS: ABSOLUTE IMMATURE GRANULOCYTES 0.06 x10^3/uL (0.0-0.031); BASOPHILS # 0.02 x10^3/uL (0.01-0.08); EOSINOPHIL % 1.3 % (0.8-7.0); EOSINOPHILS # 0.10 x10^3/uL (0.04-0.54); MCHC 33.6 g/dl (32.3-36.5); MEAN CELL VOLUME 86.8 fl (79.0-92.2); MEAN PLT VOLUME 9.1 fl (9.4-12.4); MONOCYTE # 0.60 x10^3/uL (0.30-0.82); MONOCYTE % 7.9 % (5.3-12.2); RDW 13.6 % (12.2-16.4)
[2024-12-02 07:16] LABS: CO2 26.0 mmol/L (21-32); GLUCOSE,RANDOM 351.0 mg/dL (74-106)
[2024-12-02 07:19] LABS: CREATININE 0.6 mg/dL (0.55-1.3); SGOT/AST 14.0 U/L (15-37); SGPT/ALT 27.0 U/L (13-61)
[2024-12-02 07:20] LABS: TOT PROT 5.3 g/dl (6.4-8.2)
[2024-12-02 07:22] LABS: ALK PHOS 109.0 U/L (45-117)
[2024-12-02] MEDS: INSULIN GLARGINE (LANTUS) 100 UNITS/ML UNITS SQ SCH (21:42)
[2024-12-03 07:35] LABS: ABSOLUTE IMMATURE GRANULOCYTES 0.09 x10^3/uL (0.0-0.031); BASOPHILS # 0.03 x10^3/uL (0.01-0.08); EOSINOPHIL % 2.2 % (0.8-7.0); EOSINOPHILS # 0.17 x10^3/uL (0.04-0.54); MCHC 33.2 g/dl (32.3-36.5); MEAN CELL VOLUME 87.4 fl (79.0-92.2); MEAN PLT VOLUME 9.5 fl (9.4-12.4); MONOCYTE # 0.56 x10^3/uL (0.30-0.82); MONOCYTE % 7.4 % (5.3-12.2); RDW 13.7 % (12.2-16.4)
[2024-12-03 08:11] LABS: CO2 32.0 mmol/L (21-32); GLUCOSE,RANDOM 338.0 mg/dL (74-106)
[2024-12-03 08:14] LABS: CREATININE 0.7 mg/dL (0.55-1.3); SGOT/AST 17.0 U/L (15-37); SGPT/ALT 29.0 U/L (13-61)
[2024-12-03 08:15] LABS: TOT PROT 5.2 g/dl (6.4-8.2)
[2024-12-03 08:17] LABS: ALK PHOS 109.0 U/L (45-117)
[2024-12-03] MEDS ORDERED: GENTAMICIN SO4 80 MG/2 ML VIAL ONE (13:29)
[2024-12-03] MEDS ORDERED: BUPIVACAINE HCL/PF 0.25% (2.5MG/ML) 10 ML VIAL ONE (13:30)
[2024-12-03] MEDS ORDERED: PROPOFOL 20 ML ONE (13:36)
[2024-12-03] MEDS ORDERED: MIDAZOLAM HCL 2 MG/2 ML SINGLE DOSE VIAL ONE (13:37)
[2024-12-03] MEDS ORDERED: KETAMINE HCL 200 MG/20 ML VIAL ONE (13:58)
[2024-12-03] MEDS ORDERED: ONDANSETRON 4 MG/2 ML VIAL ONE (14:30)
[2024-12-03] MEDS ORDERED: ONDANSETRON 4 MG/2 ML VIAL IVPUSH PRN (14:43)
[2024-12-03] MEDS: VANCOMYCIN/WATER FOR INJ (PEG) 1,000 MG/200 ML BAG IVPB SCH (15:53)
[2024-12-03] MEDS: LACTATED RINGERS SOLUTION 1,000 ML IV SCH (15:59)
[2024-12-03] MEDS: INSULIN ASPART SLIDING SCALE (NOVOLOG) 1 VIAL SQ SCH (17:10)
[2024-12-03] MEDS: PIPERACILLIN/TAZOB 4.5 GM 4.5 GM in DEXTROSE 5%-WATER 100 ML IVPB SCH ×2 (17:13→17:15)
[2024-12-03] MEDS ORDERED: INSULIN GLARGINE (LANTUS) 100 UNITS/ML UNITS SQ SCH (22:00)
[2024-12-03] MEDS: MIRTAZAPINE 15 MG TABLET (FP) PO SCH (22:22)
[2024-12-03] MEDS: PRAMIPEXOLE DIHYDROCHLORIDE 0.25 MG TABLET PO SCH (22:22)
[2024-12-03] MEDS: MELATONIN 5 MG TABLETS PO SCH (22:22)
[2024-12-03] MEDS: APIXABAN 5 MG TABLET PO SCH (22:22)
[2024-12-03] MEDS: ATORVASTATIN CA 40 MG TABLET (FP) PO SCH (22:22)
[2024-12-03] MEDS: LATANOPROST 0.005% OPHTH SOLN 2.5ML BOTTLE OU SCH (22:23)
[2024-12-03] MEDS: ASCORBIC ACID 500 MG TABLET (FP) PO SCH (22:23)
[2024-12-03] MEDS: INSULIN GLARGINE (LANTUS) 100 UNITS/ML UNITS SQ SCH (22:23)
[2024-12-04 08:44] LABS: ABSOLUTE IMMATURE GRANULOCYTES 0.14 x10^3/uL (0.0-0.031); BASOPHILS # 0.03 x10^3/uL (0.01-0.08); EOSINOPHIL % 1.8 % (0.8-7.0); EOSINOPHILS # 0.16 x10^3/uL (0.04-0.54); MCHC 32.3 g/dl (32.3-36.5); MEAN CELL VOLUME 89.6 fl (79.0-92.2); MEAN PLT VOLUME 9.4 fl (9.4-12.4); MONOCYTE # 0.58 x10^3/uL (0.30-0.82); MONOCYTE % 6.5 % (5.3-12.2); RDW 14.1 % (12.2-16.4)
[2024-12-04 09:07] LABS: GLUCOSE,RANDOM 341.0 mg/dL (74-106)
[2024-12-04 09:09] LABS: CO2 30.0 mmol/L (21-32)
[2024-12-04 09:11] LABS: CREATININE 0.7 mg/dL (0.55-1.3); SGPT/ALT 29.0 U/L (13-61)
[2024-12-04 09:12] LABS: SGOT/AST 16.0 U/L (15-37)
[2024-12-04 09:13] LABS: TOT PROT 5.3 g/dl (6.4-8.2)
[2024-12-04 09:14] LABS: ALK PHOS 101.0 U/L (45-117)
[2024-12-04] MEDS: TAMSULOSIN HCL 0.4 MG CAP PO SCH (10:05)
[2024-12-04] MEDS: CHOLECALCIFEROL (VIT D3) 1,000 UNIT (25 MCG) TABLET PO SCH (10:06)
[2024-12-04] MEDS: LISINOPRIL 5 MG TABLET PO SCH (10:06)
[2024-12-04] MEDS: LACTULOSE 20 GM/30 ML UDC (FOR ORAL USE ONLY) PO SCH (10:08)
[2024-12-04] MEDS: MULTIVITAMINS (DAILY MVI) TABLET (FP) PO SCH (10:08)
[2024-12-04] MEDS: ACETAMINOPHEN 1000 MG/100 ML BAG IVPB PRN (13:13)
[2024-12-04] MEDS: DOXYCYCLINE HYCLATE 100 MG CAPSULE PO SCH (18:34)
[2024-12-04] MEDS ORDERED: PIPERACILLIN/TAZOBACTAM 4.5 GM VIAL IVPB ONE (21:05)
[2024-12-04] MEDS: INSULIN GLARGINE (LANTUS) 100 UNITS/ML UNITS SQ SCH (21:44)
[2024-12-05] MEDS ORDERED: INSULIN ASPART SLIDING SCALE (NOVOLOG) 1 VIAL SQ ONE (06:24)
[2024-12-05] MEDS: LISINOPRIL 5 MG TABLET PO SCH (09:19)
[2024-12-05] MEDS: DOXYCYCLINE HYCLATE 100 MG TABLET PO SCH (09:20)
[2024-12-05] MEDS: CEFTRIAXONE 2 GM in DEXTROSE 5%-WATER 100 ML IVPB SCH (13:49)
[2024-12-05] MEDS: VANCOMYCIN 1 GM PREMIX (F) 1 GM/200 ML BAG IVPB SCH (16:31)
[2024-12-05] MEDS: INSULIN (NOVOLOG) ASPART 100 UNITS/ML 10ML VIAL SQ SCH (17:12)
[2024-12-05 22:06] VITALS: RESP 17
[2024-12-06 06:38] VITALS: BP 112/80; PULSE 71; TEMP 97.9
[2024-12-06 06:53] LABS: ABSOLUTE IMMATURE GRANULOCYTES 0.10 x10^3/uL (0.0-0.031); BASOPHILS # 0.03 x10^3/uL (0.01-0.08); EOSINOPHIL % 2.1 % (0.8-7.0); EOSINOPHILS # 0.16 x10^3/uL (0.04-0.54); MCHC 32.9 g/dl (32.3-36.5); MEAN CELL VOLUME 88.7 fl (79.0-92.2); MEAN PLT VOLUME 9.6 fl (9.4-12.4); MONOCYTE # 0.52 x10^3/uL (0.30-0.82); MONOCYTE % 6.9 % (5.3-12.2); RDW 14.1 % (12.2-16.4)
[2024-12-06 07:16] LABS: CO2 30.0 mmol/L (21-32); GLUCOSE,RANDOM 302.0 mg/dL (74-106)
[2024-12-06 07:20] LABS: CREATININE 0.6 mg/dL (0.55-1.3)
== END 2024-12-06 10:59 | DRG 853 ==
LOC: JER 22:05 → JERBED 22:20 → J4S 11-28 03:10
PROVIDERS: ADMIT Internal Medicine; ATTEND Internal Medicine
PROC: 0JBL0ZZ Excision of Right Upper Leg Subcutaneous Tissue and Fascia, Open Approach (ICD-10-PCS; principal; 2024-12-03 13:45)
DX: A41.9 Sepsis, unspecified organism (principal); L89.214 Pressure ulcer of right hip, stage 4; I50.32 Chronic diastolic (congestive) heart failure; L03.115 Cellulitis of right lower limb; F32.A Depression, unspecified; I48.91 Unspecified atrial fibrillation; E78.5 Hyperlipidemia, unspecified; K21.9 Gastro-esophageal reflux disease without esophagitis; I11.0 Hypertensive heart disease with heart failure; E11.65 Type 2 diabetes mellitus with hyperglycemia; F25.9 Schizoaffective disorder, unspecified
CPT/HCPCS: 0241U-QW; 36415; 71045-TC-FY; 71275-TC; 72193-TC; 73502-TC-RT-FY; 76705-TC; 80048; 80053; 81003; 82010; 82248; 82803; 82962; 83605; 83735; 83880; 84100; 84443; 84484; 85025; 85027; 85610; 85651; 86140; 86850; 86900; 86901; 87070; 87075; 87081; 87086; 87205; 93005; 93010; 93306-TC; 94760; 99285-25; Q9967

== ENCOUNTER 2025-01-19 09:30 | Inpatient (IN) | payer OTHER ==
[2025-01-19 10:34] LABS: URINE APPEARANCE CLEAR; URINE BILIRUBIN NEGATIVE (NEGATIVE); URINE COLOR YELLOW; URINE GLUCOSE (UA) NEGATIVE (NEGATIVE); URINE KETONE NEGATIVE (NEGATIVE); URINE LEUK ESTERASE NEGATIVE (NEGATIVE); URINE NITRITE NEGATIVE (NEGATIVE); URINE PROTEIN NEGATIVE (NEGATIVE); URINE UROBILINOGEN 0.2 mg/dL (0.2-1.0)
[2025-01-19 10:36] LABS: ABSOLUTE IMMATURE GRANULOCYTES 0.03 x10^3/uL (0.0-0.031); BASOPHILS # 0.02 x10^3/uL (0.01-0.08); EOSINOPHIL % 1.6 % (0.8-7.0); EOSINOPHILS # 0.12 x10^3/uL (0.04-0.54); MCHC 32.4 g/dl (32.3-36.5); MEAN CELL VOLUME 91.6 fl (79.0-92.2); MEAN PLT VOLUME 9.3 fl (9.4-12.4); MONOCYTE # 0.82 x10^3/uL (0.30-0.82); MONOCYTE % 11.1 % (5.3-12.2); RDW 14.0 % (12.2-16.4)
[2025-01-19 10:41] LABS: INR 1.37 (0.83-1.09); PROTHROMBIN TIME (PATIENT) 15.1 SEC (9.7-13.0)
[2025-01-19 10:44] LABS: ACTIVATED PTT 30.4 SECONDS (25.2-36.5)
[2025-01-19 11:00] LABS: GLUCOSE,RANDOM 93.0 mg/dL (74-106); TOT PROT 6.0 g/dl (6.4-8.2)
[2025-01-19 11:01] LABS: CO2 24.0 mmol/L (21-32)
[2025-01-19] MEDS ORDERED: ACETAMINOPHEN INJECTION 100 ML ONE (11:01)
[2025-01-19 11:03] LABS: ALK PHOS 114.0 U/L (40-150)
[2025-01-19 11:06] LABS: SGOT/AST 38.0 U/L (5-34); SGPT/ALT 33.0 U/L (0-55)
[2025-01-19 11:26] LABS: CREATININE 0.66 mg/dL (0.55-1.3)
[2025-01-19] MEDS: ACETAMINOPHEN 1000 MG/100 ML BAG IVPB ONE ×2 (11:27→21:43)
[2025-01-19] MEDS ORDERED: fentaNYL CITRATE 250 MCG/5 ML VIAL ONE (12:03)
[2025-01-19] MEDS ORDERED: FENTANYL CITRATE/PF 50 MCG/ML VIAL ONE (12:06)
[2025-01-19] MEDS: FENTANYL CITRATE/PF 50 MCG/ML VIAL IVPUSH ONE (12:22)
[2025-01-19] MEDS: DEXTROSE 5%-0.45% SALINE 1,000 ML IV SCH (12:30)
[2025-01-19] MEDS ORDERED: LISINOPRIL 5 MG TABLET ONE (14:19)
[2025-01-19] MEDS ORDERED: CHOLECALCIFEROL (VIT D3) 1,000 UNIT (25 MCG) TABLET ONE (14:19)
[2025-01-19] MEDS ORDERED: ASCORBIC ACID 500 MG TABLET (FP) ONE (14:19)
[2025-01-19] MEDS ORDERED: glipiZIDE 5 MG TABLET (FP) ONE (14:19)
[2025-01-19] MEDS ORDERED: TAMSULOSIN HCL 0.4 MG CAP ONE (14:20)
[2025-01-19] MEDS ORDERED: LACTULOSE 20 GM/30 ML UDC (FOR ORAL USE ONLY) ONE (14:20)
[2025-01-19] MEDS ORDERED: MULTIVITAMINS (DAILY MVI) TABLET (FP) ONE (14:20)
[2025-01-19] MEDS ORDERED: CARBIDOPA/LEVODOPA 25/100 TABLET (FP) ONE (14:26)
[2025-01-19] MEDS ORDERED: INSULIN GLARGINE (LANTUS) 100 UNITS/ML UNITS SQ ONE (14:37)
[2025-01-19] MEDS: LISINOPRIL 5 MG TABLET PO SCH (14:44)
[2025-01-19] MEDS: glipiZIDE 5 MG TABLET (FP) PO SCH (14:44)
[2025-01-19] MEDS: ASCORBIC ACID 500 MG TABLET (FP) PO SCH (14:44)
[2025-01-19] MEDS: INSULIN GLARGINE (LANTUS) 100 UNITS/ML UNITS SQ SCH (14:44)
[2025-01-19] MEDS: TAMSULOSIN HCL 0.4 MG CAP PO SCH (14:44)
[2025-01-19] MEDS: MULTIVITAMINS (DAILY MVI) TABLET (FP) PO SCH (14:44)
[2025-01-19] MEDS: LACTULOSE 20 GM/30 ML UDC (FOR ORAL USE ONLY) PO SCH (14:44)
[2025-01-19] MEDS: CHOLECALCIFEROL (VIT D3) 1,000 UNIT (25 MCG) TABLET PO SCH (14:45)
[2025-01-19] MEDS: CARBIDOPA/LEVODOPA 25/100 TABLET (FP) PO SCH (14:45)
[2025-01-19] MEDS: ACETAMINOPHEN 325 MG TABLET (FP) PO PRN (15:49)
[2025-01-19] MEDS ORDERED: INSULIN (NOVOLOG) ASPART 100 UNITS/ML 10ML VIAL SQ SCH (16:30)
[2025-01-19] MEDS ORDERED: INSULIN ASPART SLIDING SCALE (NOVOLOG) 1 VIAL SQ ONE (17:33)
[2025-01-19] MEDS: INSULIN ASPART SLIDING SCALE (NOVOLOG) 1 VIAL SQ SCH (17:38)
[2025-01-19 17:55] VITALS: BMI 27.6
[2025-01-19] MEDS: QUEtiapine FUMARATE 100 MG TABLET (FP) PO SCH (21:21)
[2025-01-19] MEDS: MELATONIN 5 MG TABLETS PO SCH (21:21)
[2025-01-19] MEDS: ATORVASTATIN CA 40 MG TABLET (FP) PO SCH (21:21)
[2025-01-19] MEDS: PRAMIPEXOLE DIHYDROCHLORIDE 0.25 MG TABLET PO SCH (21:21)
[2025-01-19] MEDS: MIRTAZAPINE 15 MG TABLET (FP) PO SCH (21:21)
[2025-01-20] MEDS: ACETAMINOPHEN 1000 MG/100 ML BAG IVPB ONE (04:26)
[2025-01-20 09:16] LABS: ABSOLUTE IMMATURE GRANULOCYTES 0.05 x10^3/uL (0.0-0.031); BASOPHILS # 0.02 x10^3/uL (0.01-0.08); EOSINOPHIL % 2.2 % (0.8-7.0); EOSINOPHILS # 0.17 x10^3/uL (0.04-0.54); MCHC 32.9 g/dl (32.3-36.5); MEAN CELL VOLUME 91.7 fl (79.0-92.2); MEAN PLT VOLUME 9.7 fl (9.4-12.4); MONOCYTE # 0.68 x10^3/uL (0.30-0.82); MONOCYTE % 8.9 % (5.3-12.2); RDW 14.1 % (12.2-16.4)
[2025-01-20] MEDS: ACETAMINOPHEN 325 MG TABLET (FP) PO PRN (09:54)
[2025-01-20 10:07] LABS: GLUCOSE,RANDOM 254 mg/dL (74-106); TOT PROT 5.4 g/dl (6.4-8.2)
[2025-01-20 10:08] LABS: CO2 27 mmol/L (21-32)
[2025-01-20 10:13] LABS: ALK PHOS 104 U/L (40-150); CREATININE 0.63 mg/dL (0.55-1.3); SGOT/AST 16 U/L (5-34); SGPT/ALT < 6 U/L (0-55)
[2025-01-20] MEDS: morphine CARPU-JECT 2 MG/1 ML DISP.SYRIN IM PRN (13:59)
[2025-01-21] MEDS: morphine CARPU-JECT 2 MG/1 ML DISP.SYRIN IVPUSH PRN ×2 (07:08→16:01)
[2025-01-21] MEDS ORDERED: MIDAZOLAM HCL 2 MG/2 ML SINGLE DOSE VIAL ONE (10:20)
[2025-01-21] MEDS ORDERED: PROPOFOL 60 ML ONE (10:21)
[2025-01-21] MEDS ORDERED: ACETAMINOPHEN INJECTION 100 ML ONE (10:25)
[2025-01-21] MEDS ORDERED: BUPIVACAINE HCL/PF 0.5% (5MG/ML) 10 ML VIAL ONE (10:25)
[2025-01-21] MEDS ORDERED: SUCCINYLCHOLINE CHLORIDE 200 MG/10 ML SYRINGE ONE (10:54)
[2025-01-21] MEDS ORDERED: MAGNESIUM SULF 50% (8.12 MEQ/2 ML-1 GM VIAL) ONE (10:55)
[2025-01-21] MEDS ORDERED: ONDANSETRON 4 MG/2 ML VIAL ONE (10:55)
[2025-01-21] MEDS ORDERED: GLYCOPYRROLATE 0.2 MG/1 ML VIAL ONE (10:55)
[2025-01-21] MEDS ORDERED: DEXAMETHASONE SOD PHOSPHATE 4 MG/1 ML VIAL ONE (10:55)
[2025-01-21] MEDS ORDERED: LIDOCAINE HCL/PF 2% SDV 5ML VIAL ONE (10:55)
[2025-01-21] MEDS ORDERED: PROPOFOL 20 ML ONE (10:56)
[2025-01-21] MEDS ORDERED: LACTATED RINGERS SOLUTION 1,000 ML IV SCH ×2 (12:45→13:30)
[2025-01-21] MEDS ORDERED: ACETAMINOPHEN 325 MG TABLET (FP) PO PRN (13:07)
[2025-01-21] MEDS ORDERED: morphine CARPU-JECT 2 MG/1 ML DISP.SYRIN IVPUSH PRN (13:07)
[2025-01-21] MEDS ORDERED: DEXTROSE 5%-0.45% SALINE 1,000 ML IV SCH (13:07)
[2025-01-21] MEDS: DEXTROSE 5%-0.45% SALINE 1,000 ML IV SCH (13:15)
[2025-01-21] MEDS ORDERED: CARBIDOPA/LEVODOPA 25/100 TABLET (FP) PO SCH (14:00)
[2025-01-21] MEDS: CARBIDOPA/LEVODOPA 25/100 TABLET (FP) PO SCH (14:54)
[2025-01-21] MEDS ORDERED: INSULIN ASPART SLIDING SCALE (NOVOLOG) 1 VIAL SQ SCH (16:30)
[2025-01-21] MEDS: INSULIN ASPART SLIDING SCALE (NOVOLOG) 1 VIAL SQ SCH (16:33)
[2025-01-21] MEDS ORDERED: CEFAZOLIN SODIUM 2 GM in DEXTROSE 5%-WATER 100 ML IVPB SCH (20:00)
[2025-01-21] MEDS: QUEtiapine FUMARATE 100 MG TABLET (FP) PO SCH (21:18)
[2025-01-21] MEDS: CEFAZOLIN SODIUM 2 GM in DEXTROSE 5%-WATER - 50 ML IVPB SCH (21:18)
[2025-01-21] MEDS: MIRTAZAPINE 15 MG TABLET (FP) PO SCH (21:18)
[2025-01-21] MEDS: ATORVASTATIN CA 40 MG TABLET (FP) PO SCH (21:19)
[2025-01-21] MEDS: INSULIN GLARGINE (LANTUS) 100 UNITS/ML UNITS SQ SCH (21:20)
[2025-01-21] MEDS: MELATONIN 5 MG TABLETS PO SCH (21:20)
[2025-01-21] MEDS: PRAMIPEXOLE DIHYDROCHLORIDE 0.25 MG TABLET PO SCH (21:20)
[2025-01-21] MEDS ORDERED: MELATONIN 5 MG TABLETS PO SCH (22:00)
[2025-01-21] MEDS ORDERED: MIRTAZAPINE 15 MG TABLET (FP) PO SCH (22:00)
[2025-01-21] MEDS ORDERED: QUEtiapine FUMARATE 100 MG TABLET (FP) PO SCH (22:00)
[2025-01-21] MEDS ORDERED: INSULIN GLARGINE (LANTUS) 100 UNITS/ML UNITS SQ SCH (22:00)
[2025-01-21] MEDS ORDERED: ATORVASTATIN CA 40 MG TABLET (FP) PO SCH (22:00)
[2025-01-21] MEDS ORDERED: PRAMIPEXOLE DIHYDROCHLORIDE 0.25 MG TABLET PO SCH (22:00)
[2025-01-22] MEDS: glipiZIDE 5 MG TABLET (FP) PO SCH (06:25)
[2025-01-22] MEDS ORDERED: glipiZIDE 5 MG TABLET (FP) PO SCH (07:00)
[2025-01-22] MEDS ORDERED: INSULIN GLARGINE (LANTUS) 100 UNITS/ML UNITS SQ ONE (08:02)
[2025-01-22] MEDS ORDERED: TAMSULOSIN HCL 0.4 MG CAP PO SCH (08:30)
[2025-01-22] MEDS: TAMSULOSIN HCL 0.4 MG CAP PO SCH (08:42)
[2025-01-22 09:21] LABS: GLUCOSE,RANDOM 244.0 mg/dL (74-106)
[2025-01-22 09:22] LABS: CO2 29.0 mmol/L (21-32)
[2025-01-22 09:26] LABS: CREATININE 0.55 mg/dL (0.55-1.3)
[2025-01-22] MEDS ORDERED: ENOXAPARIN NA (PORCINE) 40 MG/0.4 ML DISP.SYRIN SQ SCH ×2 (10:00)
[2025-01-22] MEDS ORDERED: LISINOPRIL 5 MG TABLET PO SCH (10:00)
[2025-01-22] MEDS ORDERED: ASCORBIC ACID 500 MG TABLET (FP) PO SCH (10:00)
[2025-01-22] MEDS ORDERED: LACTULOSE 20 GM/30 ML UDC (FOR ORAL USE ONLY) PO SCH (10:00)
[2025-01-22] MEDS ORDERED: CHOLECALCIFEROL (VIT D3) 1,000 UNIT (25 MCG) TABLET PO SCH (10:00)
[2025-01-22] MEDS ORDERED: MULTIVITAMINS (DAILY MVI) TABLET (FP) PO SCH (10:00)
[2025-01-22] MEDS: ENOXAPARIN NA (PORCINE) 40 MG/0.4 ML DISP.SYRIN SQ SCH (10:17)
[2025-01-22] MEDS: LACTULOSE 20 GM/30 ML UDC (FOR ORAL USE ONLY) PO SCH (10:18)
[2025-01-22] MEDS: LISINOPRIL 5 MG TABLET PO SCH (10:18)
[2025-01-22] MEDS: CHOLECALCIFEROL (VIT D3) 1,000 UNIT (25 MCG) TABLET PO SCH (10:18)
[2025-01-22] MEDS: ASCORBIC ACID 500 MG TABLET (FP) PO SCH (10:18)
[2025-01-22] MEDS: MULTIVITAMINS (DAILY MVI) TABLET (FP) PO SCH (10:18)
[2025-01-22 12:21] LABS: ABSOLUTE IMMATURE GRANULOCYTES 0.05 x10^3/uL (0.0-0.031); MCHC 32.9 g/dl (32.3-36.5)
[2025-01-22 12:23] LABS: BASOPHILS # 0.00 x10^3/uL (0.01-0.08); EOSINOPHIL % 0.6 % (0.8-7.0); EOSINOPHILS # 0.05 x10^3/uL (0.04-0.54); IMMATURE PLATELET FRACTION # 3.50 x10^3/uL; MEAN CELL VOLUME 90.9 fl (79.0-92.2); MEAN PLT VOLUME 9.9 fl (9.4-12.4); MONOCYTE # 0.70 x10^3/uL (0.30-0.82); MONOCYTE % 8.2 % (5.3-12.2); RDW 13.4 % (12.2-16.4)
[2025-01-22] MEDS: ACETAMINOPHEN 325 MG TABLET (FP) PO PRN (12:46)
[2025-01-22 12:50] LABS: GLUCOSE,RANDOM 281.0 mg/dL (74-106)
[2025-01-22 12:52] LABS: CO2 28.0 mmol/L (21-32)
[2025-01-22 12:56] LABS: CREATININE 0.55 mg/dL (0.55-1.3)
[2025-01-23] MEDS ORDERED: INSULIN GLARGINE (LANTUS) 100 UNITS/ML UNITS SQ ONE (06:50)
[2025-01-24] MEDS ORDERED: morphine CARPU-JECT 2 MG/1 ML DISP.SYRIN SQ PRN (15:44)
[2025-01-24] MEDS: morphine CARPU-JECT 2 MG/1 ML DISP.SYRIN IVPUSH PRN (16:31)
[2025-01-25 09:53] LABS: ABSOLUTE IMMATURE GRANULOCYTES 0.04 x10^3/uL (0.0-0.031); BASOPHILS # 0.03 x10^3/uL (0.01-0.08); EOSINOPHIL % 2.0 % (0.8-7.0); EOSINOPHILS # 0.16 x10^3/uL (0.04-0.54); MCHC 32.9 g/dl (32.3-36.5); MEAN CELL VOLUME 90.3 fl (79.0-92.2); MEAN PLT VOLUME 9.9 fl (9.4-12.4); MONOCYTE # 0.68 x10^3/uL (0.30-0.82); MONOCYTE % 8.6 % (5.3-12.2); RDW 13.6 % (12.2-16.4)
[2025-01-25 10:21] LABS: GLUCOSE,RANDOM 254.0 mg/dL (74-106)
[2025-01-25 10:22] LABS: CO2 28.0 mmol/L (21-32)
[2025-01-25 10:26] LABS: CREATININE 0.55 mg/dL (0.55-1.3)
[2025-01-27] MEDS: morphine CARPU-JECT 2 MG/1 ML DISP.SYRIN IVPUSH PRN (15:32)
[2025-01-27] MEDS ORDERED: OLANZapine 7.5 MG TABLET PO SCH (22:00)
[2025-01-29 06:53] VITALS: TEMP 98.1
[2025-01-29 09:47] VITALS: BP 110/92; PULSE 85; RESP 19
== END 2025-01-29 13:20 | DRG 480 ==
LOC: JER 09:30 → JERBED 12:28 → J6S 15:01
PROVIDERS: ADMIT Internal Medicine; ATTEND Internal Medicine
PROC: 0QH706Z Insertion of Intramedullary Internal Fixation Device into Left Upper Femur, Open Approach (ICD-10-PCS; principal; 2025-01-21 11:00)
DX: S72.142A Displaced intertrochanteric fracture of left femur, initial encounter for closed fracture (principal); L89.214 Pressure ulcer of right hip, stage 4; I69.354 Hemiplegia and hemiparesis following cerebral infarction affecting left non-dominant side; I10 Essential (primary) hypertension; E78.5 Hyperlipidemia, unspecified; F25.0 Schizoaffective disorder, bipolar type; E11.9 Type 2 diabetes mellitus without complications; K21.9 Gastro-esophageal reflux disease without esophagitis; S00.03XA Contusion of scalp, initial encounter; W19.XXXA Unspecified fall, initial encounter; Y93.89 Activity, other specified; Y92.129 Unspecified place in nursing home as the place of occurrence of the external cause; Y99.8 Other external cause status
CPT/HCPCS: 36415; 70450-TC; 70486-TC; 71045-TC-FY; 72125-TC; 72170-TC-FY; 73502-TC-LT-FY; 73562-TC-LT-FY; 76000-TC-FY; 80048; 80053; 81003; 82962; 83735; 84100; 84484; 85025; 85610; 85730; 86850; 86900; 86901; 87086; 93005; 93010; 94010; 94760; 97116-GP; 97162-GP; 99285-25; C1713

== ENCOUNTER 2025-02-21 12:04 | Emergency (ER) | payer OTHER ==
[2025-02-21 12:22] VITALS: RESP 18; BMI 29.0
[2025-02-21 19:04] VITALS: BP 110/60; PULSE 68; TEMP 97.8
== END 2025-02-21 19:15 ==
LOC: JER 12:04
DX: M25.552 Pain in left hip (principal); M25.562 Pain in left knee; W01.198A Fall on same level from slipping, tripping and stumbling with subsequent striking against other object, initial encounter; Y93.01 Activity, walking, marching and hiking
CPT/HCPCS: 70450-TC; 72125-TC; 72170-TC-FY; 73502-TC-LT-FY; 73562-TC-LT-FY; 82962; 93005; 93010; 99285-25